=== PATIENT | female | born 1955 | race Caucasian/White ===

== ENCOUNTER 2017-05-05 15:51 | Inpatient (IN) ==
[2017-05-05] MEDS ORDERED: CLINDAMYCIN INJ 600 MG in PREMIX 1 EACH IV STA (17:28)
[2017-05-05] MEDS ORDERED: methylPREDNISolone SOD SUC 125 MG/2 ML VIAL IV STA (17:28)
[2017-05-05] MEDS ORDERED: FUROSEMIDE 100 MG/10 ML VIAL IV STA (17:28)
[2017-05-05] MEDS ORDERED: ONDANSETRON 4 MG/2 ML VIAL IV STA (17:28)
[2017-05-05] MEDS ORDERED: ALBUTEROL NEB SOLN 5 MG/ML 20 ML/BOTTLE RESP TX SCH (17:30)
[2017-05-05] MEDS ORDERED: CLINDAMYCIN INJ 50 ML IV ONE (17:54)
[2017-05-05] MEDS ORDERED: ONDANSETRON 4 MG/2 ML VIAL ONE (17:54)
[2017-05-05] MEDS ORDERED: methylPREDNISolone SOD SUC 125 MG/2 ML VIAL ONE (17:55)
[2017-05-05] MEDS ORDERED: FUROSEMIDE 100 MG/10 ML VIAL ONE (17:55)
[2017-05-05 18:27] LABS: Basophils # 0.1 10*3/uL (0.0-0.2); Basophils % 0.7 % (0.0-0.8); Eosinophils # 0.2 10*3/uL (0.0-0.87); Eosinophils % 2.1 % (0.00-10.9); Hemoglobin 8.7 GM/DL (12.0-16.0); Immature Granulocytes % 1.1 %; Immature Granulocytes Absolute 0.12 #; Lymphocytes # 2.2 10*3/uL (1.4-4.0); Lymphocytes % 20.4 % (21.3-54.2); Mean Corpuscular HGB Conc 28.5 GM/DL (32-36); Mean Corpuscular Hemoglobin 26 PG (27-34); Mean Corpuscular Volume 90.8 FL (87-102); Mean Platelet Volume 11.2 FL (9.6-12.0); Monocytes # 0.7 10*3/uL (0.11-0.8); Monocytes % 6.1 % (1.7-12.7); Neutrophils # 7.5 10*3/uL (1.4-7.4); Neutrophils % 69.6 % (38.7-73.9); Platelet Count 99 T/CUMM (130-400); Red Blood Count 3.36 MC/CUMM (3.8-5.5); White Blood Count 10.8 T/CUMM (4-12)
[2017-05-05 18:38] LABS: Ammonia 24 UMOL/L (11-32)
[2017-05-05 18:41] LABS: Lactic Acid 0.9 MMOL/L (0.4-2.0)
[2017-05-05 18:43] LABS: Apearance,Urine CLEAR (Clear); Bilirubin,Urine Negative (Negative); Blood, Urine Negative (Negative); Glucose,Urine (UA) Negative (Negative); Ketones,Urine Negative (Negative); Mucus,Urine Occasional /LPF (Occasional); Nitrite,Urine Negative (Negative); Protein,Urine 30 MG/DL; RBC,Urine 1 /HPF (0-4); Urine Color Yellow (Yellow); Urine Specific Gravity 1.009 (1.001-1.035); Urine Urobilinogen < 2.0 EU/DL (0.2-1.0); WBC,Urine 2 /HPF (0-6)
[2017-05-05 18:43] LABS: Alanine Aminotransferase 26 U/L (13-56); Albumin 2.9 G/DL (3.4-5.0); Alkaline Phosphatase 175 U/L (45-117); Aspartate Amino Transferase 35 U/L (0-37); Blood Urea Nitrogen 14 MG/DL (7-18); Calcium 8.4 MG/DL (8.5-10.1); Glucose 147 MG/DL (74-106); Magnesium 2.2 MG/DL (1.8-2.4); Potassium 5.6 MMOL/L (3.5-5.1); Sodium 136 MMOL/L (136-145); Total Protein 7.1 G/DL (6.4-8.3); Troponin I Only < 0.015 NG/ML (0.00-0.045)
[2017-05-05 18:46] LABS: Hematocrit 30.5 VOL% (35.7-47.0)
[2017-05-05] MEDS ORDERED: ONDANSETRON 4 MG/2 ML VIAL IV PRN (19:39)
[2017-05-05] MEDS ORDERED: DEXTROSE 50% 25 GM/50 ML VIAL IV PRN (19:39)
[2017-05-05] MEDS ORDERED: SODIUM POLYSTYRENE SULFATE 15 GM/60 ML BOTTLE PO ONE (19:39)
[2017-05-05] MEDS ORDERED: GLUCAGON 1 MG VIAL IM PRN (19:39)
[2017-05-05] MEDS ORDERED: rOPINIRole 1 MG TABLET PO PRN (19:46)
[2017-05-05] MEDS ORDERED: LACTULOSE 160 GM/240 ML BOTTLE PO PRN (21:04)
[2017-05-05] MEDS: RIFAXIMIN 550 MG TABLET PO SCH (22:00)
[2017-05-05] MEDS: PREGABALIN 100 MG CAPSULE PO SCH (22:00)
[2017-05-05] MEDS: LEVOFLOXACIN INJ 750 MG in PREMIX 1 EACH IV SCH (22:01)
[2017-05-05] MEDS: PROPRANOLOL 10 MG TABLET PO SCH (22:01)
[2017-05-05] MEDS: INSULIN REGULAR 100 UNIT/ML SUBCUT SCH (22:23)
[2017-05-05] MEDS: traZODone 50 MG TABLET PO SCH (23:07)
[2017-05-05] MEDS: ALBUTEROL/IPRATROPIUM 3 ML NEB RESP TX SCH (23:48)
[2017-05-06] MEDS: LEVOTHYROXINE 75 MCG TABLET PO SCH (06:11)
[2017-05-06 06:33] LABS: Basophils % 0.2 % (0.0-0.8); Hematocrit 29.7 VOL% (35.7-47.0); Hemoglobin 8.6 GM/DL (12.0-16.0); Immature Granulocytes % 1.7 %; Immature Granulocytes Absolute 0.09 #; Lymphocytes # 0.7 10*3/uL (1.4-4.0); Lymphocytes % 13.4 % (21.3-54.2); Mean Corpuscular Hemoglobin 26 PG (27-34); Mean Corpuscular Volume 90.3 FL (87-102); Mean Platelet Volume 11.3 FL (9.6-12.0); Monocytes # 0.1 10*3/uL (0.11-0.8); Monocytes % 0.9 % (1.7-12.7); Neutrophils # 4.6 10*3/uL (1.4-7.4); Neutrophils % 83.8 % (38.7-73.9); Red Blood Count 3.29 MC/CUMM (3.8-5.5); Red Cell Distribution Width 17.8 % (9.3-17.3); White Blood Count 5.4 T/CUMM (4-12)
[2017-05-06 06:40] LABS: Platelet Count 86 T/CUMM (130-400)
[2017-05-06 06:55] LABS: Giant Platelets Few; Hypochromasia 1+; Platelet Estimate Decreased
[2017-05-06 06:56] LABS: Ovalocytes Slight
[2017-05-06] MEDS ORDERED: LACTULOSE 20 GM/30 ML UDCUP PO PRN (07:00)
[2017-05-06 07:05] LABS: Albumin 2.7 G/DL (3.4-5.0); Bilirubin,Total 0.8 MG/DL (0.2-1.0); Calcium 8.4 MG/DL (8.5-10.1); Osmolality,Calculated 288.3 MOS/KG (273-304); Potassium 5.1 MMOL/L (3.5-5.1); Total Protein 6.7 G/DL (6.4-8.3)
[2017-05-06] MEDS: ALBUTEROL/IPRATROPIUM 3 ML NEB RESP TX SCH ×2 (07:32→19:04)
[2017-05-06] MEDS: ASPIRIN EC 81 MG TABLET PO SCH (09:24)
[2017-05-06] MEDS: PREGABALIN 100 MG CAPSULE PO SCH ×2 (09:24→20:47)
[2017-05-06] MEDS: SPIRONOLACTONE 50 MG TABLET PO SCH (09:24)
[2017-05-06] MEDS: PANTOPRAZOLE 40 MG TABLET PO SCH (09:24)
[2017-05-06] MEDS: CHOLECALCIFEROL 1,000 UNIT TABLET PO SCH (09:24)
[2017-05-06] MEDS: EZETIMIBE 10 MG TABLET PO SCH (09:24)
[2017-05-06] MEDS: PROPRANOLOL 10 MG TABLET PO SCH ×3 (09:24→20:46)
[2017-05-06] MEDS: RIFAXIMIN 550 MG TABLET PO SCH ×2 (09:24→20:47)
[2017-05-06] MEDS: CYCLOBENZAPRINE 10 MG TABLET PO SCH (09:24)
[2017-05-06] MEDS: INSULIN REGULAR 100 UNIT/ML SUBCUT SCH ×3 (09:25→16:29)
[2017-05-06] MEDS: SERTRALINE 50 MG TABLET PO SCH (09:25)
[2017-05-06] MEDS: INSULIN GLARGINE 100 UNIT/ML SUBCUT SCH (09:30)
[2017-05-06] MEDS: ACETAMINOPHEN 325 MG TABLET PO PRN ×2 (16:00→20:49)
[2017-05-06] MEDS: FUROSEMIDE 40 MG/4 ML VIAL IV SCH (17:21)
[2017-05-06] MEDS: traZODone 50 MG TABLET PO SCH (20:48)
[2017-05-06] MEDS: LEVOFLOXACIN INJ 750 MG in PREMIX 1 EACH IV SCH (20:53)
[2017-05-07] MEDS: INSULIN REGULAR 100 UNIT/ML SUBCUT SCH ×5 (00:07→21:48)
[2017-05-07] MEDS: ALBUTEROL/IPRATROPIUM 3 ML NEB RESP TX SCH ×5 (00:44→20:08)
[2017-05-07] MEDS: LEVOTHYROXINE 75 MCG TABLET PO SCH (05:22)
[2017-05-07 05:48] LABS: Basophils # 0.1 10*3/uL (0.0-0.2); Basophils % 0.6 % (0.0-0.8); Eosinophils # 0.2 10*3/uL (0.0-0.87); Eosinophils % 2.1 % (0.00-10.9); Hematocrit 29.1 VOL% (35.7-47.0); Hemoglobin 8.4 GM/DL (12.0-16.0); Immature Granulocytes % 0.7 %; Immature Granulocytes Absolute 0.07 #; Lymphocytes # 3.3 10*3/uL (1.4-4.0); Lymphocytes % 30.8 % (21.3-54.2); Mean Corpuscular HGB Conc 28.9 GM/DL (32-36); Mean Corpuscular Hemoglobin 26 PG (27-34); Mean Platelet Volume 11.3 FL (9.6-12.0); Monocytes # 0.9 10*3/uL (0.11-0.8); Neutrophils # 6.2 10*3/uL (1.4-7.4); Neutrophils % 57.8 % (38.7-73.9); Platelet Count 102 T/CUMM (130-400); Red Blood Count 3.27 MC/CUMM (3.8-5.5); Red Cell Distribution Width 17.7 % (9.3-17.3); White Blood Count 10.7 T/CUMM (4-12)
[2017-05-07 06:08] LABS: Hypochromasia 1+; Microcytosis 1+; Platelet Estimate Adequate
[2017-05-07 06:21] LABS: Calcium 8.2 MG/DL (8.5-10.1); Osmolality,Calculated 284.3 MOS/KG (273-304); Potassium 4.4 MMOL/L (3.5-5.1)
[2017-05-07] MEDS: INSULIN GLARGINE 100 UNIT/ML SUBCUT SCH (09:56)
[2017-05-07] MEDS: FUROSEMIDE 40 MG/4 ML VIAL IV SCH ×2 (09:57→15:14)
[2017-05-07] MEDS: SERTRALINE 50 MG TABLET PO SCH (09:58)
[2017-05-07] MEDS: CYCLOBENZAPRINE 10 MG TABLET PO SCH (09:58)
[2017-05-07] MEDS: RIFAXIMIN 550 MG TABLET PO SCH ×2 (09:58→21:46)
[2017-05-07] MEDS: PREGABALIN 100 MG CAPSULE PO SCH ×2 (09:58→21:45)
[2017-05-07] MEDS: PROPRANOLOL 10 MG TABLET PO SCH ×3 (09:58→21:45)
[2017-05-07] MEDS: ASPIRIN EC 81 MG TABLET PO SCH (09:58)
[2017-05-07] MEDS: SPIRONOLACTONE 50 MG TABLET PO SCH (09:58)
[2017-05-07] MEDS: PANTOPRAZOLE 40 MG TABLET PO SCH (09:58)
[2017-05-07] MEDS: CHOLECALCIFEROL 1,000 UNIT TABLET PO SCH (09:58)
[2017-05-07] MEDS: EZETIMIBE 10 MG TABLET PO SCH (09:58)
[2017-05-07] MEDS: ACETAMINOPHEN 325 MG TABLET PO PRN (12:18)
[2017-05-07] MEDS: traZODone 50 MG TABLET PO SCH (21:46)
[2017-05-07] MEDS: LEVOFLOXACIN INJ 750 MG in PREMIX 1 EACH IV SCH (21:52)
[2017-05-08] MEDS: ALBUTEROL/IPRATROPIUM 3 ML NEB RESP TX SCH ×4 (00:09→20:10)
[2017-05-08 05:24] LABS: Basophils # 0.1 10*3/uL (0.0-0.2); Basophils % 0.7 % (0.0-0.8); Eosinophils # 0.3 10*3/uL (0.0-0.87); Eosinophils % 3.6 % (0.00-10.9); Hematocrit 28.9 VOL% (35.7-47.0); Hemoglobin 8.5 GM/DL (12.0-16.0); Immature Granulocytes % 0.6 %; Immature Granulocytes Absolute 0.05 #; Lymphocytes # 2.4 10*3/uL (1.4-4.0); Mean Corpuscular HGB Conc 29.4 GM/DL (32-36); Mean Corpuscular Hemoglobin 26 PG (27-34); Mean Corpuscular Volume 87.6 FL (87-102); Mean Platelet Volume 11.5 FL (9.6-12.0); Monocytes # 0.7 10*3/uL (0.11-0.8); Monocytes % 8.8 % (1.7-12.7); Neutrophils # 4.8 10*3/uL (1.4-7.4); Neutrophils % 57.3 % (38.7-73.9); Platelet Count 103 T/CUMM (130-400); Red Cell Distribution Width 17.7 % (9.3-17.3); White Blood Count 8.3 T/CUMM (4-12)
[2017-05-08] MEDS: LEVOTHYROXINE 75 MCG TABLET PO SCH (05:50)
[2017-05-08 05:58] LABS: Calcium 8.1 MG/DL (8.5-10.1); Osmolality,Calculated 284.3 MOS/KG (273-304); Potassium 4.2 MMOL/L (3.5-5.1)
[2017-05-08 06:17] LABS: Giant Platelets Few; Hypochromasia 1+; Microcytosis Slight; Ovalocytes Slight; Platelet Estimate Decreased
[2017-05-08] MEDS: INSULIN REGULAR 100 UNIT/ML SUBCUT SCH ×4 (09:07→21:32)
[2017-05-08] MEDS: INSULIN GLARGINE 100 UNIT/ML SUBCUT SCH (09:33)
[2017-05-08] MEDS: SERTRALINE 50 MG TABLET PO SCH (09:34)
[2017-05-08] MEDS: PREGABALIN 100 MG CAPSULE PO SCH ×2 (09:34→21:29)
[2017-05-08] MEDS: CHOLECALCIFEROL 1,000 UNIT TABLET PO SCH (09:34)
[2017-05-08] MEDS: EZETIMIBE 10 MG TABLET PO SCH (09:34)
[2017-05-08] MEDS: ASPIRIN EC 81 MG TABLET PO SCH (09:34)
[2017-05-08] MEDS: RIFAXIMIN 550 MG TABLET PO SCH ×2 (09:34→21:28)
[2017-05-08] MEDS: PROPRANOLOL 10 MG TABLET PO SCH ×3 (09:34→21:28)
[2017-05-08] MEDS: FUROSEMIDE 40 MG/4 ML VIAL IV SCH (09:35)
[2017-05-08] MEDS: SPIRONOLACTONE 50 MG TABLET PO SCH (09:35)
[2017-05-08] MEDS: CYCLOBENZAPRINE 10 MG TABLET PO SCH (09:35)
[2017-05-08] MEDS: PANTOPRAZOLE 40 MG TABLET PO SCH (09:35)
[2017-05-08] MEDS ORDERED: traZODone 50 MG TABLET PO PRN (11:37)
[2017-05-08] MEDS ORDERED: KETOROLAC 30 MG/1 ML VIAL IM ONE (13:15)
[2017-05-08] MEDS: NYSTATIN 500,000 UNIT/5 ML UDCUP SWISH/SWAL SCH ×3 (14:24→21:30)
[2017-05-08] MEDS: FUROSEMIDE 40 MG TABLET PO SCH (17:12)
[2017-05-08] MEDS ORDERED: ZALEPLON 5 MG CAPSULE PO PRN (19:00)
[2017-05-08] MEDS: ACETAMINOPHEN 325 MG TABLET PO PRN (21:27)
[2017-05-08] MEDS: NYSTATIN CREAM 15 GM TUBE TOP SCH (21:31)
[2017-05-08] MEDS: LEVOFLOXACIN INJ 750 MG in PREMIX 1 EACH IV SCH (21:33)
[2017-05-09] MEDS: ALBUTEROL/IPRATROPIUM 3 ML NEB RESP TX SCH ×3 (00:27→13:00)
[2017-05-09] MEDS ORDERED: KETOROLAC 15 MG/1 ML VIAL IV ONE (01:00)
[2017-05-09] MEDS: LEVOTHYROXINE 75 MCG TABLET PO SCH (06:01)
[2017-05-09 06:06] LABS: Basophils # 0.1 10*3/uL (0.0-0.2); Basophils % 0.7 % (0.0-0.8); Eosinophils # 0.4 10*3/uL (0.0-0.87); Eosinophils % 4.8 % (0.00-10.9); Hematocrit 28.4 VOL% (35.7-47.0); Hemoglobin 8.8 GM/DL (12.0-16.0); Immature Granulocytes % 0.4 %; Immature Granulocytes Absolute 0.03 #; Lymphocytes # 2.6 10*3/uL (1.4-4.0); Lymphocytes % 34.1 % (21.3-54.2); Mean Corpuscular Hemoglobin 26 PG (27-34); Mean Platelet Volume 11.5 FL (9.6-12.0); Monocytes # 0.6 10*3/uL (0.11-0.8); Monocytes % 8.4 % (1.7-12.7); Neutrophils # 3.9 10*3/uL (1.4-7.4); Neutrophils % 51.6 % (38.7-73.9); Platelet Count 90 T/CUMM (130-400); Red Blood Count 3.38 MC/CUMM (3.8-5.5); Red Cell Distribution Width 17.5 % (9.3-17.3); White Blood Count 7.5 T/CUMM (4-12)
[2017-05-09 06:34] LABS: Hypochromasia 2+; Macrocytosis 1+; Platelet Estimate Decreased
[2017-05-09 06:37] LABS: Calcium 8.5 MG/DL (8.5-10.1); Osmolality,Calculated 276.8 MOS/KG (273-304); Potassium 3.6 MMOL/L (3.5-5.1)
[2017-05-09] MEDS: INSULIN REGULAR 100 UNIT/ML SUBCUT SCH ×3 (07:23→17:16)
[2017-05-09] MEDS: INSULIN GLARGINE 100 UNIT/ML SUBCUT SCH (10:10)
[2017-05-09] MEDS: SPIRONOLACTONE 50 MG TABLET PO SCH (10:11)
[2017-05-09] MEDS: CHOLECALCIFEROL 1,000 UNIT TABLET PO SCH (10:11)
[2017-05-09] MEDS: SERTRALINE 50 MG TABLET PO SCH (10:11)
[2017-05-09] MEDS: EZETIMIBE 10 MG TABLET PO SCH (10:12)
[2017-05-09] MEDS: RIFAXIMIN 550 MG TABLET PO SCH (10:12)
[2017-05-09] MEDS: ASPIRIN EC 81 MG TABLET PO SCH (10:12)
[2017-05-09] MEDS: PANTOPRAZOLE 40 MG TABLET PO SCH (10:12)
[2017-05-09] MEDS: NYSTATIN CREAM 15 GM TUBE TOP SCH (10:12)
[2017-05-09] MEDS: PREGABALIN 100 MG CAPSULE PO SCH (10:12)
[2017-05-09] MEDS: FUROSEMIDE 40 MG TABLET PO SCH (10:12)
[2017-05-09] MEDS: CYCLOBENZAPRINE 10 MG TABLET PO SCH (10:12)
[2017-05-09] MEDS: PROPRANOLOL 10 MG TABLET PO SCH ×2 (10:12→14:23)
[2017-05-09] MEDS: NYSTATIN 500,000 UNIT/5 ML UDCUP SWISH/SWAL SCH ×3 (10:13→17:18)
[2017-05-09] MEDS ORDERED: POTASSIUM CHLORIDE 20 MEQ TABLET PO SCH (13:00)
[2017-05-09 16:32] VITALS: BP 112/57
[2017-05-09] MEDS ORDERED: ASCORBIC ACID 500 MG TABLET PO SCH (21:00)
[2017-05-10] MEDS ORDERED: FUROSEMIDE 40 MG TABLET PO SCH (09:00)
== END 2017-05-09 18:05 | disposition home or self-care (01) | DRG 193 ==
LOC: EDBD → EDUNIT# → N.ED 15:51 → SUATTDRO 18:10 → N.EDINP 18:10 → N.2E 20:53
PROVIDERS: ATTEND Internal Medicine Nephrology

== ENCOUNTER 2019-09-10 12:47 | Inpatient (IN) ==
[2019-09-10] MEDS ORDERED: PANTOPRAZOLE 40 MG VIAL IV STA (13:21)
[2019-09-10] MEDS ORDERED: SODIUM CHLORIDE 0.9% 500 ML IV STA (13:21)
[2019-09-10] MEDS ORDERED: SODIUM CHLORIDE 0.9% 1,000 ML IV STA (13:21)
[2019-09-10 14:19] LABS: Basophils % 0.6 % (0.0-0.8); Eosinophils # 0.1 10*3/uL (0.0-0.87); Eosinophils % 1.9 % (0.00-10.9); Hematocrit 29.8 VOL% (35.7-47.0); Immature Granulocytes % 0.4 %; Immature Granulocytes Absolute 0.02 #; Lymphocytes # 1.1 10*3/uL (1.4-4.0); Lymphocytes % 20.8 % (21.3-54.2); Mean Corpuscular HGB Conc 30.2 GM/DL (32-36); Mean Platelet Volume 11.1 FL (9.6-12.0); Monocytes % 7.8 % (1.7-12.7); Neutrophils % 68.5 % (38.7-73.9); Platelet Count 87 T/CUMM (130-400); Red Blood Count 3.92 MC/CUMM (3.8-5.5); Red Cell Distribution Width 18.7 % (9.3-17.3); White Blood Count 5.4 T/CUMM (4-12)
[2019-09-10 14:41] LABS: Albumin 2.7 G/DL (3.4-5.0); Bilirubin,Total 2.9 MG/DL (0.2-1.0); Calcium 8.9 MG/DL (8.5-10.1); Osmolality,Calculated 290.3 MOS/KG (273-304); Total Protein 6.1 G/DL (6.4-8.3)
[2019-09-10 14:48] LABS: Apearance,Urine CLEAR (Clear); Bilirubin,Urine Negative (Negative); Blood, Urine Negative (Negative); Glucose,Urine (UA) 150 mg/dL (Negative); Ketones,Urine Negative (Negative); Mucus,Urine Occasional /LPF (Occasional); Nitrite,Urine Negative (Negative); Protein,Urine Negative; RBC,Urine <1 /HPF (0-4); Squamous Epithelial Cell,Urine Occasional /HPF (0-10); Urine Color Yellow (Yellow); Urine Specific Gravity 1.019 (1.001-1.035); Urine Urobilinogen < 2.0 EU/DL (0.2-1.0)
[2019-09-10 14:57] LABS: Anisocytosis Slight; Hypochromasia Slight; Microcytosis 1+
[2019-09-10 15:52] LABS: INR 1.2; PT Patient Result 12.3 SECS (9.8-11.9); Partial Thromboplastin Time 27.1 SECS (23.9-33.8)
[2019-09-10] MEDS ORDERED: FUROSEMIDE 40 MG/4 ML VIAL ONE (15:52)
[2019-09-10] MEDS ORDERED: MORPHINE 4 MG/1 ML VIAL IV STA (15:52)
[2019-09-10] MEDS ORDERED: FUROSEMIDE 40 MG/4 ML VIAL IV STA (15:52)
[2019-09-10] MEDS ORDERED: GLUCAGON 1 MG VIAL IM PRN (16:20)
[2019-09-10] MEDS ORDERED: DEXTROSE 10% 250 ML BAG IV PRN (16:20)
[2019-09-10] MEDS ORDERED: guaiFENesin/DM ER 600-30 MG TABLET PO PRN (16:20)
[2019-09-10] MEDS ORDERED: ALBUTEROL/IPRATROPIUM 3 ML NEB RESP TX PRN (16:20)
[2019-09-10] MEDS ORDERED: DEXTROSE 50% 25 GM/50 ML VIAL IV PRN (16:26)
[2019-09-10 19:57] LABS: Hemoglobin 9.2 GM/DL (12.0-16.0)
[2019-09-10] MEDS ORDERED: HALOPERIDOL 5 MG/ML AMP IM ONE (20:19)
[2019-09-10] MEDS: LACTULOSE 20 GM/30 ML UDCUP PO SCH ×2 (20:34→20:36)
[2019-09-10] MEDS: SODIUM CHLORIDE 0.9% 1,000 ML IV SCH (20:42)
[2019-09-11] MEDS: LACTULOSE 20 GM/30 ML UDCUP PO SCH ×6 (01:02→20:11)
[2019-09-11 01:38] LABS: Hematocrit 30.3 VOL% (35.7-47.0); Hemoglobin 8.9 GM/DL (12.0-16.0)
[2019-09-11] MEDS: SODIUM CHLORIDE 0.9% 1,000 ML IV SCH ×3 (04:43→20:24)
[2019-09-11 06:08] LABS: Basophils # 0.1 10*3/uL (0.0-0.2); Eosinophils # 0.1 10*3/uL (0.0-0.87); Eosinophils % 2.5 % (0.00-10.9); Hematocrit 30.1 VOL% (35.7-47.0); Hemoglobin 8.9 GM/DL (12.0-16.0); Immature Granulocytes % 0.6 %; Immature Granulocytes Absolute 0.03 #; Lymphocytes # 1.1 10*3/uL (1.4-4.0); Lymphocytes % 23.7 % (21.3-54.2); Mean Corpuscular HGB Conc 29.6 GM/DL (32-36); Mean Corpuscular Volume 76.8 FL (87-102); Mean Platelet Volume 10.1 FL (9.6-12.0); Monocytes % 8.1 % (1.7-12.7); Neutrophils % 64.1 % (38.7-73.9); Platelet Count 80 T/CUMM (130-400); Red Blood Count 3.92 MC/CUMM (3.8-5.5); Red Cell Distribution Width 18.7 % (9.3-17.3); White Blood Count 4.8 T/CUMM (4-12)
[2019-09-11 06:26] LABS: INR 1.2; PT Patient Result 12.3 SECS (9.8-11.9)
[2019-09-11 06:42] LABS: Albumin 2.5 G/DL (3.4-5.0); Bilirubin,Total 3.4 MG/DL (0.2-1.0); Calcium 8.4 MG/DL (8.5-10.1); Osmolality,Calculated 285.4 MOS/KG (273-304); Thyroid Stimulating Hormone 2.46 uIU/ml (0.358-3.74); Total Protein 6.1 G/DL (6.4-8.3)
[2019-09-11 08:37] LABS: Hematocrit 28.3 VOL% (35.7-47.0); Hemoglobin 8.3 GM/DL (12.0-16.0)
[2019-09-11] MEDS: metOLazone 5 MG TABLET PO SCH (10:27)
[2019-09-11] MEDS: INSULIN GLARGINE 100 UNIT/ML SUBCUT SCH (10:27)
[2019-09-11] MEDS: LEVOTHYROXINE 75 MCG TABLET PO SCH (10:27)
[2019-09-11] MEDS: GABAPENTIN 600 MG TABLET PO SCH ×2 (10:27→20:13)
[2019-09-11] MEDS: FUROSEMIDE 40 MG TABLET PO SCH ×2 (10:27→20:12)
[2019-09-11] MEDS: PANTOPRAZOLE 40 MG TABLET PO SCH (10:27)
[2019-09-11] MEDS: busPIRone 10 MG TABLET PO SCH ×3 (10:27→20:13)
[2019-09-11] MEDS: RIFAXIMIN 550 MG TABLET PO SCH ×2 (10:36→20:12)
[2019-09-11 12:02] LABS: Lymphocytes 23 % (20-55); Metamyelocytes 1 %; Platelet Estimate Decreased; Polychromasia Slight; Segmented Neutrophils 73 % (50-85); Total Cells Counted 100
[2019-09-11] MEDS: SERTRALINE 50 MG TABLET PO SCH (20:12)
[2019-09-11] MEDS: ACETAMINOPHEN 325 MG TABLET PO PRN (20:13)
[2019-09-11] MEDS: rOPINIRole 1 MG TABLET PO PRN (20:13)
[2019-09-12] MEDS: LACTULOSE 20 GM/30 ML UDCUP PO SCH ×6 (00:44→21:34)
[2019-09-12] MEDS: ACETAMINOPHEN 325 MG TABLET PO PRN ×3 (04:28→19:17)
[2019-09-12] MEDS: SODIUM CHLORIDE 0.9% 1,000 ML IV SCH ×4 (04:32→23:00)
[2019-09-12] MEDS ORDERED: LIDOCAINE 5% PATCH TRANSDERM PRN (04:37)
[2019-09-12 06:12] LABS: Basophils # 0.1 10*3/uL (0.0-0.2); Basophils % 1.2 % (0.0-0.8); Eosinophils # 0.2 10*3/uL (0.0-0.87); Eosinophils % 3.1 % (0.00-10.9); Hematocrit 30.5 VOL% (35.7-47.0); Hemoglobin 9.2 GM/DL (12.0-16.0); Immature Granulocytes % 0.4 %; Immature Granulocytes Absolute 0.02 #; Lymphocytes # 1.2 10*3/uL (1.4-4.0); Lymphocytes % 24.1 % (21.3-54.2); Mean Corpuscular HGB Conc 30.2 GM/DL (32-36); Mean Corpuscular Volume 76.8 FL (87-102); Mean Platelet Volume 10.8 FL (9.6-12.0); Monocytes % 10.9 % (1.7-12.7); Neutrophils % 60.3 % (38.7-73.9); Platelet Count 81 T/CUMM (130-400); Red Blood Count 3.97 MC/CUMM (3.8-5.5); Red Cell Distribution Width 18.8 % (9.3-17.3); White Blood Count 4.9 T/CUMM (4-12)
[2019-09-12 06:17] LABS: INR 1.1; PT Patient Result 12.2 SECS (9.8-11.9)
[2019-09-12 06:30] LABS: Albumin 2.5 G/DL (3.4-5.0); Bilirubin,Total 2.1 MG/DL (0.2-1.0); Total Protein 6.3 G/DL (6.4-8.3)
[2019-09-12 06:36] LABS: Hypochromasia 1+; Microcytosis Slight; Platelet Estimate Decreased
[2019-09-12] MEDS: FUROSEMIDE 40 MG TABLET PO SCH ×2 (08:49→21:39)
[2019-09-12] MEDS: RIFAXIMIN 550 MG TABLET PO SCH ×2 (08:49→21:36)
[2019-09-12] MEDS: GABAPENTIN 600 MG TABLET PO SCH ×2 (08:49→21:39)
[2019-09-12] MEDS: PANTOPRAZOLE 40 MG TABLET PO SCH (08:49)
[2019-09-12] MEDS: busPIRone 10 MG TABLET PO SCH ×3 (08:49→21:38)
[2019-09-12] MEDS: metOLazone 5 MG TABLET PO SCH (08:49)
[2019-09-12] MEDS: LEVOTHYROXINE 75 MCG TABLET PO SCH (08:50)
[2019-09-12] MEDS: INSULIN GLARGINE 100 UNIT/ML SUBCUT SCH (08:50)
[2019-09-12] MEDS ORDERED: MAGNESIUM SULF RIDER 4 GM in PREMIX 1 EACH IV PRN (11:17)
[2019-09-12] MEDS ORDERED: POTASSIUM CHLORIDE 20 MEQ TABLET PO PRN (11:21)
[2019-09-12] MEDS ORDERED: GLUCAGON 1 MG VIAL IM PRN (11:25)
[2019-09-12] MEDS ORDERED: DEXTROSE 50% 25 GM/50 ML VIAL IV PRN (11:25)
[2019-09-12] MEDS: INSULIN LISPRO 100 UNIT/ML SUBCUT SCH ×3 (12:17→21:44)
[2019-09-12] MEDS: MAGNESIUM SULF RIDER 2 GM in PREMIX 1 EACH IV PRN (14:20)
[2019-09-12] MEDS: POTASSIUM CHLORIDE 20 MEQ TABLET PO PRN ×4 (14:21→22:58)
[2019-09-12] MEDS: SERTRALINE 50 MG TABLET PO SCH (21:39)
[2019-09-12] MEDS: rOPINIRole 1 MG TABLET PO PRN (23:58)
[2019-09-13] MEDS ORDERED: diphenhydrAMINE 50 MG/1 ML VIAL IV ONE (01:11)
[2019-09-13] MEDS: LACTULOSE 20 GM/30 ML UDCUP PO SCH ×6 (02:10→23:26)
[2019-09-13 05:07] LABS: Basophils % 0.8 % (0.0-0.8); Eosinophils # 0.1 10*3/uL (0.0-0.87); Eosinophils % 2.7 % (0.00-10.9); Hematocrit 30.8 VOL% (35.7-47.0); Hemoglobin 9.2 GM/DL (12.0-16.0); Immature Granulocytes % 0.6 %; Immature Granulocytes Absolute 0.03 #; Lymphocytes # 1.3 10*3/uL (1.4-4.0); Lymphocytes % 25.4 % (21.3-54.2); Mean Corpuscular HGB Conc 29.9 GM/DL (32-36); Mean Corpuscular Volume 76.8 FL (87-102); Monocytes % 10.2 % (1.7-12.7); Neutrophils % 60.3 % (38.7-73.9); Platelet Count 78 T/CUMM (130-400); Red Blood Count 4.01 MC/CUMM (3.8-5.5); Red Cell Distribution Width 18.9 % (9.3-17.3); White Blood Count 5.2 T/CUMM (4-12)
[2019-09-13 05:19] LABS: INR 1.1; PT Patient Result 11.9 SECS (9.8-11.9)
[2019-09-13 05:28] LABS: Albumin 2.5 G/DL (3.4-5.0); Bilirubin,Total 1.6 MG/DL (0.2-1.0); Osmolality,Calculated 276.1 MOS/KG (273-304); Total Protein 6.3 G/DL (6.4-8.3)
[2019-09-13 05:55] LABS: Atypical Lymphocytes Few; Eosinophils 6 % (0-10); Lymphocytes 22 % (20-55); Segmented Neutrophils 68 % (50-85); Total Cells Counted 100
[2019-09-13 05:56] LABS: Hypochromasia 2+; Microcytosis 1+; Polychromasia Slight
[2019-09-13 05:57] LABS: Platelet Estimate Decreased
[2019-09-13] MEDS: SODIUM CHLORIDE 0.9% 1,000 ML IV SCH ×2 (06:44→15:57)
[2019-09-13] MEDS: LEVOTHYROXINE 75 MCG TABLET PO SCH (06:44)
[2019-09-13] MEDS: INSULIN LISPRO 100 UNIT/ML SUBCUT SCH ×4 (09:24→23:28)
[2019-09-13] MEDS: LACTATED RINGERS 1,000 ML IV SCH (09:24)
[2019-09-13] MEDS: POTASSIUM CHLORIDE 20 MEQ TABLET PO PRN ×2 (10:09→15:42)
[2019-09-13] MEDS: ACETAMINOPHEN 325 MG TABLET PO PRN (10:09)
[2019-09-13] MEDS: RIFAXIMIN 550 MG TABLET PO SCH ×2 (10:10→23:25)
[2019-09-13] MEDS: PANTOPRAZOLE 40 MG TABLET PO SCH (10:11)
[2019-09-13] MEDS: FUROSEMIDE 40 MG TABLET PO SCH ×2 (10:11→23:26)
[2019-09-13] MEDS: GABAPENTIN 600 MG TABLET PO SCH ×2 (10:11→23:28)
[2019-09-13] MEDS: metOLazone 5 MG TABLET PO SCH (10:11)
[2019-09-13] MEDS: busPIRone 10 MG TABLET PO SCH ×3 (10:12→23:26)
[2019-09-13] MEDS: INSULIN GLARGINE 100 UNIT/ML SUBCUT SCH ×3 (10:12→18:16)
[2019-09-13] MEDS: MAGNESIUM SULF RIDER 2 GM in PREMIX 1 EACH IV PRN (10:14)
[2019-09-13] MEDS ORDERED: diphenhydrAMINE CAP 25 MG CAPSULE PO PRN (14:55)
[2019-09-13] MEDS: NYSTATIN 500,000 UNIT/5 ML UDCUP SWISH/SWAL SCH ×2 (18:15→23:27)
[2019-09-13] MEDS: rOPINIRole 1 MG TABLET PO PRN (23:26)
[2019-09-13] MEDS: SERTRALINE 50 MG TABLET PO SCH (23:27)
[2019-09-13] MEDS: DESITIN 4OZ/NYSTATIN 15 GRAM MIXTURE PASTE TOP SCH (23:28)
[2019-09-14] MEDS: SODIUM CHLORIDE 0.9% 1,000 ML IV SCH ×2 (01:27→06:47)
[2019-09-14] MEDS: LACTULOSE 20 GM/30 ML UDCUP PO SCH ×4 (01:28→12:00)
[2019-09-14] MEDS: LEVOTHYROXINE 75 MCG TABLET PO SCH (06:36)
[2019-09-14 07:19] LABS: Calcium 8.2 MG/DL (8.5-10.1); Osmolality,Calculated 269.5 MOS/KG (273-304)
[2019-09-14] MEDS ORDERED: propofoL 200 MG/20 ML VIAL IV ONE (09:00)
[2019-09-14] MEDS ORDERED: LIDOCAINE 2% 5 ML VIAL ONE (09:00)
[2019-09-14] MEDS: INSULIN LISPRO 100 UNIT/ML SUBCUT SCH ×2 (11:20→11:39)
[2019-09-14] MEDS: NYSTATIN 500,000 UNIT/5 ML UDCUP SWISH/SWAL SCH ×2 (11:21→12:00)
[2019-09-14] MEDS: GABAPENTIN 600 MG TABLET PO SCH (11:21)
[2019-09-14] MEDS: PANTOPRAZOLE 40 MG TABLET PO SCH (11:21)
[2019-09-14] MEDS: busPIRone 10 MG TABLET PO SCH (11:21)
[2019-09-14] MEDS: metOLazone 5 MG TABLET PO SCH (11:22)
[2019-09-14] MEDS: FUROSEMIDE 40 MG TABLET PO SCH (11:22)
[2019-09-14] MEDS: DESITIN 4OZ/NYSTATIN 15 GRAM MIXTURE PASTE TOP SCH (11:22)
[2019-09-14] MEDS: INSULIN GLARGINE 100 UNIT/ML SUBCUT SCH (11:26)
[2019-09-14] MEDS: LACTATED RINGERS 1,000 ML IV SCH (11:26)
[2019-09-14] MEDS: RIFAXIMIN 550 MG TABLET PO SCH (11:26)
[2019-09-14] MEDS ORDERED: FLUCONAZOLE 200 MG TABLET PO ONE (14:00)
[2019-09-14 14:51] VITALS: BP 124/49
== END 2019-09-14 14:55 | disposition home or self-care (01) | DRG 442 ==
LOC: N.ED 12:47 → N.EDINP 16:20 → SUATTDRO 16:20 → N.EDINP 18:33 → N.3E 19:04
PROVIDERS: ADMIT Internal Medicine; ATTEND Internal Medicine Geriatric Medicine

== ENCOUNTER 2019-10-06 16:16 | Inpatient (IN) ==
[2019-10-06] MEDS ORDERED: FUROSEMIDE 100 MG/10 ML VIAL IV STA (16:50)
[2019-10-06] MEDS ORDERED: ALBUTEROL/IPRATROPIUM 3 ML NEB RESP TX STA (16:50)
[2019-10-06 17:07] LABS: Basophils # 0.1 10*3/uL (0.0-0.2); Eosinophils # 0.2 10*3/uL (0.0-0.87); Eosinophils % 3.3 % (0.00-10.9); Hematocrit 29.2 VOL% (35.7-47.0); Hemoglobin 8.7 GM/DL (12.0-16.0); Immature Granulocytes % 0.6 %; Immature Granulocytes Absolute 0.03 #; Lymphocytes # 1.1 10*3/uL (1.4-4.0); Lymphocytes % 23.1 % (21.3-54.2); Mean Corpuscular HGB Conc 29.8 GM/DL (32-36); Mean Corpuscular Volume 80.2 FL (87-102); Mean Platelet Volume 10.1 FL (9.6-12.0); Platelet Count 89 T/CUMM (130-400); Red Blood Count 3.64 MC/CUMM (3.8-5.5); Red Cell Distribution Width 24.4 % (9.3-17.3); White Blood Count 4.9 T/CUMM (4-12)
[2019-10-06 17:20] LABS: Albumin 2.4 G/DL (3.4-5.0); Bilirubin,Total 0.9 MG/DL (0.2-1.0); Osmolality,Calculated 284.5 MOS/KG (273-304); Total Protein 6.2 G/DL (6.4-8.3)
[2019-10-06 17:35] LABS: Anisocytosis 1+
[2019-10-06 17:36] LABS: Hypochromasia 2+; Microcytosis 1+; Platelet Estimate Decreased; Polychromasia Slight
[2019-10-06] MEDS ORDERED: LEVOFLOXACIN INJ 500 MG in PREMIX 1 EACH IV STA (17:45)
[2019-10-06] MEDS ORDERED: MAGNESIUM SULF RIDER 4 GM in PREMIX 1 EACH IV PRN (17:55)
[2019-10-06] MEDS ORDERED: DEXTROSE 50% 25 GM/50 ML VIAL IV PRN ×2 (17:55)
[2019-10-06] MEDS ORDERED: ZALEPLON 5 MG CAPSULE PO PRN (17:55)
[2019-10-06] MEDS ORDERED: GLUCAGON 1 MG VIAL IM PRN (17:55)
[2019-10-06] MEDS ORDERED: MAGNESIUM SULF RIDER 2 GM in PREMIX 1 EACH IV PRN (17:55)
[2019-10-06 18:45] LABS: Ferritin 18.4 ng/ml (8-252)
[2019-10-06] MEDS ORDERED: dimenhyDRINATE 50 MG TABLET PO PRN (18:46)
[2019-10-06] MEDS: INSULIN REGULAR 100 UNIT/ML SUBCUT SCH (21:03)
[2019-10-06] MEDS: traZODone 50 MG TABLET PO SCH (21:03)
[2019-10-06] MEDS: RIFAXIMIN 550 MG TABLET PO SCH (21:03)
[2019-10-06] MEDS: GABAPENTIN 600 MG TABLET PO SCH (21:03)
[2019-10-06] MEDS: LACTULOSE 20 GM/30 ML UDCUP PO SCH (21:03)
[2019-10-06] MEDS: busPIRone 10 MG TABLET PO SCH (21:03)
[2019-10-06] MEDS: rOPINIRole 1 MG TABLET PO SCH (21:03)
[2019-10-06] MEDS: rOPINIRole 4 MG TABLET PO SCH (21:03)
[2019-10-06] MEDS: SERTRALINE 100 MG TABLET PO SCH (21:04)
[2019-10-06] MEDS: DICLOFENAC SODIUM 75 MG TABLET PO SCH (21:04)
[2019-10-07] MEDS: ALBUTEROL INHALER 18 GM INH SCH ×4 (01:09→20:59)
[2019-10-07] MEDS: ACETAMINOPHEN 325 MG TABLET PO PRN ×2 (03:39→11:43)
[2019-10-07] MEDS: ONDANSETRON 4 MG/2 ML VIAL IV PRN (03:39)
[2019-10-07] MEDS: ALUMINUM/MAGNES/SIMETH MAX STR 30 ML UDCUP PO PRN (04:48)
[2019-10-07 06:51] LABS: Basophils % 0.7 % (0.0-0.8); Eosinophils # 0.2 10*3/uL (0.0-0.87); Eosinophils % 3.7 % (0.00-10.9); Hematocrit 28.8 VOL% (35.7-47.0); Hemoglobin 8.4 GM/DL (12.0-16.0); Immature Granulocytes % 0.6 %; Immature Granulocytes Absolute 0.03 #; Lymphocytes # 1.5 10*3/uL (1.4-4.0); Lymphocytes % 28.2 % (21.3-54.2); Mean Corpuscular HGB Conc 29.2 GM/DL (32-36); Mean Corpuscular Volume 81.4 FL (87-102); Mean Platelet Volume 10.5 FL (9.6-12.0); Monocytes % 7.6 % (1.7-12.7); Neutrophils % 59.2 % (38.7-73.9); Platelet Count 100 T/CUMM (130-400); Red Blood Count 3.54 MC/CUMM (3.8-5.5); Red Cell Distribution Width 24.6 % (9.3-17.3); White Blood Count 5.4 T/CUMM (4-12)
[2019-10-07 07:07] LABS: Hypochromasia 1+; Microcytosis 1+; Platelet Estimate Decreased
[2019-10-07 07:15] LABS: Albumin 2.2 G/DL (3.4-5.0); Bilirubin,Total 0.8 MG/DL (0.2-1.0); Ferritin 17.6 ng/ml (8-252); Total Protein 6.5 G/DL (6.4-8.3)
[2019-10-07 07:25] LABS: Osmolality,Calculated 283.5 MOS/KG (273-304)
[2019-10-07] MEDS: LEVOTHYROXINE 75 MCG TABLET PO SCH (08:59)
[2019-10-07] MEDS: CHOLECALCIFEROL 5,000 UNIT TABLET PO SCH (08:59)
[2019-10-07] MEDS: EZETIMIBE 10 MG TABLET PO SCH (08:59)
[2019-10-07] MEDS: metOLazone 5 MG TABLET PO SCH (08:59)
[2019-10-07] MEDS ORDERED: NON-FORMULARY MEDICATION (Biotin 5 MG) PO SCH (09:00)
[2019-10-07] MEDS: GABAPENTIN 600 MG TABLET PO SCH ×2 (09:00→20:58)
[2019-10-07] MEDS: ONDANSETRON 4 MG TABLET PO PRN (09:00)
[2019-10-07] MEDS ORDERED: PANTOPRAZOLE 40 MG TABLET PO SCH (09:00)
[2019-10-07] MEDS: LACTULOSE 20 GM/30 ML UDCUP PO SCH ×2 (09:00→21:00)
[2019-10-07] MEDS ORDERED: NABUMETONE PO SCH (09:00)
[2019-10-07] MEDS: RIFAXIMIN 550 MG TABLET PO SCH ×2 (09:00→20:58)
[2019-10-07] MEDS: ASPIRIN 325 MG TABLET PO SCH (09:00)
[2019-10-07] MEDS: CETIRIZINE 10 MG TABLET PO SCH (09:00)
[2019-10-07] MEDS: busPIRone 10 MG TABLET PO SCH ×3 (09:00→20:59)
[2019-10-07] MEDS: FUROSEMIDE 40 MG/4 ML VIAL IV SCH ×2 (09:01→16:21)
[2019-10-07] MEDS: INSULIN REGULAR 100 UNIT/ML SUBCUT SCH ×4 (09:01→20:56)
[2019-10-07] MEDS: POTASSIUM GLUCONATE 500 MG TABLET PO SCH (09:04)
[2019-10-07] MEDS: DICLOFENAC SODIUM 75 MG TABLET PO SCH ×2 (09:05→22:10)
[2019-10-07] MEDS: BUTALBITAL/ACETAMIN/CAFFEINE 50-325-40 MG TABLET PO PRN (16:20)
[2019-10-07] MEDS: methylPREDNISolone SOD SUC 40 MG/1 ML VIAL IV SCH ×2 (16:21→22:34)
[2019-10-07] MEDS: COLESTIPOL 1 GM TABLET PO SCH (20:58)
[2019-10-07] MEDS: traZODone 50 MG TABLET PO SCH (20:58)
[2019-10-07] MEDS: rOPINIRole 4 MG TABLET PO SCH (20:59)
[2019-10-07] MEDS: rOPINIRole 1 MG TABLET PO SCH (20:59)
[2019-10-07] MEDS: SERTRALINE 100 MG TABLET PO SCH (20:59)
[2019-10-07] MEDS ORDERED: INSULIN GLARGINE 100 UNIT/ML SUBCUT SCH (21:00)
[2019-10-07] MEDS: LEVOFLOXACIN INJ 750 MG in PREMIX 1 EACH IV SCH (21:00)
[2019-10-08] MEDS: ALBUTEROL INHALER 18 GM INH SCH ×4 (01:09→18:26)
[2019-10-08] MEDS: ONDANSETRON 4 MG/2 ML VIAL IV PRN (02:28)
[2019-10-08 06:17] LABS: Basophils % 0.3 % (0.0-0.8); Hematocrit 27.6 VOL% (35.7-47.0); Hemoglobin 8.1 GM/DL (12.0-16.0); Immature Granulocytes % 0.6 %; Immature Granulocytes Absolute 0.02 #; Lymphocytes # 0.6 10*3/uL (1.4-4.0); Lymphocytes % 16.9 % (21.3-54.2); Mean Corpuscular HGB Conc 29.3 GM/DL (32-36); Mean Corpuscular Volume 80.2 FL (87-102); Mean Platelet Volume 9.9 FL (9.6-12.0); Monocytes % 0.8 % (1.7-12.7); Neutrophils % 81.4 % (38.7-73.9); Platelet Count 88 T/CUMM (130-400); Red Blood Count 3.44 MC/CUMM (3.8-5.5); White Blood Count 3.6 T/CUMM (4-12)
[2019-10-08 06:41] LABS: Calcium 8.3 MG/DL (8.5-10.1); Osmolality,Calculated 284.1 MOS/KG (273-304)
[2019-10-08] MEDS: EZETIMIBE 10 MG TABLET PO SCH (08:20)
[2019-10-08] MEDS: LACTULOSE 20 GM/30 ML UDCUP PO SCH ×2 (08:20→21:42)
[2019-10-08] MEDS: INSULIN REGULAR 100 UNIT/ML SUBCUT SCH ×4 (08:20→21:46)
[2019-10-08] MEDS: POTASSIUM GLUCONATE 500 MG TABLET PO SCH (08:20)
[2019-10-08] MEDS: RIFAXIMIN 550 MG TABLET PO SCH ×2 (08:20→21:43)
[2019-10-08] MEDS: DICLOFENAC SODIUM 75 MG TABLET PO SCH ×2 (08:20→21:43)
[2019-10-08] MEDS: COLESTIPOL 1 GM TABLET PO SCH ×2 (08:20→21:44)
[2019-10-08] MEDS: ASPIRIN 325 MG TABLET PO SCH (08:20)
[2019-10-08] MEDS: CETIRIZINE 10 MG TABLET PO SCH (08:20)
[2019-10-08] MEDS: CHOLECALCIFEROL 5,000 UNIT TABLET PO SCH (08:20)
[2019-10-08] MEDS: GABAPENTIN 600 MG TABLET PO SCH ×2 (08:20→21:43)
[2019-10-08] MEDS: metOLazone 5 MG TABLET PO SCH (08:20)
[2019-10-08] MEDS: busPIRone 10 MG TABLET PO SCH ×3 (08:20→21:43)
[2019-10-08] MEDS: methylPREDNISolone SOD SUC 40 MG/1 ML VIAL IV SCH ×3 (08:20→23:17)
[2019-10-08] MEDS: LEVOTHYROXINE 75 MCG TABLET PO SCH (08:20)
[2019-10-08] MEDS: BUTALBITAL/ACETAMIN/CAFFEINE 50-325-40 MG TABLET PO PRN (08:20)
[2019-10-08] MEDS: PANTOPRAZOLE 40 MG TABLET PO SCH (08:20)
[2019-10-08] MEDS: FUROSEMIDE 40 MG/4 ML VIAL IV SCH ×2 (08:22→16:34)
[2019-10-08 11:26] LABS: Atypical Lymphocytes Few; Hypochromasia 4+; Lymphocytes 10 % (20-55); Schistocytes Few; Segmented Neutrophils 90 % (50-85); Stomatocytes Slight; Total Cells Counted 100
[2019-10-08 11:27] LABS: Platelet Estimate Decreased; Spherocytes Slight
[2019-10-08] MEDS: hydrOXYzine HCL 25 MG TABLET PO PRN (11:40)
[2019-10-08] MEDS: INSULIN LISPRO 100 UNIT/ML SUBCUT SCH ×2 (11:40→16:34)
[2019-10-08] MEDS: HYOSCYAMINE 0.125 MG TABLET PO PRN (16:34)
[2019-10-08] MEDS ORDERED: INSULIN GLARGINE 100 UNIT/ML SUBCUT SCH (21:00)
[2019-10-08] MEDS: traZODone 50 MG TABLET PO SCH (21:43)
[2019-10-08] MEDS: rOPINIRole 1 MG TABLET PO SCH (21:43)
[2019-10-08] MEDS: LEVOFLOXACIN INJ 750 MG in PREMIX 1 EACH IV SCH (21:44)
[2019-10-08] MEDS: SERTRALINE 100 MG TABLET PO SCH (21:44)
[2019-10-08] MEDS: rOPINIRole 4 MG TABLET PO SCH (21:44)
[2019-10-09] MEDS: ALBUTEROL INHALER 18 GM INH SCH ×4 (00:37→18:49)
[2019-10-09 04:14] LABS: Basophils % 0.1 % (0.0-0.8); Hematocrit 26.6 VOL% (35.7-47.0); Hemoglobin 8.1 GM/DL (12.0-16.0); Immature Granulocytes % 0.5 %; Immature Granulocytes Absolute 0.04 #; Lymphocytes # 0.6 10*3/uL (1.4-4.0); Lymphocytes % 8.5 % (21.3-54.2); Mean Corpuscular HGB Conc 30.5 GM/DL (32-36); Mean Corpuscular Volume 77.8 FL (87-102); Mean Platelet Volume 10.1 FL (9.6-12.0); Monocytes % 1.8 % (1.7-12.7); Neutrophils % 89.1 % (38.7-73.9); Platelet Count 85 T/CUMM (130-400); Red Blood Count 3.42 MC/CUMM (3.8-5.5); Red Cell Distribution Width 23.6 % (9.3-17.3); White Blood Count 7.3 T/CUMM (4-12)
[2019-10-09 04:29] LABS: Calcium 8.2 MG/DL (8.5-10.1); Osmolality,Calculated 281.4 MOS/KG (273-304)
[2019-10-09] MEDS: hydrOXYzine HCL 25 MG TABLET PO PRN ×2 (06:54→21:33)
[2019-10-09] MEDS: INSULIN REGULAR 100 UNIT/ML SUBCUT SCH ×4 (10:04→21:25)
[2019-10-09] MEDS: methylPREDNISolone SOD SUC 40 MG/1 ML VIAL IV SCH ×2 (10:07→21:28)
[2019-10-09] MEDS: INSULIN LISPRO 100 UNIT/ML SUBCUT SCH ×3 (10:07→17:02)
[2019-10-09] MEDS: FUROSEMIDE 40 MG/4 ML VIAL IV SCH ×2 (10:08→16:50)
[2019-10-09] MEDS: LACTULOSE 20 GM/30 ML UDCUP PO SCH ×2 (10:09→21:32)
[2019-10-09] MEDS: PANTOPRAZOLE 40 MG TABLET PO SCH (10:09)
[2019-10-09] MEDS: COLESTIPOL 1 GM TABLET PO SCH ×2 (10:09→21:32)
[2019-10-09] MEDS: ASPIRIN 325 MG TABLET PO SCH (10:09)
[2019-10-09] MEDS: busPIRone 10 MG TABLET PO SCH ×3 (10:09→21:35)
[2019-10-09] MEDS: POTASSIUM GLUCONATE 500 MG TABLET PO SCH (10:09)
[2019-10-09] MEDS: LEVOTHYROXINE 75 MCG TABLET PO SCH (10:09)
[2019-10-09] MEDS: GABAPENTIN 600 MG TABLET PO SCH ×2 (10:09→21:35)
[2019-10-09] MEDS: CETIRIZINE 10 MG TABLET PO SCH (10:10)
[2019-10-09] MEDS: EZETIMIBE 10 MG TABLET PO SCH (10:10)
[2019-10-09] MEDS: metOLazone 5 MG TABLET PO SCH (10:10)
[2019-10-09] MEDS: RIFAXIMIN 550 MG TABLET PO SCH ×2 (10:10→21:36)
[2019-10-09] MEDS: CHOLECALCIFEROL 5,000 UNIT TABLET PO SCH (10:10)
[2019-10-09] MEDS: HYOSCYAMINE 0.125 MG TABLET PO PRN (10:11)
[2019-10-09] MEDS: ONDANSETRON 4 MG/2 ML VIAL IV PRN (10:11)
[2019-10-09] MEDS: DICLOFENAC SODIUM 75 MG TABLET PO SCH ×2 (10:13→21:35)
[2019-10-09] MEDS: NYSTATIN 500,000 UNIT/5 ML UDCUP SWISH/SWAL SCH ×2 (17:02→21:32)
[2019-10-09] MEDS ORDERED: INSULIN REGULAR 100 UNIT/ML IV ONE (18:28)
[2019-10-09] MEDS: LEVOFLOXACIN INJ 750 MG in PREMIX 1 EACH IV SCH (21:20)
[2019-10-09] MEDS: INSULIN GLARGINE 100 UNIT/ML SUBCUT SCH (21:27)
[2019-10-09] MEDS: SERTRALINE 100 MG TABLET PO SCH (21:33)
[2019-10-09] MEDS: traZODone 50 MG TABLET PO SCH (21:34)
[2019-10-09] MEDS: rOPINIRole 1 MG TABLET PO SCH (21:35)
[2019-10-09] MEDS: MELATONIN 3 MG TABLET PO SCH (21:35)
[2019-10-09] MEDS: rOPINIRole 4 MG TABLET PO SCH (21:35)
[2019-10-10] MEDS: ALBUTEROL INHALER 18 GM INH SCH ×4 (01:18→22:59)
[2019-10-10 05:51] LABS: Eosinophils % 0.1 % (0.00-10.9); Hematocrit 27.9 VOL% (35.7-47.0); Hemoglobin 8.4 GM/DL (12.0-16.0); Immature Granulocytes % 0.4 %; Immature Granulocytes Absolute 0.03 #; Lymphocytes # 0.9 10*3/uL (1.4-4.0); Lymphocytes % 11.8 % (21.3-54.2); Mean Corpuscular HGB Conc 30.1 GM/DL (32-36); Mean Corpuscular Volume 77.9 FL (87-102); Mean Platelet Volume 10.5 FL (9.6-12.0); Monocytes % 2.5 % (1.7-12.7); Neutrophils % 85.2 % (38.7-73.9); Platelet Count 83 T/CUMM (130-400); Red Blood Count 3.58 MC/CUMM (3.8-5.5); Red Cell Distribution Width 23.7 % (9.3-17.3); White Blood Count 7.2 T/CUMM (4-12)
[2019-10-10 06:09] LABS: % Iron Saturation 3.2 % (18-50); Calcium 8.2 MG/DL (8.5-10.1); Osmolality,Calculated 278.4 MOS/KG (273-304)
[2019-10-10 06:25] LABS: Band Neutrophils 1 % (0-10); Lymphocytes 4 % (20-55); Segmented Neutrophils 93 % (50-85); Total Cells Counted 100
[2019-10-10 06:26] LABS: Anisocytosis 1+; Hypochromasia 2+; Microcytosis 1+; Platelet Estimate Decreased
[2019-10-10 06:38] LABS: Folate 10.3 NG/ML (5.4-24.0); Vitamin B12 1112 PG/ML (211-911)
[2019-10-10] MEDS: ACETAMINOPHEN 325 MG TABLET PO PRN (06:56)
[2019-10-10] MEDS: ALBUTEROL/IPRATROPIUM 3 ML NEB RESP TX SCH ×2 (07:01→07:24)
[2019-10-10 07:46] LABS: Sedimentation Rate-Westergren 38 MM/HR (0-30)
[2019-10-10] MEDS: NYSTATIN 500,000 UNIT/5 ML UDCUP SWISH/SWAL SCH ×4 (08:13→22:58)
[2019-10-10] MEDS: POTASSIUM GLUCONATE 500 MG TABLET PO SCH (08:13)
[2019-10-10] MEDS: ASPIRIN 325 MG TABLET PO SCH (08:13)
[2019-10-10] MEDS: GABAPENTIN 600 MG TABLET PO SCH ×2 (08:13→22:57)
[2019-10-10] MEDS: metOLazone 5 MG TABLET PO SCH (08:13)
[2019-10-10] MEDS: COLESTIPOL 1 GM TABLET PO SCH ×2 (08:13→22:57)
[2019-10-10] MEDS: RIFAXIMIN 550 MG TABLET PO SCH ×2 (08:13→22:56)
[2019-10-10] MEDS: DICLOFENAC SODIUM 75 MG TABLET PO SCH ×2 (08:13→22:56)
[2019-10-10] MEDS: busPIRone 10 MG TABLET PO SCH ×3 (08:14→22:56)
[2019-10-10] MEDS: LEVOTHYROXINE 75 MCG TABLET PO SCH (08:14)
[2019-10-10] MEDS: CETIRIZINE 10 MG TABLET PO SCH (08:14)
[2019-10-10] MEDS: PANTOPRAZOLE 40 MG TABLET PO SCH (08:14)
[2019-10-10] MEDS: EZETIMIBE 10 MG TABLET PO SCH (08:14)
[2019-10-10] MEDS: CHOLECALCIFEROL 5,000 UNIT TABLET PO SCH (08:14)
[2019-10-10] MEDS: LACTULOSE 20 GM/30 ML UDCUP PO SCH ×2 (08:15→22:55)
[2019-10-10] MEDS: methylPREDNISolone SOD SUC 40 MG/1 ML VIAL IV SCH ×2 (08:16→22:57)
[2019-10-10] MEDS: FUROSEMIDE 40 MG/4 ML VIAL IV SCH (08:16)
[2019-10-10] MEDS: INSULIN REGULAR 100 UNIT/ML SUBCUT SCH ×4 (08:17→22:59)
[2019-10-10] MEDS: INSULIN LISPRO 100 UNIT/ML SUBCUT SCH ×3 (08:17→15:59)
[2019-10-10 10:15] LABS: Hemoglobin A1 (Alkaline) 97.8 % (96.5-98.5); Hemoglobin A2 (Alkaline) 2.2 % (1.5-3.5)
[2019-10-10] MEDS: ONDANSETRON 4 MG TABLET PO PRN (10:59)
[2019-10-10] MEDS ORDERED: IRON SUCROSE 300 MG in SODIUM CHLORIDE 0.9% 100 ML IV ONE (12:00)
[2019-10-10] MEDS: BENZONATATE 100 MG CAPSULE PO SCH ×2 (15:24→22:57)
[2019-10-10] MEDS: FUROSEMIDE 40 MG TABLET PO SCH (15:24)
[2019-10-10] MEDS: traZODone 50 MG TABLET PO SCH (22:55)
[2019-10-10] MEDS: hydrOXYzine HCL 25 MG TABLET PO PRN (22:56)
[2019-10-10] MEDS: rOPINIRole 4 MG TABLET PO SCH (22:56)
[2019-10-10] MEDS: SERTRALINE 100 MG TABLET PO SCH (22:56)
[2019-10-10] MEDS: MELATONIN 3 MG TABLET PO SCH (22:57)
[2019-10-10] MEDS: rOPINIRole 1 MG TABLET PO SCH (22:57)
[2019-10-10] MEDS: LEVOFLOXACIN INJ 750 MG in PREMIX 1 EACH IV SCH (22:58)
[2019-10-10] MEDS: INSULIN GLARGINE 100 UNIT/ML SUBCUT SCH (22:58)
[2019-10-11] MEDS: ALBUTEROL INHALER 18 GM INH SCH ×4 (02:10→19:48)
[2019-10-11 04:06] LABS: ABG Base Excess 18.9 MMOL/L (-2.5-2.5); ABG HCO3 46.4 MMOL/L (20-26); ABG Oxygen Saturation 92.2 % (95-100); ABG PH 7.434 (7.35-7.45); ABG PO2 68.9 MM HG (80-95); ABG TCO2 48.6 MMOL/L (23-27); Allen Test Positive; Pt O2 Delivery Device Venturi Mask
[2019-10-11 04:08] LABS: ABG PCO2 70.9 MM HG (35-48)
[2019-10-11 06:03] LABS: Eosinophils % 0.2 % (0.00-10.9); Hematocrit 28.1 VOL% (35.7-47.0); Hemoglobin 8.5 GM/DL (12.0-16.0); Immature Granulocytes % 1.2 %; Immature Granulocytes Absolute 0.07 #; Lymphocytes # 0.8 10*3/uL (1.4-4.0); Mean Corpuscular HGB Conc 30.2 GM/DL (32-36); Mean Corpuscular Volume 78.9 FL (87-102); Mean Platelet Volume 9.6 FL (9.6-12.0); Monocytes % 3.5 % (1.7-12.7); Neutrophils % 81.1 % (38.7-73.9); Platelet Count 83 T/CUMM (130-400); Red Blood Count 3.56 MC/CUMM (3.8-5.5); Red Cell Distribution Width 23.1 % (9.3-17.3); White Blood Count 5.9 T/CUMM (4-12)
[2019-10-11 06:32] LABS: Hypochromasia 1+; Microcytosis Slight; Platelet Estimate Decreased
[2019-10-11 06:41] LABS: Calcium 7.9 MG/DL (8.5-10.1); Osmolality,Calculated 277.5 MOS/KG (273-304)
[2019-10-11] MEDS: INSULIN REGULAR 100 UNIT/ML SUBCUT SCH ×4 (08:58→22:31)
[2019-10-11] MEDS: EZETIMIBE 10 MG TABLET PO SCH (08:59)
[2019-10-11] MEDS: INSULIN LISPRO 100 UNIT/ML SUBCUT SCH ×3 (08:59→16:23)
[2019-10-11] MEDS: POTASSIUM GLUCONATE 500 MG TABLET PO SCH (09:00)
[2019-10-11] MEDS: COLESTIPOL 1 GM TABLET PO SCH ×2 (09:00→22:28)
[2019-10-11] MEDS: BENZONATATE 100 MG CAPSULE PO SCH ×3 (09:00→22:30)
[2019-10-11] MEDS: RIFAXIMIN 550 MG TABLET PO SCH ×2 (09:00→22:29)
[2019-10-11] MEDS: ASPIRIN 325 MG TABLET PO SCH (09:00)
[2019-10-11] MEDS: LACTULOSE 20 GM/30 ML UDCUP PO SCH ×2 (09:02→22:27)
[2019-10-11] MEDS: FUROSEMIDE 40 MG TABLET PO SCH ×2 (09:03→16:23)
[2019-10-11] MEDS: NYSTATIN 500,000 UNIT/5 ML UDCUP SWISH/SWAL SCH ×4 (09:03→22:26)
[2019-10-11] MEDS: busPIRone 10 MG TABLET PO SCH ×3 (09:03→22:27)
[2019-10-11] MEDS: CETIRIZINE 10 MG TABLET PO SCH (09:04)
[2019-10-11] MEDS: metOLazone 5 MG TABLET PO SCH (09:04)
[2019-10-11] MEDS: PANTOPRAZOLE 40 MG TABLET PO SCH (09:04)
[2019-10-11] MEDS: LEVOTHYROXINE 75 MCG TABLET PO SCH (09:04)
[2019-10-11] MEDS: CHOLECALCIFEROL 5,000 UNIT TABLET PO SCH (09:05)
[2019-10-11] MEDS: DICLOFENAC SODIUM 75 MG TABLET PO SCH ×2 (09:05→22:30)
[2019-10-11] MEDS: GABAPENTIN 600 MG TABLET PO SCH ×2 (09:05→22:30)
[2019-10-11] MEDS ORDERED: AZTREONAM 500 MG in SODIUM CHLORIDE 0.9% 100 ML IV SCH (12:30)
[2019-10-11] MEDS: INSULIN GLARGINE 100 UNIT/ML SUBCUT SCH ×2 (12:37→16:24)
[2019-10-11 13:46] LABS: INR 1.3; PT Patient Result 13.3 SECS (9.8-11.9)
[2019-10-11 13:50] LABS: ABG HCO3 43.2 MMOL/L (20-26); ABG Oxygen Saturation 95.5 % (95-100); ABG PH 7.459 (7.35-7.45); ABG PO2 73.6 MM HG (80-95); ABG TCO2 42.5 MMOL/L (23-27)
[2019-10-11] MEDS: AZTREONAM 1,000 MG in SYRINGE 1 EACH IV SCH (14:23)
[2019-10-11] MEDS: FERROUS SULFATE 325 MG TABLET PO SCH (16:23)
[2019-10-11] MEDS: ALUMINUM/MAGNES/SIMETH MAX STR 30 ML UDCUP PO PRN (19:30)
[2019-10-11] MEDS: LEVOFLOXACIN INJ 750 MG in PREMIX 1 EACH IV SCH (22:18)
[2019-10-11] MEDS: hydrOXYzine HCL 25 MG TABLET PO PRN (22:27)
[2019-10-11] MEDS: MELATONIN 3 MG TABLET PO SCH (22:27)
[2019-10-11] MEDS: rOPINIRole 4 MG TABLET PO SCH (22:28)
[2019-10-11] MEDS: rOPINIRole 1 MG TABLET PO SCH (22:29)
[2019-10-11] MEDS: traZODone 50 MG TABLET PO SCH (22:29)
[2019-10-11] MEDS: SERTRALINE 100 MG TABLET PO SCH (22:30)
[2019-10-11] MEDS: methylPREDNISolone SOD SUC 40 MG/1 ML VIAL IV SCH (23:04)
[2019-10-12] MEDS: AZTREONAM 1,000 MG in SYRINGE 1 EACH IV SCH ×3 (00:43→16:15)
[2019-10-12] MEDS: ALBUTEROL INHALER 18 GM INH SCH ×3 (02:32→16:18)
[2019-10-12] MEDS: ONDANSETRON 4 MG/2 ML VIAL IV PRN ×3 (02:37→20:14)
[2019-10-12 04:54] LABS: ABG Base Excess 21.4 MMOL/L (-2.5-2.5); ABG HCO3 45.8 MMOL/L (20-26); ABG Oxygen Saturation 89.9 % (95-100); ABG PO2 60.2 MM HG (80-95); ABG TCO2 45.3 MMOL/L (23-27)
[2019-10-12 04:55] LABS: ABG PCO2 71.1 MM HG (35-48)
[2019-10-12 06:15] LABS: Basophils % 0.2 % (0.0-0.8); Eosinophils % 0.5 % (0.00-10.9); Hematocrit 30.1 VOL% (35.7-47.0); Hemoglobin 9.1 GM/DL (12.0-16.0); Immature Granulocytes % 1.4 %; Immature Granulocytes Absolute 0.09 #; Lymphocytes # 0.9 10*3/uL (1.4-4.0); Lymphocytes % 13.8 % (21.3-54.2); Mean Corpuscular HGB Conc 30.2 GM/DL (32-36); Mean Corpuscular Volume 77.6 FL (87-102); Mean Platelet Volume 10.7 FL (9.6-12.0); Monocytes % 3.5 % (1.7-12.7); Neutrophils % 80.6 % (38.7-73.9); Platelet Count 87 T/CUMM (130-400); Red Blood Count 3.88 MC/CUMM (3.8-5.5); Red Cell Distribution Width 23.5 % (9.3-17.3); White Blood Count 6.3 T/CUMM (4-12)
[2019-10-12 07:18] LABS: Albumin 2.1 G/DL (3.4-5.0); Bilirubin,Total 0.7 MG/DL (0.2-1.0); Calcium 8.5 MG/DL (8.5-10.1); Osmolality,Calculated 274.5 MOS/KG (273-304); Total Protein 6.1 G/DL (6.4-8.3)
[2019-10-12 07:31] LABS: Risk Ratio 2.4; VLDL CHOLESTEROL 18.2 MG/DL
[2019-10-12 07:33] LABS: Eosinophils 1 % (0-10); Hypochromasia 2+; Lymphocytes 7 % (20-55); Microcytosis 1+; Nucleated Red Blood Cells 1 (0-5); Ovalocytes Few; Segmented Neutrophils 89 % (50-85); Total Cells Counted 100
[2019-10-12 07:34] LABS: Platelet Estimate Decreased
[2019-10-12 09:26] LABS: Eosinophils,Pleural Fluid 3 %; Lymphocytes,Pleural Fluid 74 %; Monocytes,Pleural Fluid 7 %; Neutrophils,Pleural Fluid 16 %
[2019-10-12 09:34] LABS: RBC,Pleural Fluid 18 T/CUMM
[2019-10-12 09:52] LABS: Glucose,Pleural Fluid 221 MG/DL
[2019-10-12 10:04] LABS: LDH,Pleural Fluid 90 U/L
[2019-10-12] MEDS ORDERED: TUBERCULIN SKIN TEST 0.1 ML SYRINGE INTRADERM ONE (10:08)
[2019-10-12] MEDS: LACTULOSE 20 GM/30 ML UDCUP PO SCH ×2 (11:48→20:59)
[2019-10-12] MEDS: NYSTATIN 500,000 UNIT/5 ML UDCUP SWISH/SWAL SCH ×4 (11:49→20:59)
[2019-10-12] MEDS: GABAPENTIN 600 MG TABLET PO SCH ×2 (11:49→21:01)
[2019-10-12] MEDS: COLESTIPOL 1 GM TABLET PO SCH ×2 (11:49→20:58)
[2019-10-12] MEDS: BENZONATATE 100 MG CAPSULE PO SCH ×3 (11:50→21:01)
[2019-10-12] MEDS: metOLazone 5 MG TABLET PO SCH (11:50)
[2019-10-12] MEDS: RIFAXIMIN 550 MG TABLET PO SCH ×2 (11:50→20:59)
[2019-10-12] MEDS: ASPIRIN 325 MG TABLET PO SCH (11:50)
[2019-10-12] MEDS: busPIRone 10 MG TABLET PO SCH ×2 (11:50→16:16)
[2019-10-12] MEDS: PANTOPRAZOLE 40 MG TABLET PO SCH (11:51)
[2019-10-12] MEDS: FERROUS SULFATE 325 MG TABLET PO SCH ×2 (11:51→16:16)
[2019-10-12] MEDS: LEVOTHYROXINE 75 MCG TABLET PO SCH (11:51)
[2019-10-12] MEDS: CHOLECALCIFEROL 5,000 UNIT TABLET PO SCH (11:51)
[2019-10-12] MEDS: CETIRIZINE 10 MG TABLET PO SCH (11:51)
[2019-10-12] MEDS: FUROSEMIDE 40 MG TABLET PO SCH ×2 (11:51→16:17)
[2019-10-12] MEDS: POTASSIUM GLUCONATE 500 MG TABLET PO SCH (11:51)
[2019-10-12] MEDS: INSULIN REGULAR 100 UNIT/ML SUBCUT SCH ×4 (11:52→21:02)
[2019-10-12] MEDS: INSULIN GLARGINE 100 UNIT/ML SUBCUT SCH ×2 (11:53→16:17)
[2019-10-12] MEDS: INSULIN LISPRO 100 UNIT/ML SUBCUT SCH ×4 (11:53→16:17)
[2019-10-12] MEDS: methylPREDNISolone SOD SUC 40 MG/1 ML VIAL IV SCH ×2 (11:55→21:02)
[2019-10-12] MEDS: EZETIMIBE 10 MG TABLET PO SCH (12:04)
[2019-10-12] MEDS: DICLOFENAC SODIUM 75 MG TABLET PO SCH ×2 (12:05→20:58)
[2019-10-12] MEDS: DORNASE ALFA 2.5 MG/2.5 ML VIAL RESP TX SCH (19:09)
[2019-10-12] MEDS: ALBUTEROL/IPRATROPIUM 3 ML NEB RESP TX SCH ×2 (19:09→23:55)
[2019-10-12] MEDS: BUDESONIDE 0.5 MG/2 ML NEB RESP TX SCH (19:09)
[2019-10-12] MEDS: busPIRone 15 MG TABLET PO SCH (20:58)
[2019-10-12] MEDS: rOPINIRole 4 MG TABLET PO SCH (20:59)
[2019-10-12] MEDS: MELATONIN 3 MG TABLET PO SCH (20:59)
[2019-10-12] MEDS: SERTRALINE 100 MG TABLET PO SCH (21:00)
[2019-10-12] MEDS: traZODone 50 MG TABLET PO SCH (21:00)
[2019-10-12] MEDS: rOPINIRole 1 MG TABLET PO SCH (21:00)
[2019-10-12] MEDS: LEVOFLOXACIN INJ 750 MG in PREMIX 1 EACH IV SCH (21:03)
[2019-10-12] MEDS: hydrOXYzine HCL 25 MG TABLET PO PRN (23:43)
[2019-10-12] MEDS: HYOSCYAMINE 0.125 MG TABLET PO PRN (23:44)
[2019-10-13] MEDS: AZTREONAM 1,000 MG in SYRINGE 1 EACH IV SCH ×3 (01:02→17:33)
[2019-10-13] MEDS: ALBUTEROL/IPRATROPIUM 3 ML NEB RESP TX SCH ×5 (03:12→19:26)
[2019-10-13 04:54] LABS: ABG Oxygen Saturation 87.8 % (95-100); ABG PH 7.429 (7.35-7.45); ABG PO2 57.5 MM HG (80-95); ABG TCO2 43.2 MMOL/L (23-27); Allen Test Positive
[2019-10-13 05:01] LABS: Basophils % 0.1 % (0.0-0.8); Hematocrit 29.3 VOL% (35.7-47.0); Hemoglobin 8.9 GM/DL (12.0-16.0); Immature Granulocytes % 1.5 %; Immature Granulocytes Absolute 0.11 #; Lymphocytes # 0.9 10*3/uL (1.4-4.0); Lymphocytes % 12.4 % (21.3-54.2); Mean Corpuscular HGB Conc 30.4 GM/DL (32-36); Mean Corpuscular Volume 78.6 FL (87-102); Mean Platelet Volume 10.4 FL (9.6-12.0); Monocytes % 4.5 % (1.7-12.7); Neutrophils % 81.5 % (38.7-73.9); Red Blood Count 3.73 MC/CUMM (3.8-5.5); Red Cell Distribution Width 23.4 % (9.3-17.3); White Blood Count 7.2 T/CUMM (4-12)
[2019-10-13 05:03] LABS: Platelet Count 83 T/CUMM (130-400)
[2019-10-13 05:06] LABS: ABG PCO2 70.8 MM HG (35-48)
[2019-10-13 05:15] LABS: Osmolality,Calculated 275.8 MOS/KG (273-304)
[2019-10-13 05:38] LABS: Hypochromasia 2+; Microcytosis 1+; Ovalocytes Slight; Platelet Estimate Decreased
[2019-10-13] MEDS: BUDESONIDE 0.5 MG/2 ML NEB RESP TX SCH ×2 (07:09→19:26)
[2019-10-13] MEDS: DORNASE ALFA 2.5 MG/2.5 ML VIAL RESP TX SCH ×2 (07:19→19:38)
[2019-10-13] MEDS: LACTULOSE 20 GM/30 ML UDCUP PO SCH ×2 (10:33→22:28)
[2019-10-13] MEDS: RIFAXIMIN 550 MG TABLET PO SCH ×2 (10:34→22:24)
[2019-10-13] MEDS: CHOLECALCIFEROL 5,000 UNIT TABLET PO SCH (10:34)
[2019-10-13] MEDS: POTASSIUM GLUCONATE 500 MG TABLET PO SCH (10:34)
[2019-10-13] MEDS: EZETIMIBE 10 MG TABLET PO SCH (10:35)
[2019-10-13] MEDS: COLESTIPOL 1 GM TABLET PO SCH ×2 (10:35→22:22)
[2019-10-13] MEDS: busPIRone 15 MG TABLET PO SCH ×3 (10:36→22:23)
[2019-10-13] MEDS: FERROUS SULFATE 325 MG TABLET PO SCH ×2 (10:36→17:23)
[2019-10-13] MEDS: metOLazone 5 MG TABLET PO SCH (10:36)
[2019-10-13] MEDS: LEVOTHYROXINE 75 MCG TABLET PO SCH (10:37)
[2019-10-13] MEDS: DICLOFENAC SODIUM 75 MG TABLET PO SCH ×2 (10:37→22:24)
[2019-10-13] MEDS: NYSTATIN 500,000 UNIT/5 ML UDCUP SWISH/SWAL SCH ×4 (10:38→22:25)
[2019-10-13] MEDS: PANTOPRAZOLE 40 MG TABLET PO SCH (10:38)
[2019-10-13] MEDS: GABAPENTIN 600 MG TABLET PO SCH ×2 (10:38→22:25)
[2019-10-13] MEDS: BENZONATATE 100 MG CAPSULE PO SCH ×3 (10:38→22:24)
[2019-10-13] MEDS: methylPREDNISolone SOD SUC 40 MG/1 ML VIAL IV SCH ×2 (10:39→22:27)
[2019-10-13] MEDS: ASPIRIN 325 MG TABLET PO SCH (10:41)
[2019-10-13] MEDS: ONDANSETRON 4 MG/2 ML VIAL IV PRN ×2 (10:41→23:14)
[2019-10-13] MEDS: INSULIN LISPRO 100 UNIT/ML SUBCUT SCH ×3 (10:42→17:24)
[2019-10-13] MEDS: INSULIN REGULAR 100 UNIT/ML SUBCUT SCH ×4 (10:44→22:26)
[2019-10-13] MEDS: INSULIN GLARGINE 100 UNIT/ML SUBCUT SCH ×2 (10:45→17:24)
[2019-10-13] MEDS: CETIRIZINE 10 MG TABLET PO SCH (10:46)
[2019-10-13] MEDS: FUROSEMIDE 40 MG TABLET PO SCH ×2 (10:46→17:23)
[2019-10-13] MEDS ORDERED: IRON SUCROSE 300 MG in SODIUM CHLORIDE 0.9% 100 ML IV ONE (13:00)
[2019-10-13] MEDS: metroNIDAZOLE INJ 500 MG in PREMIX 1 EACH IV SCH (17:24)
[2019-10-13] MEDS: rOPINIRole 4 MG TABLET PO SCH (22:23)
[2019-10-13] MEDS: rOPINIRole 1 MG TABLET PO SCH (22:23)
[2019-10-13] MEDS: traZODone 50 MG TABLET PO SCH (22:23)
[2019-10-13] MEDS: MELATONIN 3 MG TABLET PO SCH (22:24)
[2019-10-13] MEDS: RIVAROXABAN 10 MG TABLET PO SCH (22:24)
[2019-10-13] MEDS: SERTRALINE 100 MG TABLET PO SCH (22:25)
[2019-10-13] MEDS: LEVOFLOXACIN INJ 750 MG in PREMIX 1 EACH IV SCH (22:26)
[2019-10-14] MEDS: ALBUTEROL/IPRATROPIUM 3 ML NEB RESP TX SCH ×6 (00:05→19:35)
[2019-10-14] MEDS: metroNIDAZOLE INJ 500 MG in PREMIX 1 EACH IV SCH ×4 (00:37→18:01)
[2019-10-14] MEDS: AZTREONAM 2,000 MG in SYRINGE 1 EACH IV SCH ×3 (03:35→17:58)
[2019-10-14 05:15] LABS: ABG Base Excess 18.8 MMOL/L (-2.5-2.5); ABG HCO3 42.9 MMOL/L (20-26); ABG PH 7.425 (7.35-7.45); ABG PO2 62.5 MM HG (80-95); ABG TCO2 43.1 MMOL/L (23-27); Allen Test Positive
[2019-10-14 05:18] LABS: ABG PCO2 70.9 MM HG (35-48)
[2019-10-14] MEDS: ONDANSETRON 4 MG/2 ML VIAL IV PRN ×3 (06:41→22:28)
[2019-10-14] MEDS: BUDESONIDE 0.5 MG/2 ML NEB RESP TX SCH ×2 (07:55→19:35)
[2019-10-14] MEDS: DORNASE ALFA 2.5 MG/2.5 ML VIAL RESP TX SCH ×2 (08:05→19:47)
[2019-10-14] MEDS: INSULIN REGULAR 100 UNIT/ML SUBCUT SCH ×4 (08:20→22:30)
[2019-10-14] MEDS: INSULIN LISPRO 100 UNIT/ML SUBCUT SCH ×3 (09:20→17:57)
[2019-10-14] MEDS: COLESTIPOL 1 GM TABLET PO SCH ×2 (10:05→22:21)
[2019-10-14] MEDS: POTASSIUM GLUCONATE 500 MG TABLET PO SCH (10:06)
[2019-10-14] MEDS: ACETAMINOPHEN 325 MG TABLET PO PRN ×2 (10:06→17:56)
[2019-10-14] MEDS: metOLazone 5 MG TABLET PO SCH (10:06)
[2019-10-14] MEDS: GABAPENTIN 600 MG TABLET PO SCH ×2 (10:06→22:24)
[2019-10-14] MEDS: BENZONATATE 100 MG CAPSULE PO SCH ×3 (10:06→22:25)
[2019-10-14] MEDS: RIFAXIMIN 550 MG TABLET PO SCH ×2 (10:06→22:21)
[2019-10-14] MEDS: LEVOTHYROXINE 75 MCG TABLET PO SCH (10:06)
[2019-10-14] MEDS: CHOLECALCIFEROL 5,000 UNIT TABLET PO SCH (10:07)
[2019-10-14] MEDS: CETIRIZINE 10 MG TABLET PO SCH (10:07)
[2019-10-14] MEDS: DICLOFENAC SODIUM 75 MG TABLET PO SCH ×2 (10:07→22:26)
[2019-10-14] MEDS: EZETIMIBE 10 MG TABLET PO SCH (10:07)
[2019-10-14] MEDS: LACTULOSE 20 GM/30 ML UDCUP PO SCH ×2 (10:07→22:28)
[2019-10-14] MEDS: ASPIRIN 325 MG TABLET PO SCH (10:07)
[2019-10-14] MEDS: PANTOPRAZOLE 40 MG TABLET PO SCH (10:07)
[2019-10-14] MEDS: busPIRone 15 MG TABLET PO SCH ×3 (10:07→22:24)
[2019-10-14] MEDS: FUROSEMIDE 40 MG TABLET PO SCH ×2 (10:07→15:47)
[2019-10-14] MEDS: FERROUS SULFATE 325 MG TABLET PO SCH ×2 (10:07→17:57)
[2019-10-14] MEDS: INSULIN GLARGINE 100 UNIT/ML SUBCUT SCH ×2 (10:08→17:57)
[2019-10-14] MEDS: NYSTATIN 500,000 UNIT/5 ML UDCUP SWISH/SWAL SCH ×4 (10:12→22:20)
[2019-10-14] MEDS: methylPREDNISolone SOD SUC 40 MG/1 ML VIAL IV SCH ×2 (10:13→22:29)
[2019-10-14] MEDS: LEVOFLOXACIN INJ 750 MG in PREMIX 1 EACH IV SCH (22:18)
[2019-10-14] MEDS: rOPINIRole 1 MG TABLET PO SCH (22:21)
[2019-10-14] MEDS: traZODone 50 MG TABLET PO SCH (22:22)
[2019-10-14] MEDS: MELATONIN 3 MG TABLET PO SCH (22:23)
[2019-10-14] MEDS: hydrOXYzine HCL 25 MG TABLET PO PRN (22:23)
[2019-10-14] MEDS: SERTRALINE 100 MG TABLET PO SCH (22:24)
[2019-10-14] MEDS: rOPINIRole 4 MG TABLET PO SCH (22:24)
[2019-10-14] MEDS: RIVAROXABAN 10 MG TABLET PO SCH (22:25)
[2019-10-15] MEDS: metroNIDAZOLE INJ 500 MG in PREMIX 1 EACH IV SCH ×4 (00:59→18:39)
[2019-10-15] MEDS: ALBUTEROL/IPRATROPIUM 3 ML NEB RESP TX SCH ×7 (02:50→23:18)
[2019-10-15] MEDS: AZTREONAM 2,000 MG in SYRINGE 1 EACH IV SCH ×3 (02:59→17:27)
[2019-10-15 06:08] LABS: Basophils % 0.1 % (0.0-0.8); Eosinophils % 0.4 % (0.00-10.9); Hematocrit 29.3 VOL% (35.7-47.0); Hemoglobin 8.8 GM/DL (12.0-16.0); Immature Granulocytes % 2.7 %; Immature Granulocytes Absolute 0.28 #; Lymphocytes # 1.1 10*3/uL (1.4-4.0); Lymphocytes % 10.9 % (21.3-54.2); Mean Corpuscular Volume 79.8 FL (87-102); Mean Platelet Volume 10.4 FL (9.6-12.0); Monocytes % 3.8 % (1.7-12.7); Neutrophils % 82.1 % (38.7-73.9); Platelet Count 92 T/CUMM (130-400); Red Blood Count 3.67 MC/CUMM (3.8-5.5); Red Cell Distribution Width 24.9 % (9.3-17.3); White Blood Count 10.2 T/CUMM (4-12)
[2019-10-15 06:34] LABS: Calcium 7.8 MG/DL (8.5-10.1); Osmolality,Calculated 272.7 MOS/KG (273-304)
[2019-10-15] MEDS: BUDESONIDE 0.5 MG/2 ML NEB RESP TX SCH ×2 (07:06→19:45)
[2019-10-15] MEDS: DORNASE ALFA 2.5 MG/2.5 ML VIAL RESP TX SCH ×2 (07:18→19:55)
[2019-10-15 07:58] LABS: Anisocytosis 2+; Hypochromasia 1+; Macrocytosis 2+; Platelet Estimate Decreased
[2019-10-15] MEDS: INSULIN LISPRO 100 UNIT/ML SUBCUT SCH ×3 (09:59→17:26)
[2019-10-15] MEDS: INSULIN REGULAR 100 UNIT/ML SUBCUT SCH ×4 (09:59→21:34)
[2019-10-15] MEDS: INSULIN GLARGINE 100 UNIT/ML SUBCUT SCH ×2 (09:59→17:27)
[2019-10-15] MEDS: EZETIMIBE 10 MG TABLET PO SCH (10:00)
[2019-10-15] MEDS: FUROSEMIDE 40 MG TABLET PO SCH ×2 (10:00→15:17)
[2019-10-15] MEDS: PANTOPRAZOLE 40 MG TABLET PO SCH (10:00)
[2019-10-15] MEDS: POTASSIUM GLUCONATE 500 MG TABLET PO SCH (10:00)
[2019-10-15] MEDS: RIFAXIMIN 550 MG TABLET PO SCH ×2 (10:00→21:36)
[2019-10-15] MEDS: CHOLECALCIFEROL 5,000 UNIT TABLET PO SCH (10:00)
[2019-10-15] MEDS: metOLazone 5 MG TABLET PO SCH (10:00)
[2019-10-15] MEDS: COLESTIPOL 1 GM TABLET PO SCH ×2 (10:00→21:35)
[2019-10-15] MEDS: ASPIRIN 325 MG TABLET PO SCH (10:00)
[2019-10-15] MEDS: busPIRone 15 MG TABLET PO SCH ×3 (10:00→21:35)
[2019-10-15] MEDS: DICLOFENAC SODIUM 75 MG TABLET PO SCH ×2 (10:01→21:37)
[2019-10-15] MEDS: methylPREDNISolone SOD SUC 40 MG/1 ML VIAL IV SCH ×2 (10:01→21:33)
[2019-10-15] MEDS: LEVOTHYROXINE 75 MCG TABLET PO SCH (10:01)
[2019-10-15] MEDS: CETIRIZINE 10 MG TABLET PO SCH (10:01)
[2019-10-15] MEDS: FERROUS SULFATE 325 MG TABLET PO SCH ×2 (10:01→17:26)
[2019-10-15] MEDS: GABAPENTIN 600 MG TABLET PO SCH ×2 (10:01→21:37)
[2019-10-15] MEDS: BENZONATATE 100 MG CAPSULE PO SCH ×3 (10:01→21:36)
[2019-10-15] MEDS: NYSTATIN 500,000 UNIT/5 ML UDCUP SWISH/SWAL SCH ×4 (10:04→21:34)
[2019-10-15] MEDS: LACTULOSE 20 GM/30 ML UDCUP PO SCH ×2 (10:04→21:34)
[2019-10-15] MEDS: ONDANSETRON 4 MG TABLET PO PRN ×2 (10:21→18:38)
[2019-10-15 12:26] LABS: M. Tuberculosis PCR Result Negative (Negative); M. Tuberculosis PCR Source PLERUAL FLUID
[2019-10-15] MEDS: LEVOFLOXACIN INJ 750 MG in PREMIX 1 EACH IV SCH (21:34)
[2019-10-15] MEDS: rOPINIRole 1 MG TABLET PO SCH (21:35)
[2019-10-15] MEDS: MELATONIN 3 MG TABLET PO SCH (21:35)
[2019-10-15] MEDS: SERTRALINE 100 MG TABLET PO SCH (21:35)
[2019-10-15] MEDS: rOPINIRole 4 MG TABLET PO SCH (21:36)
[2019-10-15] MEDS: ACETAMINOPHEN 325 MG TABLET PO PRN (21:36)
[2019-10-15] MEDS: SPIRONOLACTONE 25 MG TABLET PO SCH (21:37)
[2019-10-15] MEDS: traZODone 50 MG TABLET PO SCH (21:37)
[2019-10-15] MEDS: RIVAROXABAN 10 MG TABLET PO SCH (21:37)
[2019-10-15] MEDS: ONDANSETRON 4 MG/2 ML VIAL IV PRN (22:02)
[2019-10-16] MEDS: metroNIDAZOLE INJ 500 MG in PREMIX 1 EACH IV SCH ×4 (00:51→18:20)
[2019-10-16] MEDS: ALBUTEROL/IPRATROPIUM 3 ML NEB RESP TX SCH ×6 (02:29→23:12)
[2019-10-16] MEDS: AZTREONAM 2,000 MG in SYRINGE 1 EACH IV SCH ×3 (02:34→17:34)
[2019-10-16 06:03] LABS: Basophils % 0.1 % (0.0-0.8); Eosinophils % 0.2 % (0.00-10.9); Hematocrit 28.2 VOL% (35.7-47.0); Hemoglobin 8.9 GM/DL (12.0-16.0); Immature Granulocytes % 3.1 %; Lymphocytes % 10.2 % (21.3-54.2); Mean Corpuscular HGB Conc 31.6 GM/DL (32-36); Mean Corpuscular Volume 77.5 FL (87-102); Mean Platelet Volume 9.6 FL (9.6-12.0); Monocytes % 4.5 % (1.7-12.7); Neutrophils % 81.9 % (38.7-73.9); Red Blood Count 3.64 MC/CUMM (3.8-5.5); Red Cell Distribution Width 25.4 % (9.3-17.3); White Blood Count 9.8 T/CUMM (4-12)
[2019-10-16 06:09] LABS: Platelet Count 87 T/CUMM (130-400)
[2019-10-16 06:30] LABS: Hypochromasia 1+; Lymphocytes 8 % (20-55); Platelet Estimate Decreased; Segmented Neutrophils 88 % (50-85); Total Cells Counted 100
[2019-10-16 06:31] LABS: Microcytosis Slight
[2019-10-16 07:16] LABS: Calcium 7.4 MG/DL (8.5-10.1); Osmolality,Calculated 270.8 MOS/KG (273-304)
[2019-10-16] MEDS: BUDESONIDE 0.5 MG/2 ML NEB RESP TX SCH ×2 (07:46→19:35)
[2019-10-16] MEDS: DORNASE ALFA 2.5 MG/2.5 ML VIAL RESP TX SCH ×2 (07:53→19:48)
[2019-10-16] MEDS: GABAPENTIN 600 MG TABLET PO SCH ×2 (09:56→21:58)
[2019-10-16] MEDS: CETIRIZINE 10 MG TABLET PO SCH (09:56)
[2019-10-16] MEDS: LEVOTHYROXINE 75 MCG TABLET PO SCH (09:57)
[2019-10-16] MEDS: EZETIMIBE 10 MG TABLET PO SCH (09:57)
[2019-10-16] MEDS: metOLazone 5 MG TABLET PO SCH (09:57)
[2019-10-16] MEDS: ASPIRIN 325 MG TABLET PO SCH (09:57)
[2019-10-16] MEDS: COLESTIPOL 1 GM TABLET PO SCH ×2 (09:57→21:55)
[2019-10-16] MEDS: FERROUS SULFATE 325 MG TABLET PO SCH ×2 (09:57→17:34)
[2019-10-16] MEDS: busPIRone 15 MG TABLET PO SCH ×3 (09:57→21:58)
[2019-10-16] MEDS: SPIRONOLACTONE 25 MG TABLET PO SCH ×2 (09:57→21:58)
[2019-10-16] MEDS: POTASSIUM GLUCONATE 500 MG TABLET PO SCH (09:57)
[2019-10-16] MEDS: RIFAXIMIN 550 MG TABLET PO SCH ×2 (10:01→21:55)
[2019-10-16] MEDS: CHOLECALCIFEROL 5,000 UNIT TABLET PO SCH (10:01)
[2019-10-16] MEDS: BENZONATATE 100 MG CAPSULE PO SCH ×3 (10:02→21:58)
[2019-10-16] MEDS: FUROSEMIDE 40 MG TABLET PO SCH ×2 (10:02→15:42)
[2019-10-16] MEDS: NYSTATIN 500,000 UNIT/5 ML UDCUP SWISH/SWAL SCH ×4 (10:02→21:54)
[2019-10-16] MEDS: PANTOPRAZOLE 40 MG TABLET PO SCH (10:02)
[2019-10-16] MEDS: LACTULOSE 20 GM/30 ML UDCUP PO SCH ×2 (10:02→21:54)
[2019-10-16] MEDS: DICLOFENAC SODIUM 75 MG TABLET PO SCH ×2 (10:03→21:58)
[2019-10-16] MEDS: INSULIN LISPRO 100 UNIT/ML SUBCUT SCH ×3 (10:03→17:35)
[2019-10-16] MEDS: INSULIN GLARGINE 100 UNIT/ML SUBCUT SCH ×2 (10:04→17:35)
[2019-10-16] MEDS: INSULIN REGULAR 100 UNIT/ML SUBCUT SCH ×4 (10:04→21:52)
[2019-10-16] MEDS: methylPREDNISolone SOD SUC 40 MG/1 ML VIAL IV SCH ×2 (10:07→21:53)
[2019-10-16] MEDS ORDERED: POTASSIUM CHLORIDE 20 MEQ TABLET PO ONE (10:16)
[2019-10-16] MEDS: ONDANSETRON 4 MG TABLET PO PRN (17:34)
[2019-10-16] MEDS: LEVOFLOXACIN INJ 750 MG in PREMIX 1 EACH IV SCH (21:52)
[2019-10-16] MEDS: traZODone 50 MG TABLET PO SCH (21:56)
[2019-10-16] MEDS: rOPINIRole 4 MG TABLET PO SCH (21:56)
[2019-10-16] MEDS: SERTRALINE 100 MG TABLET PO SCH (21:57)
[2019-10-16] MEDS: RIVAROXABAN 10 MG TABLET PO SCH (21:58)
[2019-10-16] MEDS: MELATONIN 3 MG TABLET PO SCH (21:58)
[2019-10-16] MEDS: rOPINIRole 1 MG TABLET PO SCH (21:58)
[2019-10-16] MEDS: hydrOXYzine HCL 25 MG TABLET PO PRN (21:58)
[2019-10-17] MEDS: ONDANSETRON 4 MG/2 ML VIAL IV PRN ×2 (01:27→09:44)
[2019-10-17] MEDS: metroNIDAZOLE INJ 500 MG in PREMIX 1 EACH IV SCH ×4 (02:03→19:24)
[2019-10-17] MEDS: ALBUTEROL/IPRATROPIUM 3 ML NEB RESP TX SCH ×5 (02:46→19:42)
[2019-10-17] MEDS: AZTREONAM 2,000 MG in SYRINGE 1 EACH IV SCH ×3 (04:04→19:24)
[2019-10-17 05:05] LABS: Basophils % 0.2 % (0.0-0.8); Eosinophils % 0.3 % (0.00-10.9); Hemoglobin 8.6 GM/DL (12.0-16.0); Immature Granulocytes % 3.1 %; Immature Granulocytes Absolute 0.29 #; Lymphocytes % 10.5 % (21.3-54.2); Mean Corpuscular HGB Conc 30.7 GM/DL (32-36); Mean Corpuscular Volume 79.5 FL (87-102); Mean Platelet Volume 10.3 FL (9.6-12.0); Monocytes % 4.5 % (1.7-12.7); Neutrophils % 81.4 % (38.7-73.9); Red Blood Count 3.52 MC/CUMM (3.8-5.5); White Blood Count 9.3 T/CUMM (4-12)
[2019-10-17 05:09] LABS: Platelet Count 83 T/CUMM (130-400)
[2019-10-17 05:20] LABS: Calcium 7.8 MG/DL (8.5-10.1); Osmolality,Calculated 271.9 MOS/KG (273-304)
[2019-10-17 05:23] LABS: Anisocytosis Slight; Hypochromasia 1+
[2019-10-17 05:24] LABS: Microcytosis Slight; Platelet Estimate Decreased
[2019-10-17] MEDS: BUDESONIDE 0.5 MG/2 ML NEB RESP TX SCH ×2 (08:15→19:42)
[2019-10-17] MEDS: DORNASE ALFA 2.5 MG/2.5 ML VIAL RESP TX SCH ×2 (08:25→19:42)
[2019-10-17 09:00] LABS: Adenosine Deaminase Pleural Fl < 1.6 U/L (0.0 - 9.4); Source PLEURAL FLUID
[2019-10-17] MEDS: INSULIN GLARGINE 100 UNIT/ML SUBCUT SCH ×3 (09:38→16:21)
[2019-10-17] MEDS: INSULIN LISPRO 100 UNIT/ML SUBCUT SCH ×3 (09:39→16:09)
[2019-10-17] MEDS: INSULIN REGULAR 100 UNIT/ML SUBCUT SCH ×5 (09:40→20:39)
[2019-10-17] MEDS: FUROSEMIDE 40 MG TABLET PO SCH ×2 (09:41→16:07)
[2019-10-17] MEDS: FERROUS SULFATE 325 MG TABLET PO SCH ×2 (09:41→16:07)
[2019-10-17] MEDS: LACTULOSE 20 GM/30 ML UDCUP PO SCH ×2 (09:41→20:38)
[2019-10-17] MEDS: ASPIRIN 325 MG TABLET PO SCH (09:41)
[2019-10-17] MEDS: ACETAMINOPHEN 325 MG TABLET PO PRN (09:42)
[2019-10-17] MEDS: busPIRone 15 MG TABLET PO SCH ×3 (09:43→20:42)
[2019-10-17] MEDS: LEVOTHYROXINE 75 MCG TABLET PO SCH (09:43)
[2019-10-17] MEDS: COLESTIPOL 1 GM TABLET PO SCH ×2 (09:43→20:41)
[2019-10-17] MEDS: BENZONATATE 100 MG CAPSULE PO SCH ×3 (09:43→20:42)
[2019-10-17] MEDS: RIFAXIMIN 550 MG TABLET PO SCH ×2 (09:43→20:41)
[2019-10-17] MEDS: POTASSIUM GLUCONATE 500 MG TABLET PO SCH (09:43)
[2019-10-17] MEDS: SPIRONOLACTONE 25 MG TABLET PO SCH (09:43)
[2019-10-17] MEDS: NYSTATIN 500,000 UNIT/5 ML UDCUP SWISH/SWAL SCH ×4 (09:44→20:38)
[2019-10-17] MEDS: methylPREDNISolone SOD SUC 40 MG/1 ML VIAL IV SCH ×2 (09:44→20:38)
[2019-10-17] MEDS: EZETIMIBE 10 MG TABLET PO SCH (09:44)
[2019-10-17] MEDS: DICLOFENAC SODIUM 75 MG TABLET PO SCH ×2 (09:44→20:43)
[2019-10-17] MEDS: CETIRIZINE 10 MG TABLET PO SCH (09:44)
[2019-10-17] MEDS: PANTOPRAZOLE 40 MG TABLET PO SCH (09:44)
[2019-10-17] MEDS: metOLazone 5 MG TABLET PO SCH (09:45)
[2019-10-17] MEDS: GABAPENTIN 600 MG TABLET PO SCH ×2 (09:45→20:43)
[2019-10-17] MEDS: CHOLECALCIFEROL 5,000 UNIT TABLET PO SCH (09:45)
[2019-10-17] MEDS: ONDANSETRON 4 MG TABLET PO PRN (18:59)
[2019-10-17] MEDS: LEVOFLOXACIN INJ 750 MG in PREMIX 1 EACH IV SCH (20:40)
[2019-10-17] MEDS: rOPINIRole 4 MG TABLET PO SCH (20:41)
[2019-10-17] MEDS: rOPINIRole 1 MG TABLET PO SCH (20:41)
[2019-10-17] MEDS: SPIRONOLACTONE 50 MG TABLET PO SCH (20:42)
[2019-10-17] MEDS: traZODone 50 MG TABLET PO SCH (20:42)
[2019-10-17] MEDS: SERTRALINE 100 MG TABLET PO SCH (20:42)
[2019-10-17] MEDS: MELATONIN 3 MG TABLET PO SCH (20:42)
[2019-10-17] MEDS: RIVAROXABAN 10 MG TABLET PO SCH (20:43)
[2019-10-18] MEDS: ONDANSETRON 4 MG/2 ML VIAL IV PRN ×2 (00:07→09:20)
[2019-10-18] MEDS: ALBUTEROL/IPRATROPIUM 3 ML NEB RESP TX SCH ×7 (00:28→23:57)
[2019-10-18] MEDS: AZTREONAM 2,000 MG in SYRINGE 1 EACH IV SCH (03:04)
[2019-10-18] MEDS: metroNIDAZOLE INJ 500 MG in PREMIX 1 EACH IV SCH ×4 (03:05→22:59)
[2019-10-18 05:33] LABS: Basophils % 0.2 % (0.0-0.8); Eosinophils % 0.2 % (0.00-10.9); Hematocrit 29.3 VOL% (35.7-47.0); Immature Granulocytes Absolute 0.18 #; Lymphocytes # 0.9 10*3/uL (1.4-4.0); Lymphocytes % 9.4 % (21.3-54.2); Mean Corpuscular HGB Conc 30.7 GM/DL (32-36); Mean Platelet Volume 9.2 FL (9.6-12.0); Monocytes % 4.6 % (1.7-12.7); Neutrophils % 83.6 % (38.7-73.9); Red Blood Count 3.71 MC/CUMM (3.8-5.5); Red Cell Distribution Width 26.7 % (9.3-17.3); White Blood Count 9.1 T/CUMM (4-12)
[2019-10-18 05:34] LABS: Platelet Count 71 T/CUMM (130-400)
[2019-10-18 05:59] LABS: Hypochromasia 1+; Microcytosis Slight; Platelet Estimate Decreased
[2019-10-18 06:01] LABS: Osmolality,Calculated 271.1 MOS/KG (273-304)
[2019-10-18 06:03] LABS: Calcium 8.1 MG/DL (8.5-10.1); Osmolality,Calculated 266.4 MOS/KG (273-304)
[2019-10-18] MEDS: DORNASE ALFA 2.5 MG/2.5 ML VIAL RESP TX SCH ×2 (07:42→19:49)
[2019-10-18] MEDS: BUDESONIDE 0.5 MG/2 ML NEB RESP TX SCH ×2 (07:52→19:39)
[2019-10-18] MEDS: INSULIN REGULAR 100 UNIT/ML SUBCUT SCH ×4 (09:03→20:49)
[2019-10-18] MEDS ORDERED: SODIUM CHLORIDE 0.65% NASAL SPRAY 45 ML BOTTLE BOTH NARES PRN (09:54)
[2019-10-18] MEDS: CHOLECALCIFEROL 5,000 UNIT TABLET PO SCH (10:15)
[2019-10-18] MEDS: PANTOPRAZOLE 40 MG TABLET PO SCH (10:15)
[2019-10-18] MEDS: COLESTIPOL 1 GM TABLET PO SCH ×2 (10:15→20:52)
[2019-10-18] MEDS: EZETIMIBE 10 MG TABLET PO SCH (10:15)
[2019-10-18] MEDS: LACTULOSE 20 GM/30 ML UDCUP PO SCH ×2 (10:15→20:54)
[2019-10-18] MEDS: FUROSEMIDE 40 MG TABLET PO SCH ×2 (10:15→16:35)
[2019-10-18] MEDS: FERROUS SULFATE 325 MG TABLET PO SCH ×2 (10:15→16:35)
[2019-10-18] MEDS: RIFAXIMIN 550 MG TABLET PO SCH ×2 (10:15→20:53)
[2019-10-18] MEDS: methylPREDNISolone SOD SUC 40 MG/1 ML VIAL IV SCH ×2 (10:15→20:56)
[2019-10-18] MEDS: GABAPENTIN 600 MG TABLET PO SCH ×2 (10:15→20:53)
[2019-10-18] MEDS: metOLazone 5 MG TABLET PO SCH (10:15)
[2019-10-18] MEDS: DICLOFENAC SODIUM 75 MG TABLET PO SCH ×2 (10:15→20:51)
[2019-10-18] MEDS: CETIRIZINE 10 MG TABLET PO SCH (10:15)
[2019-10-18] MEDS: busPIRone 15 MG TABLET PO SCH ×3 (10:15→20:53)
[2019-10-18] MEDS: POTASSIUM GLUCONATE 500 MG TABLET PO SCH (10:15)
[2019-10-18] MEDS: BENZONATATE 100 MG CAPSULE PO SCH ×3 (10:15→20:54)
[2019-10-18] MEDS: SPIRONOLACTONE 50 MG TABLET PO SCH ×2 (10:15→20:53)
[2019-10-18] MEDS: LEVOTHYROXINE 75 MCG TABLET PO SCH (10:15)
[2019-10-18] MEDS: ASPIRIN 325 MG TABLET PO SCH (10:15)
[2019-10-18] MEDS: NYSTATIN 500,000 UNIT/5 ML UDCUP SWISH/SWAL SCH ×4 (10:15→20:54)
[2019-10-18] MEDS: INSULIN LISPRO 100 UNIT/ML SUBCUT SCH ×3 (10:19→16:30)
[2019-10-18] MEDS: INSULIN GLARGINE 100 UNIT/ML SUBCUT SCH ×2 (10:20→16:30)
[2019-10-18] MEDS: ONDANSETRON 4 MG TABLET PO PRN (11:42)
[2019-10-18] MEDS: ACETAMINOPHEN 325 MG TABLET PO PRN (14:50)
[2019-10-18] MEDS: SERTRALINE 100 MG TABLET PO SCH (20:52)
[2019-10-18] MEDS: traZODone 50 MG TABLET PO SCH (20:52)
[2019-10-18] MEDS: CYCLOBENZAPRINE 10 MG TABLET PO PRN (20:52)
[2019-10-18] MEDS: RIVAROXABAN 10 MG TABLET PO SCH (20:52)
[2019-10-18] MEDS: rOPINIRole 1 MG TABLET PO SCH (20:53)
[2019-10-18] MEDS: rOPINIRole 4 MG TABLET PO SCH (20:53)
[2019-10-18] MEDS: MELATONIN 3 MG TABLET PO SCH (20:53)
[2019-10-18] MEDS: NYSTATIN POWDER 15 GM BOTTLE TOP SCH (22:50)
[2019-10-19] MEDS: LEVOFLOXACIN INJ 750 MG in PREMIX 1 EACH IV SCH ×2 (00:02→21:13)
[2019-10-19] MEDS: metroNIDAZOLE INJ 500 MG in PREMIX 1 EACH IV SCH ×2 (01:54→09:23)
[2019-10-19] MEDS: ALBUTEROL/IPRATROPIUM 3 ML NEB RESP TX SCH ×6 (03:50→23:34)
[2019-10-19 05:40] LABS: Basophils % 0.1 % (0.0-0.8); Eosinophils % 0.3 % (0.00-10.9); Hematocrit 29.7 VOL% (35.7-47.0); Hemoglobin 9.1 GM/DL (12.0-16.0); Immature Granulocytes % 2.1 %; Immature Granulocytes Absolute 0.17 #; Lymphocytes # 0.8 10*3/uL (1.4-4.0); Lymphocytes % 10.1 % (21.3-54.2); Mean Corpuscular HGB Conc 30.6 GM/DL (32-36); Mean Corpuscular Volume 81.6 FL (87-102); Monocytes % 5.8 % (1.7-12.7); Neutrophils % 81.6 % (38.7-73.9); Red Blood Count 3.64 MC/CUMM (3.8-5.5); Red Cell Distribution Width 27.9 % (9.3-17.3); White Blood Count 7.9 T/CUMM (4-12)
[2019-10-19 05:45] LABS: Platelet Count 67 T/CUMM (130-400)
[2019-10-19 05:59] LABS: Calcium 8.4 MG/DL (8.5-10.1); Osmolality,Calculated 275.8 MOS/KG (273-304)
[2019-10-19 06:05] LABS: Hypochromasia 1+; Microcytosis Slight; Platelet Estimate Decreased
[2019-10-19] MEDS: BUDESONIDE 0.5 MG/2 ML NEB RESP TX SCH ×2 (07:20→20:06)
[2019-10-19] MEDS: DORNASE ALFA 2.5 MG/2.5 ML VIAL RESP TX SCH ×2 (07:31→20:13)
[2019-10-19] MEDS: INSULIN REGULAR 100 UNIT/ML SUBCUT SCH ×4 (09:20→22:10)
[2019-10-19] MEDS: FERROUS SULFATE 325 MG TABLET PO SCH ×2 (09:22→17:46)
[2019-10-19] MEDS: INSULIN LISPRO 100 UNIT/ML SUBCUT SCH ×3 (09:24→17:38)
[2019-10-19] MEDS: INSULIN GLARGINE 100 UNIT/ML SUBCUT SCH ×2 (09:24→17:38)
[2019-10-19] MEDS: SPIRONOLACTONE 50 MG TABLET PO SCH ×2 (09:25→21:03)
[2019-10-19] MEDS: FUROSEMIDE 40 MG TABLET PO SCH ×2 (09:25→15:00)
[2019-10-19] MEDS: LACTULOSE 20 GM/30 ML UDCUP PO SCH ×2 (09:26→21:03)
[2019-10-19] MEDS: busPIRone 15 MG TABLET PO SCH ×3 (09:26→21:02)
[2019-10-19] MEDS: ASPIRIN 325 MG TABLET PO SCH (09:26)
[2019-10-19] MEDS: NYSTATIN POWDER 15 GM BOTTLE TOP SCH ×3 (09:27→21:04)
[2019-10-19] MEDS: COLESTIPOL 1 GM TABLET PO SCH ×2 (09:27→20:59)
[2019-10-19] MEDS: NYSTATIN 500,000 UNIT/5 ML UDCUP SWISH/SWAL SCH ×4 (09:27→21:02)
[2019-10-19] MEDS: POTASSIUM GLUCONATE 500 MG TABLET PO SCH (09:28)
[2019-10-19] MEDS: PANTOPRAZOLE 40 MG TABLET PO SCH (09:28)
[2019-10-19] MEDS: GABAPENTIN 600 MG TABLET PO SCH ×2 (09:28→20:59)
[2019-10-19] MEDS: methylPREDNISolone SOD SUC 40 MG/1 ML VIAL IV SCH ×2 (09:28→21:05)
[2019-10-19] MEDS: BENZONATATE 100 MG CAPSULE PO SCH ×3 (09:29→20:58)
[2019-10-19] MEDS: LEVOTHYROXINE 75 MCG TABLET PO SCH (09:29)
[2019-10-19] MEDS: DICLOFENAC SODIUM 75 MG TABLET PO SCH ×2 (09:29→21:04)
[2019-10-19] MEDS: CHOLECALCIFEROL 5,000 UNIT TABLET PO SCH (09:29)
[2019-10-19] MEDS: ONDANSETRON 4 MG/2 ML VIAL IV PRN ×2 (09:30→14:53)
[2019-10-19] MEDS: metOLazone 5 MG TABLET PO SCH (09:30)
[2019-10-19] MEDS: EZETIMIBE 10 MG TABLET PO SCH (09:30)
[2019-10-19] MEDS: RIFAXIMIN 550 MG TABLET PO SCH ×2 (09:30→20:59)
[2019-10-19] MEDS: CETIRIZINE 10 MG TABLET PO SCH (09:30)
[2019-10-19] MEDS: traZODone 50 MG TABLET PO SCH (20:58)
[2019-10-19] MEDS: CYCLOBENZAPRINE 10 MG TABLET PO PRN (20:59)
[2019-10-19] MEDS: MELATONIN 3 MG TABLET PO SCH (20:59)
[2019-10-19] MEDS: HYOSCYAMINE 0.125 MG TABLET PO PRN (21:00)
[2019-10-19] MEDS: rOPINIRole 4 MG TABLET PO SCH (21:02)
[2019-10-19] MEDS: RIVAROXABAN 10 MG TABLET PO SCH (21:04)
[2019-10-19] MEDS: rOPINIRole 1 MG TABLET PO SCH (21:04)
[2019-10-19] MEDS: SERTRALINE 100 MG TABLET PO SCH (21:14)
[2019-10-19] MEDS: hydrOXYzine HCL 25 MG TABLET PO PRN (23:05)
[2019-10-20] MEDS: ONDANSETRON 4 MG/2 ML VIAL IV PRN ×5 (00:10→23:25)
[2019-10-20] MEDS: ALBUTEROL/IPRATROPIUM 3 ML NEB RESP TX SCH ×5 (03:47→20:05)
[2019-10-20 05:58] LABS: Basophils % 0.1 % (0.0-0.8); Eosinophils % 0.1 % (0.00-10.9); Hematocrit 33.3 VOL% (35.7-47.0); Hemoglobin 10.3 GM/DL (12.0-16.0); Immature Granulocytes % 2.3 %; Immature Granulocytes Absolute 0.33 #; Lymphocytes # 0.9 10*3/uL (1.4-4.0); Lymphocytes % 6.2 % (21.3-54.2); Mean Corpuscular HGB Conc 30.9 GM/DL (32-36); Mean Corpuscular Volume 82.2 FL (87-102); Mean Platelet Volume 9.6 FL (9.6-12.0); Monocytes % 5.2 % (1.7-12.7); Neutrophils % 86.1 % (38.7-73.9); Red Blood Count 4.05 MC/CUMM (3.8-5.5); Red Cell Distribution Width 28.9 % (9.3-17.3); White Blood Count 14.3 T/CUMM (4-12)
[2019-10-20 06:02] LABS: Platelet Count 72 T/CUMM (130-400)
[2019-10-20 06:38] LABS: Osmolality,Calculated 282.5 MOS/KG (273-304)
[2019-10-20] MEDS: BUDESONIDE 0.5 MG/2 ML NEB RESP TX SCH ×2 (07:04→20:05)
[2019-10-20] MEDS: DORNASE ALFA 2.5 MG/2.5 ML VIAL RESP TX SCH (07:04)
[2019-10-20 07:10] LABS: Anisocytosis 1+; Hypochromasia 1+; Microcytosis 1+; Ovalocytes Slight; Platelet Estimate Decreased; Target Cells Slight
[2019-10-20] MEDS: methylPREDNISolone SOD SUC 40 MG/1 ML VIAL IV SCH (09:22)
[2019-10-20] MEDS: INSULIN GLARGINE 100 UNIT/ML SUBCUT SCH ×2 (09:23→16:03)
[2019-10-20] MEDS: INSULIN LISPRO 100 UNIT/ML SUBCUT SCH ×3 (09:23→18:20)
[2019-10-20] MEDS ORDERED: ALPRAZolam 0.25 MG TABLET PO ONE (09:55)
[2019-10-20] MEDS: COLESTIPOL 1 GM TABLET PO SCH ×2 (10:26→20:18)
[2019-10-20] MEDS: CETIRIZINE 10 MG TABLET PO SCH (10:27)
[2019-10-20] MEDS: CHOLECALCIFEROL 5,000 UNIT TABLET PO SCH (10:27)
[2019-10-20] MEDS: EZETIMIBE 10 MG TABLET PO SCH (10:27)
[2019-10-20] MEDS: busPIRone 15 MG TABLET PO SCH ×3 (10:27→20:19)
[2019-10-20] MEDS: GABAPENTIN 600 MG TABLET PO SCH ×2 (10:27→20:18)
[2019-10-20] MEDS: ASPIRIN 325 MG TABLET PO SCH (10:27)
[2019-10-20] MEDS: FERROUS SULFATE 325 MG TABLET PO SCH ×2 (10:27→16:03)
[2019-10-20] MEDS: RIFAXIMIN 550 MG TABLET PO SCH ×2 (10:27→20:20)
[2019-10-20] MEDS: PANTOPRAZOLE 40 MG TABLET PO SCH (10:28)
[2019-10-20] MEDS: metOLazone 5 MG TABLET PO SCH (10:28)
[2019-10-20] MEDS: POTASSIUM GLUCONATE 500 MG TABLET PO SCH (10:28)
[2019-10-20] MEDS: SPIRONOLACTONE 50 MG TABLET PO SCH ×2 (10:29→20:18)
[2019-10-20] MEDS: BENZONATATE 100 MG CAPSULE PO SCH ×3 (10:29→20:28)
[2019-10-20] MEDS: NYSTATIN 500,000 UNIT/5 ML UDCUP SWISH/SWAL SCH ×4 (10:29→20:16)
[2019-10-20] MEDS: DICLOFENAC SODIUM 75 MG TABLET PO SCH ×2 (10:29→20:18)
[2019-10-20] MEDS: FUROSEMIDE 40 MG TABLET PO SCH ×2 (10:29→16:03)
[2019-10-20] MEDS: LACTULOSE 20 GM/30 ML UDCUP PO SCH ×2 (10:30→20:16)
[2019-10-20] MEDS: POLYETHYLENE GLYCOL POWDER 17 GM PACK PO SCH (10:30)
[2019-10-20] MEDS: NYSTATIN POWDER 15 GM BOTTLE TOP SCH ×3 (10:31→20:27)
[2019-10-20] MEDS: INSULIN REGULAR 100 UNIT/ML SUBCUT SCH ×4 (11:53→20:28)
[2019-10-20] MEDS: ONDANSETRON 4 MG TABLET PO PRN (12:29)
[2019-10-20] MEDS: rOPINIRole 4 MG TABLET PO SCH (20:17)
[2019-10-20] MEDS: SERTRALINE 100 MG TABLET PO SCH (20:19)
[2019-10-20] MEDS: traZODone 50 MG TABLET PO SCH (20:19)
[2019-10-20] MEDS: ALPRAZolam 0.25 MG TABLET PO SCH (20:19)
[2019-10-20] MEDS: RIVAROXABAN 10 MG TABLET PO SCH (20:19)
[2019-10-20] MEDS: MELATONIN 3 MG TABLET PO SCH (20:19)
[2019-10-20] MEDS: rOPINIRole 1 MG TABLET PO SCH (20:28)
[2019-10-21] MEDS: ALBUTEROL/IPRATROPIUM 3 ML NEB RESP TX SCH ×7 (01:05→19:49)
[2019-10-21] MEDS: ONDANSETRON 4 MG/2 ML VIAL IV PRN ×2 (04:23→19:34)
[2019-10-21 06:18] LABS: Red Blood Count 4.03 MC/CUMM (3.8-5.5); White Blood Count 20.3 T/CUMM (4-12)
[2019-10-21 06:19] LABS: Basophils % 0.2 % (0.0-0.8); Eosinophils # 0.2 10*3/uL (0.0-0.87); Eosinophils % 1.1 % (0.00-10.9); Hematocrit 33.5 VOL% (35.7-47.0); Hemoglobin 10.4 GM/DL (12.0-16.0); Immature Granulocytes % 2.3 %; Immature Granulocytes Absolute 0.46 #; Lymphocytes # 2.4 10*3/uL (1.4-4.0); Lymphocytes % 11.8 % (21.3-54.2); Mean Corpuscular Volume 83.1 FL (87-102); Neutrophils % 75.6 % (38.7-73.9); Platelet Count 71 T/CUMM (130-400); Red Cell Distribution Width 29.4 % (9.3-17.3)
[2019-10-21 06:39] LABS: Albumin 2.6 G/DL (3.4-5.0); Calcium 9.1 MG/DL (8.5-10.1); Osmolality,Calculated 275.7 MOS/KG (273-304); Total Protein 6.5 G/DL (6.4-8.3)
[2019-10-21 07:27] LABS: Lymphocytes 8 % (20-55); Segmented Neutrophils 87 % (50-85); Total Cells Counted 100
[2019-10-21 07:29] LABS: Ovalocytes Few; Polychromasia Slight; Target Cells Few
[2019-10-21 07:30] LABS: Hypochromasia 3+; Platelet Estimate Decreased
[2019-10-21] MEDS: INSULIN REGULAR 100 UNIT/ML SUBCUT SCH ×4 (07:30→20:59)
[2019-10-21] MEDS: INSULIN LISPRO 100 UNIT/ML SUBCUT SCH ×2 (08:00→11:46)
[2019-10-21] MEDS: INSULIN GLARGINE 100 UNIT/ML SUBCUT SCH ×2 (08:00→17:22)
[2019-10-21] MEDS: BUDESONIDE 0.5 MG/2 ML NEB RESP TX SCH ×2 (08:11→19:49)
[2019-10-21] MEDS ORDERED: DEXTROSE 50% 25 GM/50 ML VIAL IV ONE (08:18)
[2019-10-21] MEDS: FUROSEMIDE 40 MG TABLET PO SCH ×2 (09:12→15:50)
[2019-10-21] MEDS: metOLazone 5 MG TABLET PO SCH (09:13)
[2019-10-21] MEDS: predniSONE 20 MG TABLET PO SCH (10:02)
[2019-10-21] MEDS: POTASSIUM GLUCONATE 500 MG TABLET PO SCH (10:03)
[2019-10-21] MEDS: RIFAXIMIN 550 MG TABLET PO SCH ×2 (10:03→21:03)
[2019-10-21] MEDS: DICLOFENAC SODIUM 75 MG TABLET PO SCH ×2 (10:03→21:04)
[2019-10-21] MEDS: COLESTIPOL 1 GM TABLET PO SCH ×2 (10:03→21:02)
[2019-10-21] MEDS: ASPIRIN 325 MG TABLET PO SCH (10:03)
[2019-10-21] MEDS: CHOLECALCIFEROL 5,000 UNIT TABLET PO SCH (10:04)
[2019-10-21] MEDS: busPIRone 15 MG TABLET PO SCH ×3 (10:04→21:04)
[2019-10-21] MEDS: GABAPENTIN 600 MG TABLET PO SCH ×2 (10:04→21:03)
[2019-10-21] MEDS: FERROUS SULFATE 325 MG TABLET PO SCH ×2 (10:04→16:00)
[2019-10-21] MEDS: BENZONATATE 100 MG CAPSULE PO SCH ×3 (10:05→21:03)
[2019-10-21] MEDS: EZETIMIBE 10 MG TABLET PO SCH (10:06)
[2019-10-21] MEDS: NYSTATIN 500,000 UNIT/5 ML UDCUP SWISH/SWAL SCH ×4 (10:08→21:00)
[2019-10-21] MEDS: ONDANSETRON 4 MG TABLET PO PRN (10:08)
[2019-10-21] MEDS: SPIRONOLACTONE 50 MG TABLET PO SCH ×2 (10:08→21:04)
[2019-10-21] MEDS: PANTOPRAZOLE 40 MG TABLET PO SCH (10:08)
[2019-10-21] MEDS: LACTULOSE 20 GM/30 ML UDCUP PO SCH ×2 (10:09→20:59)
[2019-10-21] MEDS: NYSTATIN POWDER 15 GM BOTTLE TOP SCH ×3 (10:10→21:05)
[2019-10-21] MEDS: CETIRIZINE 10 MG TABLET PO SCH (10:10)
[2019-10-21] MEDS: POLYETHYLENE GLYCOL POWDER 17 GM PACK PO SCH (10:10)
[2019-10-21] MEDS ORDERED: POTASSIUM CHLORIDE 20 MEQ TABLET PO ONE (15:29)
[2019-10-21] MEDS: SERTRALINE 100 MG TABLET PO SCH (21:02)
[2019-10-21] MEDS: rOPINIRole 4 MG TABLET PO SCH (21:02)
[2019-10-21] MEDS: MELATONIN 3 MG TABLET PO SCH (21:02)
[2019-10-21] MEDS: rOPINIRole 1 MG TABLET PO SCH (21:02)
[2019-10-21] MEDS: ALPRAZolam 0.25 MG TABLET PO SCH (21:03)
[2019-10-21] MEDS: traZODone 50 MG TABLET PO SCH (21:04)
[2019-10-21] MEDS: RIVAROXABAN 10 MG TABLET PO SCH (21:05)
[2019-10-21] MEDS: hydrOXYzine HCL 25 MG TABLET PO PRN (22:59)
[2019-10-21] MEDS: CYCLOBENZAPRINE 10 MG TABLET PO PRN (22:59)
[2019-10-22] MEDS: ALBUTEROL/IPRATROPIUM 3 ML NEB RESP TX SCH ×7 (00:28→23:20)
[2019-10-22] MEDS: ONDANSETRON 4 MG/2 ML VIAL IV PRN ×3 (02:53→09:34)
[2019-10-22 05:19] LABS: Basophils % 0.2 % (0.0-0.8); Eosinophils # 0.2 10*3/uL (0.0-0.87); Eosinophils % 1.4 % (0.00-10.9); Hematocrit 31.3 VOL% (35.7-47.0); Hemoglobin 9.4 GM/DL (12.0-16.0); Immature Granulocytes % 1.5 %; Immature Granulocytes Absolute 0.26 #; Lymphocytes % 11.5 % (21.3-54.2); Mean Corpuscular Volume 84.1 FL (87-102); Monocytes % 9.2 % (1.7-12.7); Neutrophils % 76.2 % (38.7-73.9); Platelet Count 56 T/CUMM (130-400); Red Blood Count 3.72 MC/CUMM (3.8-5.5); Red Cell Distribution Width 29.9 % (9.3-17.3)
[2019-10-22 05:50] LABS: Albumin 2.3 G/DL (3.4-5.0); Bilirubin,Total 1.3 MG/DL (0.2-1.0); Calcium 9.1 MG/DL (8.5-10.1); Osmolality,Calculated 283.8 MOS/KG (273-304); Total Protein 5.7 G/DL (6.4-8.3)
[2019-10-22 06:17] LABS: Platelet Estimate Decreased
[2019-10-22 06:18] LABS: Anisocytosis 2+; Basophilic Stippling Slight; Polychromasia Slight; Target Cells Few
[2019-10-22 06:19] LABS: Macrocytosis 1+
[2019-10-22] MEDS: BUDESONIDE 0.5 MG/2 ML NEB RESP TX SCH ×2 (07:20→20:12)
[2019-10-22] MEDS: INSULIN REGULAR 100 UNIT/ML SUBCUT SCH ×4 (07:25→20:09)
[2019-10-22] MEDS: POLYETHYLENE GLYCOL POWDER 17 GM PACK PO SCH (09:28)
[2019-10-22] MEDS: COLESTIPOL 1 GM TABLET PO SCH ×2 (09:29→20:11)
[2019-10-22] MEDS: PANTOPRAZOLE 40 MG TABLET PO SCH (09:29)
[2019-10-22] MEDS: busPIRone 15 MG TABLET PO SCH ×3 (09:30→20:12)
[2019-10-22] MEDS: BENZONATATE 100 MG CAPSULE PO SCH ×3 (09:30→20:12)
[2019-10-22] MEDS: CHOLECALCIFEROL 5,000 UNIT TABLET PO SCH (09:30)
[2019-10-22] MEDS: SPIRONOLACTONE 50 MG TABLET PO SCH ×2 (09:30→20:11)
[2019-10-22] MEDS: ASPIRIN 325 MG TABLET PO SCH (09:30)
[2019-10-22] MEDS: POTASSIUM GLUCONATE 500 MG TABLET PO SCH (09:30)
[2019-10-22] MEDS: GABAPENTIN 600 MG TABLET PO SCH ×2 (09:30→20:11)
[2019-10-22] MEDS: metOLazone 5 MG TABLET PO SCH (09:31)
[2019-10-22] MEDS: FERROUS SULFATE 325 MG TABLET PO SCH ×2 (09:31→17:33)
[2019-10-22] MEDS: EZETIMIBE 10 MG TABLET PO SCH (09:32)
[2019-10-22] MEDS: FUROSEMIDE 40 MG TABLET PO SCH ×2 (09:32→17:33)
[2019-10-22] MEDS: predniSONE 20 MG TABLET PO SCH (09:32)
[2019-10-22] MEDS: CETIRIZINE 10 MG TABLET PO SCH (09:33)
[2019-10-22] MEDS: DICLOFENAC SODIUM 75 MG TABLET PO SCH ×2 (09:33→20:12)
[2019-10-22] MEDS: INSULIN GLARGINE 100 UNIT/ML SUBCUT SCH ×2 (09:33→17:31)
[2019-10-22] MEDS: RIFAXIMIN 550 MG TABLET PO SCH ×2 (09:33→20:11)
[2019-10-22] MEDS: LACTULOSE 20 GM/30 ML UDCUP PO SCH ×2 (09:37→20:12)
[2019-10-22] MEDS: NYSTATIN 500,000 UNIT/5 ML UDCUP SWISH/SWAL SCH ×2 (09:37→12:20)
[2019-10-22] MEDS: NYSTATIN POWDER 15 GM BOTTLE TOP SCH ×3 (09:38→20:13)
[2019-10-22] MEDS ORDERED: ALPRAZolam 0.25 MG TABLET PO PRN (09:42)
[2019-10-22] MEDS ORDERED: FUROSEMIDE 40 MG/4 ML VIAL IV ONE (09:42)
[2019-10-22] MEDS: ONDANSETRON 4 MG TABLET PO PRN ×2 (14:07→20:25)
[2019-10-22] MEDS: FLUCONAZOLE INJ 200 MG in PREMIX 1 EACH IV SCH (17:34)
[2019-10-22] MEDS: ALPRAZolam 0.5 MG TABLET PO SCH (20:09)
[2019-10-22] MEDS: rOPINIRole 4 MG TABLET PO SCH (20:11)
[2019-10-22] MEDS: SERTRALINE 100 MG TABLET PO SCH (20:11)
[2019-10-22] MEDS: RIVAROXABAN 10 MG TABLET PO SCH (20:12)
[2019-10-22] MEDS: MELATONIN 3 MG TABLET PO SCH (20:12)
[2019-10-22] MEDS: rOPINIRole 1 MG TABLET PO SCH (20:12)
[2019-10-23] MEDS: ONDANSETRON 4 MG/2 ML VIAL IV PRN ×2 (02:03→10:41)
[2019-10-23] MEDS: ALBUTEROL/IPRATROPIUM 3 ML NEB RESP TX SCH ×6 (03:25→22:48)
[2019-10-23 06:43] LABS: Basophils # 0.1 10*3/uL (0.0-0.2); Basophils % 0.3 % (0.0-0.8); Eosinophils # 0.3 10*3/uL (0.0-0.87); Eosinophils % 1.9 % (0.00-10.9); Hematocrit 30.4 VOL% (35.7-47.0); Hemoglobin 9.4 GM/DL (12.0-16.0); Immature Granulocytes % 2.2 %; Immature Granulocytes Absolute 0.39 #; Lymphocytes # 1.8 10*3/uL (1.4-4.0); Mean Corpuscular HGB Conc 30.9 GM/DL (32-36); Mean Corpuscular Volume 83.5 FL (87-102); Mean Platelet Volume 10.4 FL (9.6-12.0); Monocytes % 9.2 % (1.7-12.7); Neutrophils % 76.4 % (38.7-73.9); Platelet Count 57 T/CUMM (130-400); Red Blood Count 3.64 MC/CUMM (3.8-5.5); Red Cell Distribution Width 30.3 % (9.3-17.3); White Blood Count 17.6 T/CUMM (4-12)
[2019-10-23] MEDS: BUDESONIDE 0.5 MG/2 ML NEB RESP TX SCH ×2 (07:02→18:59)
[2019-10-23 07:22] LABS: Albumin 2.3 G/DL (3.4-5.0); Bilirubin,Total 2.6 MG/DL (0.2-1.0); Calcium 8.9 MG/DL (8.5-10.1); Osmolality,Calculated 278.1 MOS/KG (273-304); Total Protein 5.9 G/DL (6.4-8.3)
[2019-10-23] MEDS: INSULIN REGULAR 100 UNIT/ML SUBCUT SCH ×4 (07:23→22:53)
[2019-10-23 08:59] LABS: Anisocytosis 1+; Band Neutrophils 3 % (0-10); Eosinophils 2 % (0-10); Hypochromasia 1+; Lymphocytes 13 % (20-55); Platelet Estimate Decreased; Segmented Neutrophils 72 % (50-85); Smudge Cells Few; Target Cells Few; Total Cells Counted 100
[2019-10-23 09:49] LABS: Amorphous Crystals,Urine Few /HPF (Few); Apearance,Urine Slightly Hazy (Clear); Bacteria,Urine Few /HPF (Few); Bilirubin,Urine Negative (Negative); Blood, Urine Negative (Negative); Glucose,Urine (UA) Negative (Negative); Hyaline Casts,Urine 6 /LPF (0-3); Ketones,Urine Negative (Negative); Mucus,Urine Occasional /LPF (Occasional); Nitrite,Urine Negative (Negative); Protein,Urine Negative; RBC,Urine <1 /HPF (0-4); Urine Color Amber (Yellow); Urine Specific Gravity 1.015 (1.001-1.035); Urine Urobilinogen < 2.0 EU/DL (0.2-1.0)
[2019-10-23 10:18] LABS: ABG Base Excess 10.5 MMOL/L (-2.5-2.5); ABG HCO3 34.2 MMOL/L (20-26); ABG Oxygen Saturation 89.7 % (95-100); ABG PH 7.276 (7.35-7.45); ABG TCO2 37.7 MMOL/L (23-27)
[2019-10-23 10:22] LABS: ABG PCO2 86.6 MM HG (35-48)
[2019-10-23] MEDS: LACTULOSE 20 GM/30 ML UDCUP PO SCH ×2 (10:38→21:34)
[2019-10-23] MEDS: POLYETHYLENE GLYCOL POWDER 17 GM PACK PO SCH (10:38)
[2019-10-23] MEDS: INSULIN GLARGINE 100 UNIT/ML SUBCUT SCH ×2 (10:38→17:37)
[2019-10-23] MEDS: ASPIRIN 325 MG TABLET PO SCH (10:39)
[2019-10-23] MEDS: SPIRONOLACTONE 50 MG TABLET PO SCH (10:39)
[2019-10-23] MEDS: FUROSEMIDE 40 MG TABLET PO SCH ×2 (10:39→17:04)
[2019-10-23] MEDS: CETIRIZINE 10 MG TABLET PO SCH (10:39)
[2019-10-23] MEDS: EZETIMIBE 10 MG TABLET PO SCH (10:39)
[2019-10-23] MEDS: RIFAXIMIN 550 MG TABLET PO SCH ×2 (10:39→21:32)
[2019-10-23] MEDS: POTASSIUM GLUCONATE 500 MG TABLET PO SCH (10:39)
[2019-10-23] MEDS: CHOLECALCIFEROL 5,000 UNIT TABLET PO SCH (10:39)
[2019-10-23] MEDS: predniSONE 20 MG TABLET PO SCH (10:39)
[2019-10-23] MEDS: busPIRone 15 MG TABLET PO SCH ×3 (10:40→21:32)
[2019-10-23] MEDS: metOLazone 5 MG TABLET PO SCH (10:40)
[2019-10-23] MEDS: GABAPENTIN 600 MG TABLET PO SCH (10:40)
[2019-10-23] MEDS: DICLOFENAC SODIUM 75 MG TABLET PO SCH (10:40)
[2019-10-23] MEDS: PANTOPRAZOLE 40 MG TABLET PO SCH (10:40)
[2019-10-23] MEDS: FERROUS SULFATE 325 MG TABLET PO SCH ×2 (10:41→17:23)
[2019-10-23] MEDS: BENZONATATE 100 MG CAPSULE PO SCH ×3 (10:41→21:32)
[2019-10-23] MEDS: NYSTATIN POWDER 15 GM BOTTLE TOP SCH ×2 (10:42→14:26)
[2019-10-23] MEDS: COLESTIPOL 1 GM TABLET PO SCH ×2 (10:46→21:32)
[2019-10-23] MEDS: ALPRAZolam 0.5 MG TABLET PO SCH (10:46)
[2019-10-23 13:01] LABS: INR 1.8; PT Patient Result 18.8 SECS (9.8-11.9)
[2019-10-23 13:43] LABS: ABG Base Excess 11.7 MMOL/L (-2.5-2.5); ABG HCO3 35.3 MMOL/L (20-26); ABG Oxygen Saturation 85.2 % (95-100); ABG PO2 55.8 MM HG (80-95); ABG TCO2 37.9 MMOL/L (23-27); Allen Test Positive; Pt O2 Delivery Device BIPAP
[2019-10-23 13:45] LABS: ABG PCO2 78.3 MM HG (35-48)
[2019-10-23] MEDS ORDERED: SODIUM CHLORIDE 0.9% 1,000 ML IV PRN ×2 (13:50→13:51)
[2019-10-23] MEDS ORDERED: ALPRAZolam 0.5 MG TABLET PO SCH (16:56)
[2019-10-23 17:44] LABS: Lymphocytes,Pleural Fluid 67 %; Monocytes,Pleural Fluid 20 %; Neutrophils,Pleural Fluid 13 %; RBC,Pleural Fluid 71 T/CUMM
[2019-10-23 20:39] LABS: Allen Test Positive; Pt O2 Delivery Device BIPAP
[2019-10-23 20:40] LABS: ABG Base Excess 12.6 MMOL/L (-2.5-2.5); ABG HCO3 36.4 MMOL/L (20-26); ABG Oxygen Saturation 96.1 % (95-100); ABG PH 7.346 (7.35-7.45); ABG PO2 80.3 MM HG (80-95); ABG TCO2 38.3 MMOL/L (23-27)
[2019-10-23 20:43] LABS: ABG PCO2 74.2 MM HG (35-48)
[2019-10-23] MEDS: FLUCONAZOLE INJ 200 MG in PREMIX 1 EACH IV SCH (21:28)
[2019-10-23] MEDS: GABAPENTIN 300 MG CAPSULE PO SCH (21:32)
[2019-10-23] MEDS: rOPINIRole 1 MG TABLET PO SCH (21:34)
[2019-10-23] MEDS: rOPINIRole 4 MG TABLET PO SCH (21:34)
[2019-10-23] MEDS: MELATONIN 3 MG TABLET PO SCH (21:34)
[2019-10-23] MEDS: RIVAROXABAN 10 MG TABLET PO SCH (21:34)
[2019-10-23] MEDS: SERTRALINE 100 MG TABLET PO SCH (21:34)
[2019-10-24] MEDS: LACTULOSE 20 GM/30 ML UDCUP PO SCH ×3 (01:10→20:56)
[2019-10-24] MEDS: ALBUTEROL/IPRATROPIUM 3 ML NEB RESP TX SCH ×5 (02:51→19:27)
[2019-10-24 03:55] LABS: Basophils % 0.1 % (0.0-0.8); Eosinophils # 0.1 10*3/uL (0.0-0.87); Eosinophils % 0.9 % (0.00-10.9); Hematocrit 24.1 VOL% (35.7-47.0); Hemoglobin 7.5 GM/DL (12.0-16.0); Immature Granulocytes % 1.4 %; Immature Granulocytes Absolute 0.11 #; Lymphocytes # 0.8 10*3/uL (1.4-4.0); Lymphocytes % 9.6 % (21.3-54.2); Mean Corpuscular HGB Conc 31.1 GM/DL (32-36); Mean Corpuscular Volume 84.3 FL (87-102); Platelet Count 86 T/CUMM (130-400); Red Blood Count 2.86 MC/CUMM (3.8-5.5)
[2019-10-24 04:32] LABS: ABG Base Excess 13.7 MMOL/L (-2.5-2.5); ABG HCO3 40.4 MMOL/L (20-26); ABG Oxygen Saturation 92.6 % (95-100); ABG PCO2 67.3 MM HG (35-48); ABG PH 7.396 (7.35-7.45); ABG TCO2 42.4 MMOL/L (23-27); Allen Test Positive; Pt O2 Delivery Device BIPAP
[2019-10-24 04:58] LABS: Albumin 1.8 G/DL (3.4-5.0); Bilirubin,Direct 0.81 MG/DL (0.0-0.20); Bilirubin,Indirect 1.4 MG/DL (0.0-1.0); Bilirubin,Total 2.2 MG/DL (0.2-1.0)
[2019-10-24 05:22] LABS: Anisocytosis 1+; Hypochromasia 1+; Ovalocytes Few; Target Cells Slight
[2019-10-24 05:23] LABS: Platelet Estimate Decreased; Spherocytes Slight
[2019-10-24] MEDS: NYSTATIN POWDER 15 GM BOTTLE TOP SCH ×4 (05:43→20:58)
[2019-10-24] MEDS: BUDESONIDE 0.5 MG/2 ML NEB RESP TX SCH ×2 (06:53→19:27)
[2019-10-24 07:26] LABS: Calcium 8.9 MG/DL (8.5-10.1); Osmolality,Calculated 282.1 MOS/KG (273-304)
[2019-10-24] MEDS: INSULIN REGULAR 100 UNIT/ML SUBCUT SCH ×4 (08:22→20:58)
[2019-10-24] MEDS: FUROSEMIDE 40 MG TABLET PO SCH ×2 (09:23→15:45)
[2019-10-24] MEDS: POLYETHYLENE GLYCOL POWDER 17 GM PACK PO SCH (09:23)
[2019-10-24] MEDS: GABAPENTIN 300 MG CAPSULE PO SCH ×2 (09:23→20:58)
[2019-10-24] MEDS: PANTOPRAZOLE 40 MG TABLET PO SCH (09:23)
[2019-10-24] MEDS: EZETIMIBE 10 MG TABLET PO SCH (09:24)
[2019-10-24] MEDS: POTASSIUM GLUCONATE 500 MG TABLET PO SCH (09:24)
[2019-10-24] MEDS: CETIRIZINE 10 MG TABLET PO SCH (09:24)
[2019-10-24] MEDS: RIFAXIMIN 550 MG TABLET PO SCH ×2 (09:24→20:56)
[2019-10-24] MEDS: predniSONE 20 MG TABLET PO SCH (09:24)
[2019-10-24] MEDS: busPIRone 15 MG TABLET PO SCH ×3 (09:24→20:57)
[2019-10-24] MEDS: BENZONATATE 100 MG CAPSULE PO SCH ×3 (09:24→20:57)
[2019-10-24] MEDS: ASPIRIN 325 MG TABLET PO SCH (09:24)
[2019-10-24] MEDS: CHOLECALCIFEROL 5,000 UNIT TABLET PO SCH (09:24)
[2019-10-24] MEDS: COLESTIPOL 1 GM TABLET PO SCH ×2 (09:31→20:56)
[2019-10-24] MEDS: FERROUS SULFATE 325 MG TABLET PO SCH ×2 (09:49→17:19)
[2019-10-24] MEDS: INSULIN GLARGINE 100 UNIT/ML SUBCUT SCH ×2 (09:49→17:19)
[2019-10-24] MEDS ORDERED: DEXTROSE 50% 25 GM/50 ML VIAL IV PRN ×2 (10:11→13:28)
[2019-10-24] MEDS: FLUCONAZOLE INJ 200 MG in PREMIX 1 EACH IV SCH (17:19)
[2019-10-24] MEDS: ONDANSETRON 4 MG/2 ML VIAL IV PRN (18:24)
[2019-10-24] MEDS: rOPINIRole 1 MG TABLET PO SCH (20:57)
[2019-10-24] MEDS: RIVAROXABAN 10 MG TABLET PO SCH (20:57)
[2019-10-24] MEDS: MELATONIN 3 MG TABLET PO SCH (20:57)
[2019-10-24] MEDS: SERTRALINE 100 MG TABLET PO SCH (20:57)
[2019-10-24] MEDS: rOPINIRole 4 MG TABLET PO SCH (22:23)
[2019-10-25] MEDS: ALBUTEROL/IPRATROPIUM 3 ML NEB RESP TX SCH ×6 (00:20→19:50)
[2019-10-25] MEDS: ACETAMINOPHEN 325 MG TABLET PO PRN (03:55)
[2019-10-25 04:30] LABS: ABG Base Excess 12.8 MMOL/L (-2.5-2.5); ABG HCO3 36.6 MMOL/L (20-26); ABG Oxygen Saturation 94.5 % (95-100); ABG PH 7.343 (7.35-7.45); ABG PO2 74.6 MM HG (80-95); ABG TCO2 38.5 MMOL/L (23-27)
[2019-10-25 04:41] LABS: Eosinophils # 0.2 10*3/uL (0.0-0.87); Eosinophils % 1.7 % (0.00-10.9); Hematocrit 27.1 VOL% (35.7-47.0); Hemoglobin 8.5 GM/DL (12.0-16.0); Immature Granulocytes % 1.7 %; Immature Granulocytes Absolute 0.19 #; Lymphocytes # 1.2 10*3/uL (1.4-4.0); Lymphocytes % 11.1 % (21.3-54.2); Mean Corpuscular HGB Conc 31.4 GM/DL (32-36); Mean Corpuscular Volume 83.4 FL (87-102); Mean Platelet Volume 10.4 FL (9.6-12.0); Monocytes % 7.1 % (1.7-12.7); Neutrophils % 78.4 % (38.7-73.9); Platelet Count 67 T/CUMM (130-400); Red Blood Count 3.25 MC/CUMM (3.8-5.5); Red Cell Distribution Width 30.9 % (9.3-17.3)
[2019-10-25 05:00] LABS: ABG PCO2 75.8 MM HG (35-48)
[2019-10-25 05:09] LABS: Eosinophils 1 % (0-10); Hypochromasia 1+; Lymphocytes 9 % (20-55); Ovalocytes Slight; Platelet Estimate Decreased; Segmented Neutrophils 83 % (50-85); Total Cells Counted 100
[2019-10-25 05:35] LABS: Calcium 8.3 MG/DL (8.5-10.1); Osmolality,Calculated 273.6 MOS/KG (273-304)
[2019-10-25] MEDS: BUDESONIDE 0.5 MG/2 ML NEB RESP TX SCH ×2 (07:48→19:50)
[2019-10-25] MEDS: INSULIN REGULAR 100 UNIT/ML SUBCUT SCH ×4 (07:59→20:50)
[2019-10-25] MEDS: busPIRone 15 MG TABLET PO SCH ×3 (08:46→20:49)
[2019-10-25] MEDS: POLYETHYLENE GLYCOL POWDER 17 GM PACK PO SCH (08:46)
[2019-10-25] MEDS: predniSONE 20 MG TABLET PO SCH (08:46)
[2019-10-25] MEDS: FUROSEMIDE 40 MG TABLET PO SCH (08:46)
[2019-10-25] MEDS: FERROUS SULFATE 325 MG TABLET PO SCH ×2 (08:46→16:46)
[2019-10-25] MEDS: PANTOPRAZOLE 40 MG TABLET PO SCH (08:46)
[2019-10-25] MEDS: POTASSIUM GLUCONATE 500 MG TABLET PO SCH (08:46)
[2019-10-25] MEDS: RIFAXIMIN 550 MG TABLET PO SCH ×2 (08:46→20:48)
[2019-10-25] MEDS: GABAPENTIN 300 MG CAPSULE PO SCH ×2 (08:47→20:49)
[2019-10-25] MEDS: EZETIMIBE 10 MG TABLET PO SCH (08:47)
[2019-10-25] MEDS: CHOLECALCIFEROL 5,000 UNIT TABLET PO SCH (08:47)
[2019-10-25] MEDS: ASPIRIN 325 MG TABLET PO SCH (08:47)
[2019-10-25] MEDS: LACTULOSE 20 GM/30 ML UDCUP PO SCH ×2 (08:47→21:37)
[2019-10-25] MEDS: CETIRIZINE 10 MG TABLET PO SCH (08:47)
[2019-10-25] MEDS: INSULIN GLARGINE 100 UNIT/ML SUBCUT SCH ×2 (08:47→16:47)
[2019-10-25] MEDS: BENZONATATE 100 MG CAPSULE PO SCH ×3 (08:47→20:50)
[2019-10-25] MEDS: NYSTATIN POWDER 15 GM BOTTLE TOP SCH ×3 (08:48→20:50)
[2019-10-25] MEDS ORDERED: COLESTIPOL 1 GM TABLET PO ONE (09:30)
[2019-10-25] MEDS: COLESTIPOL 1 GM TABLET PO SCH ×2 (10:03→20:49)
[2019-10-25] MEDS ORDERED: FUROSEMIDE 40 MG TABLET PO ONE (10:30)
[2019-10-25] MEDS: ONDANSETRON 4 MG/2 ML VIAL IV PRN ×2 (11:01→17:42)
[2019-10-25] MEDS: FLUCONAZOLE INJ 200 MG in PREMIX 1 EACH IV SCH (16:46)
[2019-10-25] MEDS: rOPINIRole 4 MG TABLET PO SCH (20:48)
[2019-10-25] MEDS: MELATONIN 3 MG TABLET PO SCH (20:49)
[2019-10-25] MEDS: rOPINIRole 1 MG TABLET PO SCH (20:49)
[2019-10-25] MEDS: RIVAROXABAN 10 MG TABLET PO SCH (20:50)
[2019-10-25] MEDS: SERTRALINE 100 MG TABLET PO SCH (20:54)
[2019-10-26] MEDS: ALBUTEROL/IPRATROPIUM 3 ML NEB RESP TX SCH ×7 (00:22→23:10)
[2019-10-26] MEDS: ONDANSETRON 4 MG/2 ML VIAL IV PRN ×3 (04:13→18:06)
[2019-10-26 04:29] LABS: ABG Base Excess 13.8 MMOL/L (-2.5-2.5); ABG HCO3 37.5 MMOL/L (20-26); ABG PH 7.339 (7.35-7.45); ABG PO2 66.1 MM HG (80-95); ABG TCO2 39.7 MMOL/L (23-27); Allen Test Positive; Pt O2 Delivery Device BIPAP
[2019-10-26 04:32] LABS: ABG PCO2 79.1 MM HG (35-48)
[2019-10-26] MEDS: BUDESONIDE 0.5 MG/2 ML NEB RESP TX SCH ×2 (07:15→19:27)
[2019-10-26 07:36] LABS: Calcium 8.4 MG/DL (8.5-10.1); Osmolality,Calculated 285.9 MOS/KG (273-304)
[2019-10-26 07:38] LABS: Albumin 2.5 G/DL (3.4-5.0); Bilirubin,Direct 2.4 MG/DL (0.0-0.20); Bilirubin,Indirect 1.3 MG/DL (0.0-1.0); Bilirubin,Total 3.7 MG/DL (0.2-1.0); Total Protein 5.9 G/DL (6.4-8.3)
[2019-10-26] MEDS: INSULIN REGULAR 100 UNIT/ML SUBCUT SCH ×4 (08:30→20:01)
[2019-10-26] MEDS: COLESTIPOL 1 GM TABLET PO SCH ×3 (08:30→21:51)
[2019-10-26] MEDS: EZETIMIBE 10 MG TABLET PO SCH (08:30)
[2019-10-26] MEDS: CHOLECALCIFEROL 5,000 UNIT TABLET PO SCH (08:31)
[2019-10-26] MEDS: BENZONATATE 100 MG CAPSULE PO SCH ×4 (08:31→21:53)
[2019-10-26] MEDS: GABAPENTIN 300 MG CAPSULE PO SCH ×3 (08:31→21:53)
[2019-10-26] MEDS: FERROUS SULFATE 325 MG TABLET PO SCH ×2 (08:31→16:33)
[2019-10-26] MEDS: INSULIN GLARGINE 100 UNIT/ML SUBCUT SCH ×2 (08:31→16:38)
[2019-10-26] MEDS: LACTULOSE 20 GM/30 ML UDCUP PO SCH ×3 (08:31→21:53)
[2019-10-26] MEDS: ASPIRIN 325 MG TABLET PO SCH (08:31)
[2019-10-26] MEDS: RIFAXIMIN 550 MG TABLET PO SCH ×3 (08:31→21:53)
[2019-10-26] MEDS: busPIRone 15 MG TABLET PO SCH ×4 (08:31→21:53)
[2019-10-26] MEDS: POTASSIUM GLUCONATE 500 MG TABLET PO SCH (08:31)
[2019-10-26] MEDS: PANTOPRAZOLE 40 MG TABLET PO SCH (08:32)
[2019-10-26] MEDS: predniSONE 20 MG TABLET PO SCH (08:32)
[2019-10-26] MEDS: CETIRIZINE 10 MG TABLET PO SCH (08:32)
[2019-10-26] MEDS: FUROSEMIDE 80 MG TABLET PO SCH (08:32)
[2019-10-26] MEDS: POLYETHYLENE GLYCOL POWDER 17 GM PACK PO SCH (08:32)
[2019-10-26] MEDS: NYSTATIN POWDER 15 GM BOTTLE TOP SCH ×3 (08:48→20:58)
[2019-10-26] MEDS ORDERED: LIDOCAINE 1% 20 ML VIAL MISC INJ ONE (09:54)
[2019-10-26] MEDS ORDERED: SODIUM CHLORIDE 0.9% 1,000 ML IV ONE (10:33)
[2019-10-26] MEDS: SODIUM CHLORIDE 0.9% 1,000 ML IV SCH ×2 (10:35→14:49)
[2019-10-26] MEDS ORDERED: KETAMINE 500 MG/10 ML VIAL ONE (10:50)
[2019-10-26 11:14] LABS: INR 2.2; PT Patient Result 22.7 SECS (9.8-11.9)
[2019-10-26 14:26] LABS: Hepatitis B Core IgM Quant 0.12 Index; Hepatitis B Surface Ag Quant < 0.10 Index; Hepatitis B Surface Ag Result Negative (Negative); Hepatitis C Virus Ab Quant 0.04 Index; Hepatitis C Virus Ab Result Negative (Negative)
[2019-10-26] MEDS ORDERED: SODIUM CHLORIDE 0.9% 1,000 ML IV PRN (14:30)
[2019-10-26] MEDS: FLUCONAZOLE INJ 200 MG in PREMIX 1 EACH IV SCH (16:42)
[2019-10-26] MEDS ORDERED: SODIUM CHLORIDE 0.9% 500 ML IV ONE (18:59)
[2019-10-26] MEDS: SERTRALINE 100 MG TABLET PO SCH ×2 (20:56→21:53)
[2019-10-26] MEDS: RIVAROXABAN 10 MG TABLET PO SCH ×2 (20:57→21:05)
[2019-10-26] MEDS: MELATONIN 3 MG TABLET PO SCH (20:57)
[2019-10-26 21:34] LABS: Basophils % 0.1 % (0.0-0.8); Eosinophils % 0.1 % (0.00-10.9); Hematocrit 18.2 VOL% (35.7-47.0); Immature Granulocytes % 0.7 %; Immature Granulocytes Absolute 0.09 #; Lymphocytes # 0.7 10*3/uL (1.4-4.0); Lymphocytes % 5.2 % (21.3-54.2); Mean Corpuscular HGB Conc 30.8 GM/DL (32-36); Mean Corpuscular Volume 86.7 FL (87-102); Mean Platelet Volume 10.5 FL (9.6-12.0); Monocytes % 4.9 % (1.7-12.7); NRBC # 0.02 10*3/uL; Platelet Count 69 T/CUMM (130-400); Red Cell Distribution Width 31.1 % (9.3-17.3); White Blood Count 13.8 T/CUMM (4-12)
[2019-10-26 21:38] LABS: Hemoglobin 5.6 GM/DL (12.0-16.0)
[2019-10-26 21:38] LABS: ABG Base Excess 17.3 MMOL/L (-2.5-2.5); ABG HCO3 43.5 MMOL/L (20-26); ABG Oxygen Saturation 96.2 % (95-100); ABG PH 7.408 (7.35-7.45); ABG TCO2 45.7 MMOL/L (23-27); Allen Test Positive; Pt O2 Delivery Device BIPAP
[2019-10-26 21:42] LABS: ABG PCO2 70.6 MM HG (35-48)
[2019-10-26 21:45] LABS: INR 1.7; PT Patient Result 17.9 SECS (9.8-11.9)
[2019-10-26] MEDS ORDERED: ALBUMIN 5% 12.5 GM/250 ML VIAL IV ONE ×2 (21:47)
[2019-10-26] MEDS: rOPINIRole 4 MG TABLET PO SCH (21:51)
[2019-10-26] MEDS: rOPINIRole 1 MG TABLET PO SCH (21:51)
[2019-10-26 21:54] LABS: Eosinophils 1 % (0-10); Lymphocytes 2 % (20-55); Microcytosis Slight; Segmented Neutrophils 96 % (50-85); Total Cells Counted 100
[2019-10-26 21:55] LABS: Anisocytosis 2+; Hypochromasia 2+; Platelet Estimate Adequate; Polychromasia 2+; Toxic Granulation 1+
[2019-10-26 21:56] LABS: Stomatocytes 1+
[2019-10-26] MEDS ORDERED: ALBUMIN 5% 25 GM in PREMIX 1 EACH IV ONE (22:00)
[2019-10-27] MEDS: ALBUTEROL/IPRATROPIUM 3 ML NEB RESP TX SCH ×6 (03:09→23:29)
[2019-10-27] MEDS ORDERED: LIDOCAINE 1% 5 ML VIAL MISC INJ ONE (04:40)
[2019-10-27] MEDS: BUDESONIDE 0.5 MG/2 ML NEB RESP TX SCH ×2 (07:05→19:04)
[2019-10-27 07:21] LABS: Basophils % 0.1 % (0.0-0.8); Eosinophils % 0.3 % (0.00-10.9); Hematocrit 22.1 VOL% (35.7-47.0); Immature Granulocytes % 0.8 %; Immature Granulocytes Absolute 0.11 #; Lymphocytes # 1.3 10*3/uL (1.4-4.0); Lymphocytes % 8.9 % (21.3-54.2); Mean Corpuscular HGB Conc 32.1 GM/DL (32-36); Mean Platelet Volume 10.3 FL (9.6-12.0); Monocytes % 7.5 % (1.7-12.7); Neutrophils % 82.4 % (38.7-73.9); Red Cell Distribution Width 25.6 % (9.3-17.3); White Blood Count 14.1 T/CUMM (4-12)
[2019-10-27 07:24] LABS: Hemoglobin 7.1 GM/DL (12.0-16.0); Platelet Count 87 T/CUMM (130-400)
[2019-10-27 07:33] LABS: Calcium 7.9 MG/DL (8.5-10.1); Osmolality,Calculated 293.2 MOS/KG (273-304)
[2019-10-27 07:40] LABS: Anisocytosis 1+; Hypochromasia 2+; Microcytosis 1+; Polychromasia Slight; Target Cells Slight
[2019-10-27 07:41] LABS: Platelet Estimate Decreased
[2019-10-27] MEDS: BENZONATATE 100 MG CAPSULE PO SCH ×3 (08:10→21:03)
[2019-10-27] MEDS: CHOLECALCIFEROL 5,000 UNIT TABLET PO SCH (08:10)
[2019-10-27] MEDS: RIFAXIMIN 550 MG TABLET PO SCH ×2 (08:10→21:10)
[2019-10-27] MEDS: PANTOPRAZOLE 40 MG TABLET PO SCH (08:10)
[2019-10-27] MEDS: predniSONE 20 MG TABLET PO SCH (08:10)
[2019-10-27] MEDS: POTASSIUM GLUCONATE 500 MG TABLET PO SCH (08:10)
[2019-10-27] MEDS: EZETIMIBE 10 MG TABLET PO SCH (08:10)
[2019-10-27] MEDS: FERROUS SULFATE 325 MG TABLET PO SCH ×2 (08:10→18:31)
[2019-10-27] MEDS: ASPIRIN 325 MG TABLET PO SCH (08:10)
[2019-10-27] MEDS: GABAPENTIN 300 MG CAPSULE PO SCH ×2 (08:11→21:04)
[2019-10-27] MEDS: FUROSEMIDE 80 MG TABLET PO SCH (08:11)
[2019-10-27] MEDS: CETIRIZINE 10 MG TABLET PO SCH (08:11)
[2019-10-27] MEDS: LACTULOSE 20 GM/30 ML UDCUP PO SCH ×2 (08:35→21:35)
[2019-10-27] MEDS: busPIRone 15 MG TABLET PO SCH ×3 (08:35→21:04)
[2019-10-27] MEDS: INSULIN REGULAR 100 UNIT/ML SUBCUT SCH ×4 (08:53→22:12)
[2019-10-27] MEDS: NYSTATIN POWDER 15 GM BOTTLE TOP SCH ×3 (08:53→21:10)
[2019-10-27] MEDS: POLYETHYLENE GLYCOL POWDER 17 GM PACK PO SCH (08:53)
[2019-10-27] MEDS: COLESTIPOL 1 GM TABLET PO SCH ×2 (08:54→21:03)
[2019-10-27] MEDS: INSULIN GLARGINE 100 UNIT/ML SUBCUT SCH ×2 (09:25→18:31)
[2019-10-27] MEDS: SODIUM CHLORIDE 0.9% 1,000 ML IV SCH (09:26)
[2019-10-27 09:31] LABS: Albumin 2.4 G/DL (3.4-5.0); Bilirubin,Direct 3.46 MG/DL (0.0-0.20); Bilirubin,Indirect 2.1 MG/DL (0.0-1.0); Bilirubin,Total 5.6 MG/DL (0.2-1.0); Total Protein 4.9 G/DL (6.4-8.3)
[2019-10-27] MEDS: FLUCONAZOLE INJ 100 MG in PREMIX 1 EACH IV SCH (10:09)
[2019-10-27] MEDS: ONDANSETRON 4 MG/2 ML VIAL IV PRN ×2 (15:50→18:36)
[2019-10-27 16:38] LABS: Hematocrit 25.9 VOL% (35.7-47.0); Hemoglobin 8.1 GM/DL (12.0-16.0)
[2019-10-27] MEDS: MELATONIN 3 MG TABLET PO SCH (21:03)
[2019-10-27] MEDS: rOPINIRole 1 MG TABLET PO SCH (21:04)
[2019-10-27] MEDS: RIVAROXABAN 10 MG TABLET PO SCH (21:04)
[2019-10-27] MEDS: SERTRALINE 100 MG TABLET PO SCH (21:04)
[2019-10-27] MEDS: rOPINIRole 4 MG TABLET PO SCH (21:10)
[2019-10-28] MEDS: ACETAMINOPHEN 325 MG TABLET PO PRN (00:23)
[2019-10-28] MEDS: ALBUTEROL/IPRATROPIUM 3 ML NEB RESP TX SCH ×6 (03:27→23:40)
[2019-10-28 04:38] LABS: Allen Test Positive; Pt O2 Delivery Device BIPAP
[2019-10-28 04:38] LABS: Basophils % 0.1 % (0.0-0.8); Eosinophils # 0.1 10*3/uL (0.0-0.87); Eosinophils % 0.5 % (0.00-10.9); Hematocrit 24.9 VOL% (35.7-47.0); Hemoglobin 7.9 GM/DL (12.0-16.0); Immature Granulocytes Absolute 0.16 #; Lymphocytes # 1.1 10*3/uL (1.4-4.0); Lymphocytes % 7.1 % (21.3-54.2); Mean Corpuscular HGB Conc 31.7 GM/DL (32-36); Mean Corpuscular Volume 86.5 FL (87-102); Mean Platelet Volume 10.4 FL (9.6-12.0); Monocytes % 5.3 % (1.7-12.7); NRBC # 0.02 10*3/uL; Red Blood Count 2.88 MC/CUMM (3.8-5.5); Red Cell Distribution Width 24.7 % (9.3-17.3); White Blood Count 15.4 T/CUMM (4-12)
[2019-10-28 04:39] LABS: Platelet Count 74 T/CUMM (130-400)
[2019-10-28 04:46] LABS: ABG HCO3 39.7 MMOL/L (20-26); ABG Oxygen Saturation 97.3 % (95-100); ABG PCO2 58.9 MM HG (35-48); ABG PH 7.447 (7.35-7.45); ABG PO2 103.2 MM HG (80-95); ABG TCO2 41.6 MMOL/L (23-27)
[2019-10-28 05:04] LABS: Hypochromasia 1+; Microcytosis Slight; Platelet Estimate Decreased
[2019-10-28 05:25] LABS: Osmolality,Calculated 300.1 MOS/KG (273-304)
[2019-10-28] MEDS: BUDESONIDE 0.5 MG/2 ML NEB RESP TX SCH ×2 (06:54→19:58)
[2019-10-28] MEDS: INSULIN REGULAR 100 UNIT/ML SUBCUT SCH ×4 (08:17→20:28)
[2019-10-28] MEDS: INSULIN GLARGINE 100 UNIT/ML SUBCUT SCH ×2 (08:19→16:30)
[2019-10-28] MEDS: FERROUS SULFATE 325 MG TABLET PO SCH ×2 (08:21→16:29)
[2019-10-28] MEDS: ASPIRIN 325 MG TABLET PO SCH (08:21)
[2019-10-28] MEDS: COLESTIPOL 1 GM TABLET PO SCH ×2 (08:22→20:29)
[2019-10-28] MEDS: LACTULOSE 20 GM/30 ML UDCUP PO SCH ×2 (08:22→20:45)
[2019-10-28] MEDS: busPIRone 15 MG TABLET PO SCH ×3 (08:22→20:29)
[2019-10-28] MEDS: POLYETHYLENE GLYCOL POWDER 17 GM PACK PO SCH (08:23)
[2019-10-28] MEDS: FUROSEMIDE 80 MG TABLET PO SCH (08:23)
[2019-10-28] MEDS: GABAPENTIN 300 MG CAPSULE PO SCH ×2 (08:24→20:29)
[2019-10-28] MEDS: POTASSIUM GLUCONATE 500 MG TABLET PO SCH (08:24)
[2019-10-28] MEDS: NYSTATIN POWDER 15 GM BOTTLE TOP SCH ×3 (08:24→20:48)
[2019-10-28] MEDS: PANTOPRAZOLE 40 MG TABLET PO SCH (08:25)
[2019-10-28] MEDS: CHOLECALCIFEROL 5,000 UNIT TABLET PO SCH (08:25)
[2019-10-28] MEDS: predniSONE 20 MG TABLET PO SCH (08:25)
[2019-10-28] MEDS: BENZONATATE 100 MG CAPSULE PO SCH ×3 (08:25→20:29)
[2019-10-28] MEDS: EZETIMIBE 10 MG TABLET PO SCH (08:26)
[2019-10-28] MEDS: CETIRIZINE 10 MG TABLET PO SCH (08:26)
[2019-10-28] MEDS: RIFAXIMIN 550 MG TABLET PO SCH ×2 (08:26→20:29)
[2019-10-28 08:31] LABS: Albumin 2.3 G/DL (3.4-5.0); Bilirubin,Direct 5.61 MG/DL (0.0-0.20); Bilirubin,Indirect 1.7 MG/DL (0.0-1.0); Bilirubin,Total 7.3 MG/DL (0.2-1.0); Total Protein 4.8 G/DL (6.4-8.3)
[2019-10-28] MEDS: FLUCONAZOLE INJ 100 MG in PREMIX 1 EACH IV SCH (10:59)
[2019-10-28] MEDS: rOPINIRole 4 MG TABLET PO SCH (20:29)
[2019-10-28] MEDS: RIVAROXABAN 10 MG TABLET PO SCH (20:29)
[2019-10-28] MEDS: MELATONIN 3 MG TABLET PO SCH (20:29)
[2019-10-28] MEDS: SERTRALINE 100 MG TABLET PO SCH (20:29)
[2019-10-28] MEDS: rOPINIRole 1 MG TABLET PO SCH (20:30)
[2019-10-29] MEDS: ALBUTEROL/IPRATROPIUM 3 ML NEB RESP TX SCH ×6 (02:41→23:02)
[2019-10-29 05:31] LABS: Basophils % 0.2 % (0.0-0.8); Eosinophils # 0.1 10*3/uL (0.0-0.87); Eosinophils % 0.5 % (0.00-10.9); Hematocrit 27.7 VOL% (35.7-47.0); Hemoglobin 8.9 GM/DL (12.0-16.0); Immature Granulocytes % 1.2 %; Immature Granulocytes Absolute 0.23 #; Lymphocytes % 5.3 % (21.3-54.2); Mean Corpuscular HGB Conc 32.1 GM/DL (32-36); Mean Corpuscular Volume 86.3 FL (87-102); Monocytes % 3.4 % (1.7-12.7); NRBC # 0.02 10*3/uL; Neutrophils % 89.4 % (38.7-73.9); Red Blood Count 3.21 MC/CUMM (3.8-5.5); Red Cell Distribution Width 24.9 % (9.3-17.3); White Blood Count 18.9 T/CUMM (4-12)
[2019-10-29 05:53] LABS: Calcium 8.5 MG/DL (8.5-10.1)
[2019-10-29 06:02] LABS: Platelet Count 66 T/CUMM (130-400)
[2019-10-29 06:28] LABS: Anisocytosis 1+; Hypochromasia 1+; Microcytosis 1+; Polychromasia Slight; Stomatocytes Slight
[2019-10-29 06:29] LABS: Platelet Estimate Decreased
[2019-10-29] MEDS: BUDESONIDE 0.5 MG/2 ML NEB RESP TX SCH ×2 (07:50→20:01)
[2019-10-29] MEDS: FLUCONAZOLE INJ 100 MG in PREMIX 1 EACH IV SCH (10:28)
[2019-10-29] MEDS: busPIRone 15 MG TABLET PO SCH ×3 (10:30→20:55)
[2019-10-29] MEDS: predniSONE 20 MG TABLET PO SCH (10:30)
[2019-10-29] MEDS: LACTULOSE 20 GM/30 ML UDCUP PO SCH ×2 (10:30→20:55)
[2019-10-29] MEDS: PANTOPRAZOLE 40 MG TABLET PO SCH (10:30)
[2019-10-29] MEDS: POTASSIUM GLUCONATE 500 MG TABLET PO SCH (10:30)
[2019-10-29] MEDS: ASPIRIN 325 MG TABLET PO SCH (10:30)
[2019-10-29] MEDS: COLESTIPOL 1 GM TABLET PO SCH ×2 (10:30→20:56)
[2019-10-29] MEDS: EZETIMIBE 10 MG TABLET PO SCH (10:30)
[2019-10-29] MEDS: CHOLECALCIFEROL 5,000 UNIT TABLET PO SCH (10:31)
[2019-10-29] MEDS: GABAPENTIN 300 MG CAPSULE PO SCH ×2 (10:31→20:55)
[2019-10-29] MEDS: FERROUS SULFATE 325 MG TABLET PO SCH ×2 (10:31→17:23)
[2019-10-29] MEDS: FUROSEMIDE 80 MG TABLET PO SCH (10:31)
[2019-10-29] MEDS: CETIRIZINE 10 MG TABLET PO SCH (10:31)
[2019-10-29] MEDS: RIFAXIMIN 550 MG TABLET PO SCH ×2 (10:32→20:55)
[2019-10-29] MEDS: BENZONATATE 100 MG CAPSULE PO SCH ×3 (10:32→20:55)
[2019-10-29] MEDS: POLYETHYLENE GLYCOL POWDER 17 GM PACK PO SCH (10:35)
[2019-10-29] MEDS: INSULIN REGULAR 100 UNIT/ML SUBCUT SCH ×4 (10:35→21:12)
[2019-10-29] MEDS: INSULIN GLARGINE 100 UNIT/ML SUBCUT SCH ×2 (10:35→17:24)
[2019-10-29] MEDS: NYSTATIN POWDER 15 GM BOTTLE TOP SCH ×3 (10:35→20:56)
[2019-10-29] MEDS: ONDANSETRON 4 MG/2 ML VIAL IV PRN ×2 (14:30→22:51)
[2019-10-29] MEDS: rOPINIRole 1 MG TABLET PO SCH (20:55)
[2019-10-29] MEDS: rOPINIRole 4 MG TABLET PO SCH (20:55)
[2019-10-29] MEDS: SERTRALINE 100 MG TABLET PO SCH (20:55)
[2019-10-29] MEDS: MELATONIN 3 MG TABLET PO SCH (20:55)
[2019-10-29] MEDS: RIVAROXABAN 10 MG TABLET PO SCH (20:55)
[2019-10-30] MEDS: ALBUTEROL/IPRATROPIUM 3 ML NEB RESP TX SCH ×6 (04:07→23:35)
[2019-10-30] MEDS: BUDESONIDE 0.5 MG/2 ML NEB RESP TX SCH ×2 (07:11→20:07)
[2019-10-30 07:59] LABS: Basophils % 0.1 % (0.0-0.8); Eosinophils # 0.1 10*3/uL (0.0-0.87); Eosinophils % 0.6 % (0.00-10.9); Hematocrit 30.1 VOL% (35.7-47.0); Hemoglobin 9.1 GM/DL (12.0-16.0); Immature Granulocytes % 0.7 %; Immature Granulocytes Absolute 0.13 #; Lymphocytes # 0.8 10*3/uL (1.4-4.0); Lymphocytes % 4.3 % (21.3-54.2); Mean Corpuscular HGB Conc 30.2 GM/DL (32-36); Mean Corpuscular Volume 90.7 FL (87-102); Monocytes % 1.9 % (1.7-12.7); Neutrophils % 92.4 % (38.7-73.9); Red Blood Count 3.32 MC/CUMM (3.8-5.5); Red Cell Distribution Width 24.9 % (9.3-17.3); White Blood Count 18.1 T/CUMM (4-12)
[2019-10-30 08:02] LABS: Platelet Count 53 T/CUMM (130-400)
[2019-10-30 08:19] LABS: Albumin 2.3 G/DL (3.4-5.0); Bilirubin,Total 5.9 MG/DL (0.2-1.0); Calcium 8.7 MG/DL (8.5-10.1); Total Protein 5.4 G/DL (6.4-8.3)
[2019-10-30] MEDS: BENZONATATE 100 MG CAPSULE PO SCH ×3 (08:51→20:43)
[2019-10-30] MEDS: POLYETHYLENE GLYCOL POWDER 17 GM PACK PO SCH (08:51)
[2019-10-30] MEDS: busPIRone 15 MG TABLET PO SCH ×3 (08:52→20:42)
[2019-10-30] MEDS: COLESTIPOL 1 GM TABLET PO SCH ×2 (08:52→20:42)
[2019-10-30] MEDS: FUROSEMIDE 80 MG TABLET PO SCH (08:54)
[2019-10-30] MEDS: RIFAXIMIN 550 MG TABLET PO SCH ×2 (08:54→20:43)
[2019-10-30] MEDS: predniSONE 20 MG TABLET PO SCH (08:54)
[2019-10-30] MEDS: CETIRIZINE 10 MG TABLET PO SCH (08:54)
[2019-10-30] MEDS: FERROUS SULFATE 325 MG TABLET PO SCH ×2 (08:54→16:03)
[2019-10-30] MEDS: PANTOPRAZOLE 40 MG TABLET PO SCH (08:54)
[2019-10-30] MEDS: CHOLECALCIFEROL 5,000 UNIT TABLET PO SCH (08:54)
[2019-10-30] MEDS: GABAPENTIN 300 MG CAPSULE PO SCH ×2 (08:54→20:43)
[2019-10-30] MEDS: INSULIN GLARGINE 100 UNIT/ML SUBCUT SCH ×2 (08:55→16:03)
[2019-10-30] MEDS: INSULIN REGULAR 100 UNIT/ML SUBCUT SCH ×4 (08:56→21:22)
[2019-10-30 08:57] LABS: Hypochromasia 1+; Lymphocytes 6 % (20-55); Microcytosis 1+; Platelet Estimate Decreased; Segmented Neutrophils 93 % (50-85); Total Cells Counted 100
[2019-10-30] MEDS: POTASSIUM GLUCONATE 500 MG TABLET PO SCH (08:58)
[2019-10-30] MEDS: ASPIRIN 325 MG TABLET PO SCH (08:58)
[2019-10-30] MEDS: NYSTATIN POWDER 15 GM BOTTLE TOP SCH ×3 (09:04→20:51)
[2019-10-30] MEDS: EZETIMIBE 10 MG TABLET PO SCH (09:04)
[2019-10-30] MEDS: LACTULOSE 20 GM/30 ML UDCUP PO SCH ×2 (09:04→20:42)
[2019-10-30] MEDS: FLUCONAZOLE INJ 100 MG in PREMIX 1 EACH IV SCH (09:06)
[2019-10-30] MEDS: ONDANSETRON 4 MG/2 ML VIAL IV PRN (09:11)
[2019-10-30] MEDS: ALUMINUM/MAGNES/SIMETH MAX STR 30 ML UDCUP PO PRN (16:12)
[2019-10-30] MEDS: MELATONIN 3 MG TABLET PO SCH (20:42)
[2019-10-30] MEDS: rOPINIRole 1 MG TABLET PO SCH (20:43)
[2019-10-30] MEDS: rOPINIRole 4 MG TABLET PO SCH (20:43)
[2019-10-30] MEDS: RIVAROXABAN 10 MG TABLET PO SCH (20:43)
[2019-10-30] MEDS: SERTRALINE 100 MG TABLET PO SCH (20:43)
[2019-10-31] MEDS: ALBUTEROL/IPRATROPIUM 3 ML NEB RESP TX SCH ×5 (02:18→19:36)
[2019-10-31 06:33] LABS: Basophils % 0.1 % (0.0-0.8); Eosinophils # 0.2 10*3/uL (0.0-0.87); Eosinophils % 1.5 % (0.00-10.9); Hematocrit 30.3 VOL% (35.7-47.0); Hemoglobin 9.3 GM/DL (12.0-16.0); Immature Granulocytes % 0.8 %; Immature Granulocytes Absolute 0.12 #; Lymphocytes # 1.3 10*3/uL (1.4-4.0); Mean Corpuscular HGB Conc 30.7 GM/DL (32-36); Mean Corpuscular Volume 90.2 FL (87-102); Mean Platelet Volume 10.4 FL (9.6-12.0); Monocytes % 3.2 % (1.7-12.7); Neutrophils % 86.4 % (38.7-73.9); Red Blood Count 3.36 MC/CUMM (3.8-5.5); Red Cell Distribution Width 24.4 % (9.3-17.3); White Blood Count 15.8 T/CUMM (4-12)
[2019-10-31 06:42] LABS: Platelet Count 46 T/CUMM (130-400)
[2019-10-31 06:57] LABS: Anisocytosis 2+; Basophilic Stippling Slight; Platelet Estimate Decreased; Polychromasia Slight; Target Cells Few
[2019-10-31 06:58] LABS: Macrocytosis 1+
[2019-10-31 07:04] LABS: Albumin 1.7 G/DL (3.4-5.0); Bilirubin,Total 5.2 MG/DL (0.2-1.0); Calcium 8.5 MG/DL (8.5-10.1); Osmolality,Calculated 298.8 MOS/KG (273-304); Total Protein 5.4 G/DL (6.4-8.3)
[2019-10-31] MEDS: BUDESONIDE 0.5 MG/2 ML NEB RESP TX SCH ×2 (07:27→19:36)
[2019-10-31] MEDS ORDERED: predniSONE 20 MG TABLET PO SCH (09:00)
[2019-10-31] MEDS ORDERED: DOXYCYCLINE HYCLATE INJ 200 MG, LIDOCAINE 1% INJ 20 ML in STERILE WATER INJ 30 ML INTRAPLEUR ONE (09:00)
[2019-10-31] MEDS ORDERED: predniSONE 10 MG TABLET PO SCH (09:00)
[2019-10-31] MEDS: FERROUS SULFATE 325 MG TABLET PO SCH ×2 (09:23→17:01)
[2019-10-31] MEDS: COLESTIPOL 1 GM TABLET PO SCH ×2 (09:23→20:33)
[2019-10-31] MEDS: BENZONATATE 100 MG CAPSULE PO SCH ×3 (09:23→20:33)
[2019-10-31] MEDS: busPIRone 15 MG TABLET PO SCH ×3 (09:23→20:32)
[2019-10-31] MEDS: ASPIRIN 325 MG TABLET PO SCH (09:23)
[2019-10-31] MEDS: RIFAXIMIN 550 MG TABLET PO SCH ×2 (09:23→20:33)
[2019-10-31] MEDS: POTASSIUM GLUCONATE 500 MG TABLET PO SCH (09:24)
[2019-10-31] MEDS: EZETIMIBE 10 MG TABLET PO SCH (09:24)
[2019-10-31] MEDS: GABAPENTIN 300 MG CAPSULE PO SCH ×2 (09:24→20:33)
[2019-10-31] MEDS: CHOLECALCIFEROL 5,000 UNIT TABLET PO SCH (09:24)
[2019-10-31] MEDS: PANTOPRAZOLE 40 MG TABLET PO SCH (09:24)
[2019-10-31] MEDS: predniSONE 10 MG TABLET PO SCH (09:24)
[2019-10-31] MEDS: CETIRIZINE 10 MG TABLET PO SCH (09:24)
[2019-10-31] MEDS: POLYETHYLENE GLYCOL POWDER 17 GM PACK PO SCH (09:24)
[2019-10-31] MEDS: INSULIN GLARGINE 100 UNIT/ML SUBCUT SCH ×2 (09:24→17:01)
[2019-10-31] MEDS: LACTULOSE 20 GM/30 ML UDCUP PO SCH ×2 (09:24→21:40)
[2019-10-31] MEDS: INSULIN REGULAR 100 UNIT/ML SUBCUT SCH ×4 (09:25→20:33)
[2019-10-31] MEDS: NYSTATIN POWDER 15 GM BOTTLE TOP SCH ×3 (09:46→20:33)
[2019-10-31] MEDS: FLUCONAZOLE INJ 100 MG in PREMIX 1 EACH IV SCH (09:46)
[2019-10-31] MEDS ORDERED: MORPHINE 4 MG/1 ML VIAL IV ONE (10:19)
[2019-10-31] MEDS: rOPINIRole 4 MG TABLET PO SCH (20:32)
[2019-10-31] MEDS: SERTRALINE 100 MG TABLET PO SCH (20:32)
[2019-10-31] MEDS: MELATONIN 3 MG TABLET PO SCH (20:32)
[2019-10-31] MEDS: rOPINIRole 1 MG TABLET PO SCH (20:32)
[2019-10-31] MEDS: RIVAROXABAN 10 MG TABLET PO SCH (20:33)
[2019-11-01] MEDS: ALBUTEROL/IPRATROPIUM 3 ML NEB RESP TX SCH ×7 (00:15→23:00)
[2019-11-01 06:42] LABS: Basophils % 0.1 % (0.0-0.8); Eosinophils # 0.3 10*3/uL (0.0-0.87); Hematocrit 30.8 VOL% (35.7-47.0); Hemoglobin 9.3 GM/DL (12.0-16.0); Immature Granulocytes Absolute 0.14 #; Lymphocytes % 6.9 % (21.3-54.2); Mean Corpuscular HGB Conc 30.2 GM/DL (32-36); Mean Corpuscular Volume 90.1 FL (87-102); Mean Platelet Volume 10.8 FL (9.6-12.0); Monocytes % 4.6 % (1.7-12.7); Neutrophils % 85.4 % (38.7-73.9); Platelet Count 48 T/CUMM (130-400); Red Blood Count 3.42 MC/CUMM (3.8-5.5); Red Cell Distribution Width 24.1 % (9.3-17.3); White Blood Count 14.5 T/CUMM (4-12)
[2019-11-01 07:19] LABS: Bilirubin,Total 4.6 MG/DL (0.2-1.0); Calcium 8.8 MG/DL (8.5-10.1); Osmolality,Calculated 306.2 MOS/KG (273-304); Total Protein 5.4 G/DL (6.4-8.3)
[2019-11-01] MEDS ORDERED: DOXYCYCLINE HYCLATE INJ 200 MG, LIDOCAINE 1% INJ 20 ML in STERILE WATER INJ 30 ML INTRAPLEUR ONE (07:30)
[2019-11-01] MEDS: BUDESONIDE 0.5 MG/2 ML NEB RESP TX SCH ×2 (07:40→19:00)
[2019-11-01] MEDS: INSULIN REGULAR 100 UNIT/ML SUBCUT SCH ×4 (10:06→21:32)
[2019-11-01] MEDS: FLUCONAZOLE INJ 100 MG in PREMIX 1 EACH IV SCH (10:07)
[2019-11-01] MEDS: POLYETHYLENE GLYCOL POWDER 17 GM PACK PO SCH (10:07)
[2019-11-01] MEDS: LACTULOSE 20 GM/30 ML UDCUP PO SCH ×2 (10:07→21:01)
[2019-11-01] MEDS: INSULIN GLARGINE 100 UNIT/ML SUBCUT SCH ×2 (10:07→18:00)
[2019-11-01] MEDS: ASPIRIN 325 MG TABLET PO SCH (10:09)
[2019-11-01] MEDS: CHOLECALCIFEROL 5,000 UNIT TABLET PO SCH (10:09)
[2019-11-01] MEDS: COLESTIPOL 1 GM TABLET PO SCH ×2 (10:09→20:56)
[2019-11-01] MEDS: predniSONE 10 MG TABLET PO SCH (10:09)
[2019-11-01] MEDS: GABAPENTIN 300 MG CAPSULE PO SCH ×2 (10:09→20:56)
[2019-11-01] MEDS: busPIRone 15 MG TABLET PO SCH ×3 (10:09→21:03)
[2019-11-01] MEDS: RIFAXIMIN 550 MG TABLET PO SCH ×2 (10:09→20:45)
[2019-11-01] MEDS: POTASSIUM GLUCONATE 500 MG TABLET PO SCH (10:09)
[2019-11-01] MEDS: FERROUS SULFATE 325 MG TABLET PO SCH ×2 (10:09→16:25)
[2019-11-01] MEDS: NYSTATIN POWDER 15 GM BOTTLE TOP SCH ×3 (10:10→22:17)
[2019-11-01] MEDS: EZETIMIBE 10 MG TABLET PO SCH (10:10)
[2019-11-01] MEDS: CETIRIZINE 10 MG TABLET PO SCH (10:10)
[2019-11-01] MEDS: PANTOPRAZOLE 40 MG TABLET PO SCH (10:10)
[2019-11-01] MEDS: BENZONATATE 100 MG CAPSULE PO SCH ×3 (10:10→20:56)
[2019-11-01] MEDS: rOPINIRole 4 MG TABLET PO SCH (21:03)
[2019-11-01] MEDS: SERTRALINE 100 MG TABLET PO SCH (21:03)
[2019-11-01] MEDS: MELATONIN 3 MG TABLET PO SCH (21:03)
[2019-11-01] MEDS: rOPINIRole 1 MG TABLET PO SCH (21:03)
[2019-11-01] MEDS: RIVAROXABAN 10 MG TABLET PO SCH (21:03)
[2019-11-02] MEDS: ALBUTEROL/IPRATROPIUM 3 ML NEB RESP TX SCH ×5 (03:00→20:05)
[2019-11-02 06:03] LABS: Basophils % 0.1 % (0.0-0.8); Eosinophils # 0.3 10*3/uL (0.0-0.87); Eosinophils % 1.9 % (0.00-10.9); Hemoglobin 9.9 GM/DL (12.0-16.0); Immature Granulocytes % 0.6 %; Immature Granulocytes Absolute 0.08 #; Lymphocytes # 1.2 10*3/uL (1.4-4.0); Lymphocytes % 8.3 % (21.3-54.2); Mean Corpuscular HGB Conc 30.9 GM/DL (32-36); Mean Corpuscular Volume 88.6 FL (87-102); Monocytes % 5.2 % (1.7-12.7); Neutrophils % 83.9 % (38.7-73.9); Red Blood Count 3.61 MC/CUMM (3.8-5.5); Red Cell Distribution Width 23.9 % (9.3-17.3); White Blood Count 14.3 T/CUMM (4-12)
[2019-11-02 06:05] LABS: Platelet Count 50 T/CUMM (130-400)
[2019-11-02 06:23] LABS: Hypochromasia 1+; Ovalocytes Slight; Platelet Estimate Decreased
[2019-11-02 06:33] LABS: Albumin 1.9 G/DL (3.4-5.0); Bilirubin,Total 4.8 MG/DL (0.2-1.0); Calcium 9.1 MG/DL (8.5-10.1); Osmolality,Calculated 303.1 MOS/KG (273-304); Total Protein 5.6 G/DL (6.4-8.3)
[2019-11-02] MEDS: BUDESONIDE 0.5 MG/2 ML NEB RESP TX SCH ×2 (07:09→20:05)
[2019-11-02] MEDS: BENZONATATE 100 MG CAPSULE PO SCH ×3 (08:51→20:23)
[2019-11-02] MEDS: EZETIMIBE 10 MG TABLET PO SCH (08:51)
[2019-11-02] MEDS: COLESTIPOL 1 GM TABLET PO SCH ×3 (08:51→20:24)
[2019-11-02] MEDS: GABAPENTIN 300 MG CAPSULE PO SCH ×2 (08:52→20:24)
[2019-11-02] MEDS: busPIRone 15 MG TABLET PO SCH ×3 (08:52→20:24)
[2019-11-02] MEDS: CHOLECALCIFEROL 5,000 UNIT TABLET PO SCH (08:52)
[2019-11-02] MEDS: CETIRIZINE 10 MG TABLET PO SCH (08:52)
[2019-11-02] MEDS: FERROUS SULFATE 325 MG TABLET PO SCH ×2 (08:52→17:01)
[2019-11-02] MEDS: RIFAXIMIN 550 MG TABLET PO SCH ×2 (08:52→20:24)
[2019-11-02] MEDS: ASPIRIN 325 MG TABLET PO SCH (08:52)
[2019-11-02] MEDS: POTASSIUM GLUCONATE 500 MG TABLET PO SCH (08:52)
[2019-11-02] MEDS: PANTOPRAZOLE 40 MG TABLET PO SCH (08:52)
[2019-11-02] MEDS: predniSONE 10 MG TABLET PO SCH (08:52)
[2019-11-02] MEDS: INSULIN GLARGINE 100 UNIT/ML SUBCUT SCH ×2 (08:53→17:02)
[2019-11-02] MEDS: INSULIN REGULAR 100 UNIT/ML SUBCUT SCH ×4 (08:53→20:57)
[2019-11-02] MEDS: FLUCONAZOLE INJ 100 MG in PREMIX 1 EACH IV SCH (09:00)
[2019-11-02] MEDS: LACTULOSE 20 GM/30 ML UDCUP PO SCH ×4 (09:15→21:00)
[2019-11-02] MEDS: POLYETHYLENE GLYCOL POWDER 17 GM PACK PO SCH (09:17)
[2019-11-02] MEDS: NYSTATIN POWDER 15 GM BOTTLE TOP SCH ×3 (09:18→20:58)
[2019-11-02] MEDS: ONDANSETRON 4 MG/2 ML VIAL IV PRN (12:29)
[2019-11-02] MEDS ORDERED: INSULIN GLARGINE 100 UNIT/ML SUBCUT SCH (17:45)
[2019-11-02] MEDS: SERTRALINE 100 MG TABLET PO SCH (20:23)
[2019-11-02] MEDS: rOPINIRole 1 MG TABLET PO SCH (20:23)
[2019-11-02] MEDS: rOPINIRole 4 MG TABLET PO SCH (20:23)
[2019-11-02] MEDS: RIVAROXABAN 10 MG TABLET PO SCH (20:24)
[2019-11-02] MEDS: MELATONIN 3 MG TABLET PO SCH (20:24)
[2019-11-03] MEDS: ALBUTEROL/IPRATROPIUM 3 ML NEB RESP TX SCH ×7 (00:08→22:44)
[2019-11-03] MEDS: LACTULOSE 20 GM/30 ML UDCUP PO SCH ×4 (02:24→18:26)
[2019-11-03] MEDS: BUDESONIDE 0.5 MG/2 ML NEB RESP TX SCH ×2 (07:13→20:20)
[2019-11-03] MEDS: INSULIN REGULAR 100 UNIT/ML SUBCUT SCH ×4 (09:27→22:18)
[2019-11-03] MEDS: INSULIN LISPRO 100 UNIT/ML SUBCUT SCH ×3 (09:27→17:07)
[2019-11-03] MEDS: INSULIN GLARGINE 100 UNIT/ML SUBCUT SCH (09:30)
[2019-11-03] MEDS: POLYETHYLENE GLYCOL POWDER 17 GM PACK PO SCH (09:55)
[2019-11-03] MEDS: COLESTIPOL 1 GM TABLET PO SCH ×2 (09:55→21:10)
[2019-11-03] MEDS: busPIRone 15 MG TABLET PO SCH ×3 (09:55→21:10)
[2019-11-03] MEDS: FERROUS SULFATE 325 MG TABLET PO SCH ×2 (09:55→16:25)
[2019-11-03] MEDS: ASPIRIN 325 MG TABLET PO SCH (09:55)
[2019-11-03] MEDS: POTASSIUM GLUCONATE 500 MG TABLET PO SCH (09:56)
[2019-11-03] MEDS: PANTOPRAZOLE 40 MG TABLET PO SCH (09:56)
[2019-11-03] MEDS: EZETIMIBE 10 MG TABLET PO SCH (09:56)
[2019-11-03] MEDS: RIFAXIMIN 550 MG TABLET PO SCH ×2 (09:56→21:11)
[2019-11-03] MEDS: GABAPENTIN 300 MG CAPSULE PO SCH ×2 (09:56→21:10)
[2019-11-03] MEDS: CETIRIZINE 10 MG TABLET PO SCH (09:56)
[2019-11-03] MEDS: BENZONATATE 100 MG CAPSULE PO SCH ×3 (09:56→21:11)
[2019-11-03] MEDS: CHOLECALCIFEROL 5,000 UNIT TABLET PO SCH (09:56)
[2019-11-03] MEDS: FLUCONAZOLE INJ 100 MG in PREMIX 1 EACH IV SCH (10:18)
[2019-11-03] MEDS: NYSTATIN POWDER 15 GM BOTTLE TOP SCH ×3 (10:26→21:10)
[2019-11-03] MEDS: MORPHINE 4 MG/1 ML VIAL IV PRN (17:08)
[2019-11-03] MEDS: rOPINIRole 4 MG TABLET PO SCH (21:10)
[2019-11-03] MEDS: MELATONIN 3 MG TABLET PO SCH (21:10)
[2019-11-03] MEDS: RIVAROXABAN 10 MG TABLET PO SCH (21:11)
[2019-11-03] MEDS: SERTRALINE 100 MG TABLET PO SCH (21:11)
[2019-11-03] MEDS: rOPINIRole 1 MG TABLET PO SCH (21:11)
[2019-11-04] MEDS: ALBUTEROL/IPRATROPIUM 3 ML NEB RESP TX SCH ×6 (02:11→23:55)
[2019-11-04] MEDS: LACTULOSE 20 GM/30 ML UDCUP PO SCH ×3 (02:25→18:04)
[2019-11-04] MEDS: MORPHINE 4 MG/1 ML VIAL IV PRN ×3 (03:00→22:43)
[2019-11-04] MEDS: ONDANSETRON 4 MG/2 ML VIAL IV PRN ×2 (03:02→10:11)
[2019-11-04 06:01] LABS: Basophils % 0.2 % (0.0-0.8); Eosinophils # 0.3 10*3/uL (0.0-0.87); Eosinophils % 2.4 % (0.00-10.9); Hematocrit 32.2 VOL% (35.7-47.0); Hemoglobin 9.8 GM/DL (12.0-16.0); Immature Granulocytes % 0.7 %; Immature Granulocytes Absolute 0.09 #; Lymphocytes # 1.2 10*3/uL (1.4-4.0); Lymphocytes % 8.9 % (21.3-54.2); Mean Corpuscular HGB Conc 30.4 GM/DL (32-36); Mean Corpuscular Volume 89.7 FL (87-102); Mean Platelet Volume 10.7 FL (9.6-12.0); Monocytes % 4.8 % (1.7-12.7); Red Blood Count 3.59 MC/CUMM (3.8-5.5); Red Cell Distribution Width 24.1 % (9.3-17.3); White Blood Count 13.3 T/CUMM (4-12)
[2019-11-04 06:02] LABS: Platelet Count 46 T/CUMM (130-400)
[2019-11-04 06:26] LABS: Albumin 1.8 G/DL (3.4-5.0); Bilirubin,Total 5.6 MG/DL (0.2-1.0); Calcium 8.8 MG/DL (8.5-10.1); Osmolality,Calculated 311.1 MOS/KG (273-304); Total Protein 5.5 G/DL (6.4-8.3)
[2019-11-04] MEDS: BUDESONIDE 0.5 MG/2 ML NEB RESP TX SCH ×2 (07:15→18:59)
[2019-11-04 07:53] LABS: INR 2.9; PT Patient Result 29.8 SECS (9.8-11.9)
[2019-11-04] MEDS: INSULIN LISPRO 100 UNIT/ML SUBCUT SCH ×3 (10:16→16:34)
[2019-11-04] MEDS: INSULIN REGULAR 100 UNIT/ML SUBCUT SCH ×4 (10:16→21:19)
[2019-11-04] MEDS: INSULIN GLARGINE 100 UNIT/ML SUBCUT SCH (10:16)
[2019-11-04] MEDS: COLESTIPOL 1 GM TABLET PO SCH ×2 (10:17→21:21)
[2019-11-04] MEDS: FERROUS SULFATE 325 MG TABLET PO SCH ×2 (10:17→16:33)
[2019-11-04] MEDS: RIFAXIMIN 550 MG TABLET PO SCH ×2 (10:17→21:20)
[2019-11-04] MEDS: CHOLECALCIFEROL 5,000 UNIT TABLET PO SCH (10:17)
[2019-11-04] MEDS: GABAPENTIN 300 MG CAPSULE PO SCH ×2 (10:17→21:21)
[2019-11-04] MEDS: NYSTATIN POWDER 15 GM BOTTLE TOP SCH ×3 (10:18→21:21)
[2019-11-04] MEDS: POLYETHYLENE GLYCOL POWDER 17 GM PACK PO SCH (10:18)
[2019-11-04] MEDS: ASPIRIN 325 MG TABLET PO SCH (10:18)
[2019-11-04] MEDS: busPIRone 15 MG TABLET PO SCH ×3 (10:18→21:20)
[2019-11-04] MEDS: BENZONATATE 100 MG CAPSULE PO SCH ×3 (10:18→21:20)
[2019-11-04] MEDS: EZETIMIBE 10 MG TABLET PO SCH (10:18)
[2019-11-04] MEDS: ursodioL 300 MG CAPSULE PO SCH ×2 (10:18→21:20)
[2019-11-04] MEDS: CETIRIZINE 10 MG TABLET PO SCH (10:18)
[2019-11-04] MEDS: PANTOPRAZOLE 40 MG TABLET PO SCH (10:18)
[2019-11-04] MEDS: POTASSIUM GLUCONATE 500 MG TABLET PO SCH (10:18)
[2019-11-04] MEDS: rOPINIRole 4 MG TABLET PO SCH (21:20)
[2019-11-04] MEDS: SERTRALINE 100 MG TABLET PO SCH (21:20)
[2019-11-04] MEDS: MELATONIN 3 MG TABLET PO SCH (21:20)
[2019-11-04] MEDS: rOPINIRole 1 MG TABLET PO SCH (21:20)
[2019-11-04] MEDS: RIVAROXABAN 10 MG TABLET PO SCH (21:21)
[2019-11-05] MEDS: LACTULOSE 20 GM/30 ML UDCUP PO SCH ×3 (02:35→17:34)
[2019-11-05] MEDS: ALBUTEROL/IPRATROPIUM 3 ML NEB RESP TX SCH ×6 (03:08→23:19)
[2019-11-05 06:13] LABS: Basophils % 0.1 % (0.0-0.8); Eosinophils # 0.3 10*3/uL (0.0-0.87); Eosinophils % 2.2 % (0.00-10.9); Hematocrit 32.9 VOL% (35.7-47.0); Hemoglobin 9.7 GM/DL (12.0-16.0); Immature Granulocytes % 0.7 %; Immature Granulocytes Absolute 0.09 #; Lymphocytes # 1.2 10*3/uL (1.4-4.0); Lymphocytes % 8.8 % (21.3-54.2); Mean Corpuscular HGB Conc 29.5 GM/DL (32-36); Mean Corpuscular Volume 90.9 FL (87-102); Mean Platelet Volume 11.4 FL (9.6-12.0); Monocytes % 4.3 % (1.7-12.7); Neutrophils % 83.9 % (38.7-73.9); Platelet Count 58 T/CUMM (130-400); Red Blood Count 3.62 MC/CUMM (3.8-5.5); Red Cell Distribution Width 24.1 % (9.3-17.3); White Blood Count 13.4 T/CUMM (4-12)
[2019-11-05 06:38] LABS: Albumin 1.7 G/DL (3.4-5.0); Bilirubin,Total 5.4 MG/DL (0.2-1.0); Calcium 8.6 MG/DL (8.5-10.1); Osmolality,Calculated 308.3 MOS/KG (273-304); Total Protein 5.3 G/DL (6.4-8.3)
[2019-11-05 06:58] LABS: Band Neutrophils 1 % (0-10); Eosinophils 1 % (0-10); Lymphocytes 7 % (20-55); Segmented Neutrophils 86 % (50-85); Total Cells Counted 100
[2019-11-05 06:59] LABS: Anisocytosis 1+; Hypochromasia 2+; Platelet Estimate Decreased; Target Cells 2+
[2019-11-05] MEDS: BUDESONIDE 0.5 MG/2 ML NEB RESP TX SCH ×2 (07:17→19:17)
[2019-11-05] MEDS: INSULIN LISPRO 100 UNIT/ML SUBCUT SCH ×3 (09:17→17:34)
[2019-11-05] MEDS: INSULIN GLARGINE 100 UNIT/ML SUBCUT SCH (09:17)
[2019-11-05] MEDS: RIFAXIMIN 550 MG TABLET PO SCH ×2 (09:18→20:30)
[2019-11-05] MEDS: CETIRIZINE 10 MG TABLET PO SCH (09:18)
[2019-11-05] MEDS: busPIRone 15 MG TABLET PO SCH ×3 (09:18→20:31)
[2019-11-05] MEDS: INSULIN REGULAR 100 UNIT/ML SUBCUT SCH ×4 (09:18→20:29)
[2019-11-05] MEDS: POLYETHYLENE GLYCOL POWDER 17 GM PACK PO SCH (09:18)
[2019-11-05] MEDS: BENZONATATE 100 MG CAPSULE PO SCH ×3 (09:18→20:31)
[2019-11-05] MEDS: CHOLECALCIFEROL 5,000 UNIT TABLET PO SCH (09:18)
[2019-11-05] MEDS: FERROUS SULFATE 325 MG TABLET PO SCH ×2 (09:18→17:34)
[2019-11-05] MEDS: COLESTIPOL 1 GM TABLET PO SCH ×2 (09:18→20:30)
[2019-11-05] MEDS: PANTOPRAZOLE 40 MG TABLET PO SCH (09:18)
[2019-11-05] MEDS: GABAPENTIN 300 MG CAPSULE PO SCH ×2 (09:18→20:30)
[2019-11-05] MEDS: POTASSIUM GLUCONATE 500 MG TABLET PO SCH (09:19)
[2019-11-05] MEDS: ursodioL 300 MG CAPSULE PO SCH ×2 (09:19→20:31)
[2019-11-05] MEDS: ASPIRIN 325 MG TABLET PO SCH (09:19)
[2019-11-05] MEDS: NYSTATIN POWDER 15 GM BOTTLE TOP SCH ×3 (09:19→20:29)
[2019-11-05] MEDS: EZETIMIBE 10 MG TABLET PO SCH (09:19)
[2019-11-05] MEDS ORDERED: PROPRANOLOL LA 80 MG CAPSULE PO SCH (10:00)
[2019-11-05] MEDS: PROPRANOLOL 20 MG TABLET PO SCH ×2 (10:45→20:30)
[2019-11-05] MEDS: rOPINIRole 1 MG TABLET PO SCH (20:30)
[2019-11-05] MEDS: rOPINIRole 4 MG TABLET PO SCH (20:30)
[2019-11-05] MEDS: MELATONIN 3 MG TABLET PO SCH (20:30)
[2019-11-05] MEDS: SPIRONOLACTONE 25 MG TABLET PO SCH (20:30)
[2019-11-05] MEDS: SERTRALINE 100 MG TABLET PO SCH (20:31)
[2019-11-05] MEDS: RIVAROXABAN 10 MG TABLET PO SCH (20:31)
[2019-11-06] MEDS: LACTULOSE 20 GM/30 ML UDCUP PO SCH ×3 (02:31→17:48)
[2019-11-06] MEDS: ALBUTEROL/IPRATROPIUM 3 ML NEB RESP TX SCH ×6 (03:08→23:40)
[2019-11-06 05:25] LABS: Basophils # 0.1 10*3/uL (0.0-0.2); Basophils % 0.2 % (0.0-0.8); Eosinophils # 0.6 10*3/uL (0.0-0.87); Eosinophils % 3.1 % (0.00-10.9); Hematocrit 32.2 VOL% (35.7-47.0); Hemoglobin 9.9 GM/DL (12.0-16.0); Immature Granulocytes % 0.8 %; Immature Granulocytes Absolute 0.16 #; Lymphocytes # 1.4 10*3/uL (1.4-4.0); Lymphocytes % 6.7 % (21.3-54.2); Mean Corpuscular HGB Conc 30.7 GM/DL (32-36); Mean Corpuscular Volume 88.2 FL (87-102); Monocytes % 3.7 % (1.7-12.7); Neutrophils % 85.5 % (38.7-73.9); Platelet Count 60 T/CUMM (130-400); Red Blood Count 3.65 MC/CUMM (3.8-5.5); Red Cell Distribution Width 23.5 % (9.3-17.3); White Blood Count 20.6 T/CUMM (4-12)
[2019-11-06 05:47] LABS: Albumin 1.6 G/DL (3.4-5.0); Bilirubin,Total 6.2 MG/DL (0.2-1.0); Calcium 8.4 MG/DL (8.5-10.1); Osmolality,Calculated 305.4 MOS/KG (273-304); Total Protein 5.2 G/DL (6.4-8.3)
[2019-11-06 07:25] LABS: Hypochromasia 4+; Segmented Neutrophils 92 % (50-85); Target Cells Few; Total Cells Counted 100
[2019-11-06 07:26] LABS: Microcytosis 2+; Platelet Estimate Decreased; Schistocytes Slight
[2019-11-06 07:27] LABS: Polychromasia Slight
[2019-11-06] MEDS: BUDESONIDE 0.5 MG/2 ML NEB RESP TX SCH ×2 (07:34→19:28)
[2019-11-06] MEDS: INSULIN REGULAR 100 UNIT/ML SUBCUT SCH ×4 (09:02→20:50)
[2019-11-06] MEDS: INSULIN LISPRO 100 UNIT/ML SUBCUT SCH ×3 (09:03→17:48)
[2019-11-06] MEDS: INSULIN GLARGINE 100 UNIT/ML SUBCUT SCH (09:04)
[2019-11-06] MEDS: CETIRIZINE 10 MG TABLET PO SCH (09:05)
[2019-11-06] MEDS: POTASSIUM GLUCONATE 500 MG TABLET PO SCH (09:06)
[2019-11-06] MEDS: EZETIMIBE 10 MG TABLET PO SCH (09:06)
[2019-11-06] MEDS: GABAPENTIN 300 MG CAPSULE PO SCH ×2 (09:06→21:04)
[2019-11-06] MEDS: CHOLECALCIFEROL 5,000 UNIT TABLET PO SCH (09:06)
[2019-11-06] MEDS: COLESTIPOL 1 GM TABLET PO SCH ×2 (09:06→21:04)
[2019-11-06] MEDS: NYSTATIN POWDER 15 GM BOTTLE TOP SCH ×3 (09:06→20:50)
[2019-11-06] MEDS: RIFAXIMIN 550 MG TABLET PO SCH ×2 (09:06→21:04)
[2019-11-06] MEDS: PROPRANOLOL 20 MG TABLET PO SCH ×2 (09:06→21:05)
[2019-11-06] MEDS: busPIRone 15 MG TABLET PO SCH ×3 (09:06→21:05)
[2019-11-06] MEDS: BENZONATATE 100 MG CAPSULE PO SCH ×3 (09:06→21:04)
[2019-11-06] MEDS: PANTOPRAZOLE 40 MG TABLET PO SCH (09:06)
[2019-11-06] MEDS: FERROUS SULFATE 325 MG TABLET PO SCH ×2 (09:07→16:16)
[2019-11-06] MEDS: POLYETHYLENE GLYCOL POWDER 17 GM PACK PO SCH (09:07)
[2019-11-06] MEDS: ursodioL 300 MG CAPSULE PO SCH ×2 (09:07→21:04)
[2019-11-06] MEDS: ASPIRIN 325 MG TABLET PO SCH (09:07)
[2019-11-06] MEDS: SPIRONOLACTONE 25 MG TABLET PO SCH ×2 (09:07→21:05)
[2019-11-06 11:12] LABS: ABG Base Excess 14.7 MMOL/L (-2.5-2.5); ABG HCO3 38.4 MMOL/L (20-26); ABG Oxygen Saturation 86.4 % (95-100); ABG PCO2 48.6 MM HG (35-48); ABG PH 7.521 (7.35-7.45); ABG PO2 50.6 MM HG (80-95); ABG TCO2 36.2 MMOL/L (23-27)
[2019-11-06] MEDS: MEROPENEM 500 MG in SODIUM CHLORIDE 0.9% 100 ML IV SCH (18:32)
[2019-11-06] MEDS: rOPINIRole 1 MG TABLET PO SCH (21:04)
[2019-11-06] MEDS: MELATONIN 3 MG TABLET PO SCH (21:04)
[2019-11-06] MEDS: rOPINIRole 4 MG TABLET PO SCH (21:04)
[2019-11-06] MEDS: RIVAROXABAN 10 MG TABLET PO SCH (21:05)
[2019-11-06] MEDS: SERTRALINE 100 MG TABLET PO SCH (21:05)
[2019-11-07] MEDS: MEROPENEM 500 MG in SODIUM CHLORIDE 0.9% 100 ML IV SCH ×3 (02:19→18:01)
[2019-11-07] MEDS: LACTULOSE 20 GM/30 ML UDCUP PO SCH ×2 (02:23→12:13)
[2019-11-07] MEDS: ALBUTEROL/IPRATROPIUM 3 ML NEB RESP TX SCH ×5 (02:55→19:25)
[2019-11-07 03:23] LABS: Basophils % 0.2 % (0.0-0.8); Eosinophils # 0.6 10*3/uL (0.0-0.87); Hematocrit 32.2 VOL% (35.7-47.0); Hemoglobin 9.9 GM/DL (12.0-16.0); Immature Granulocytes % 0.7 %; Immature Granulocytes Absolute 0.14 #; Lymphocytes # 1.8 10*3/uL (1.4-4.0); Lymphocytes % 9.1 % (21.3-54.2); Mean Corpuscular HGB Conc 30.7 GM/DL (32-36); Mean Corpuscular Volume 88.5 FL (87-102); Monocytes % 4.2 % (1.7-12.7); Neutrophils % 82.8 % (38.7-73.9); Platelet Count 64 T/CUMM (130-400); Red Blood Count 3.64 MC/CUMM (3.8-5.5); Red Cell Distribution Width 23.4 % (9.3-17.3); White Blood Count 19.5 T/CUMM (4-12)
[2019-11-07 04:17] LABS: Anisocytosis 1+; Hypochromasia 1+; Lymphocytes 8 % (20-55); Segmented Neutrophils 88 % (50-85); Total Cells Counted 100
[2019-11-07 04:18] LABS: Platelet Estimate Decreased; Target Cells 1+
[2019-11-07] MEDS: BUDESONIDE 0.5 MG/2 ML NEB RESP TX SCH ×2 (07:26→19:25)
[2019-11-07] MEDS: FERROUS SULFATE 325 MG TABLET PO SCH ×2 (09:12→18:01)
[2019-11-07] MEDS: INSULIN REGULAR 100 UNIT/ML SUBCUT SCH ×4 (09:12→20:49)
[2019-11-07] MEDS: INSULIN GLARGINE 100 UNIT/ML SUBCUT SCH (09:13)
[2019-11-07] MEDS: INSULIN LISPRO 100 UNIT/ML SUBCUT SCH ×3 (09:13→18:56)
[2019-11-07] MEDS: SPIRONOLACTONE 25 MG TABLET PO SCH ×2 (09:13→20:49)
[2019-11-07] MEDS: COLESTIPOL 1 GM TABLET PO SCH ×2 (09:13→20:49)
[2019-11-07] MEDS: ursodioL 300 MG CAPSULE PO SCH ×2 (09:13→20:49)
[2019-11-07] MEDS: busPIRone 15 MG TABLET PO SCH ×3 (09:13→20:49)
[2019-11-07] MEDS: PROPRANOLOL 20 MG TABLET PO SCH ×2 (09:13→20:50)
[2019-11-07] MEDS: ASPIRIN 325 MG TABLET PO SCH (09:13)
[2019-11-07] MEDS: POTASSIUM GLUCONATE 500 MG TABLET PO SCH (09:14)
[2019-11-07] MEDS: BENZONATATE 100 MG CAPSULE PO SCH ×3 (09:14→20:52)
[2019-11-07] MEDS: RIFAXIMIN 550 MG TABLET PO SCH ×2 (09:14→20:53)
[2019-11-07] MEDS: EZETIMIBE 10 MG TABLET PO SCH (09:14)
[2019-11-07] MEDS: CHOLECALCIFEROL 5,000 UNIT TABLET PO SCH (09:14)
[2019-11-07] MEDS: PANTOPRAZOLE 40 MG TABLET PO SCH (09:14)
[2019-11-07] MEDS: CETIRIZINE 10 MG TABLET PO SCH (09:14)
[2019-11-07] MEDS: GABAPENTIN 300 MG CAPSULE PO SCH ×2 (09:14→20:51)
[2019-11-07 09:53] LABS: INR 1.8; PT Patient Result 18.7 SECS (9.8-11.9)
[2019-11-07] MEDS: NYSTATIN POWDER 15 GM BOTTLE TOP SCH ×2 (09:56→15:27)
[2019-11-07 10:01] LABS: Albumin 1.7 G/DL (3.4-5.0); Bilirubin,Total 6.8 MG/DL (0.2-1.0); Calcium 8.7 MG/DL (8.5-10.1); Total Protein 5.5 G/DL (6.4-8.3)
[2019-11-07] MEDS ORDERED: LACTULOSE 320 GM/480 ML BOTTLE RECTAL PRN (13:05)
[2019-11-07] MEDS: LACTULOSE 320 GM/480 ML BOTTLE RECTAL SCH (15:27)
[2019-11-07] MEDS: SODIUM CHLORIDE 0.45% 1,000 ML IV SCH (18:01)
[2019-11-07] MEDS: MORPHINE 4 MG/1 ML VIAL IV PRN (19:43)
[2019-11-07] MEDS: MELATONIN 3 MG TABLET PO SCH (20:51)
[2019-11-07] MEDS: RIVAROXABAN 10 MG TABLET PO SCH (20:52)
[2019-11-07] MEDS: rOPINIRole 4 MG TABLET PO SCH (20:52)
[2019-11-07] MEDS: rOPINIRole 1 MG TABLET PO SCH (20:52)
[2019-11-07] MEDS: SERTRALINE 100 MG TABLET PO SCH (20:53)
[2019-11-08] MEDS: ALBUTEROL/IPRATROPIUM 3 ML NEB RESP TX SCH ×7 (01:09→23:29)
[2019-11-08] MEDS: NYSTATIN POWDER 15 GM BOTTLE TOP SCH ×4 (02:44→21:52)
[2019-11-08] MEDS: LACTULOSE 320 GM/480 ML BOTTLE RECTAL SCH ×5 (02:44→23:44)
[2019-11-08] MEDS: MEROPENEM 500 MG in SODIUM CHLORIDE 0.9% 100 ML IV SCH ×3 (02:56→18:46)
[2019-11-08 05:22] LABS: Basophils # 0.1 10*3/uL (0.0-0.2); Basophils % 0.3 % (0.0-0.8); Eosinophils # 0.4 10*3/uL (0.0-0.87); Eosinophils % 1.8 % (0.00-10.9); Hematocrit 32.2 VOL% (35.7-47.0); Hemoglobin 9.7 GM/DL (12.0-16.0); Immature Granulocytes % 0.7 %; Immature Granulocytes Absolute 0.14 #; Lymphocytes # 1.6 10*3/uL (1.4-4.0); Lymphocytes % 7.7 % (21.3-54.2); Mean Corpuscular HGB Conc 30.1 GM/DL (32-36); Mean Corpuscular Volume 90.4 FL (87-102); Monocytes % 4.1 % (1.7-12.7); Neutrophils % 85.4 % (38.7-73.9); Platelet Count 67 T/CUMM (130-400); Red Blood Count 3.56 MC/CUMM (3.8-5.5); Red Cell Distribution Width 23.9 % (9.3-17.3); White Blood Count 21.4 T/CUMM (4-12)
[2019-11-08 05:43] LABS: Band Neutrophils 2 % (0-10); Eosinophils 1 % (0-10); Hypochromasia 2+; Lymphocytes 5 % (20-55); Segmented Neutrophils 87 % (50-85); Total Cells Counted 100
[2019-11-08 05:44] LABS: Microcytosis 2+; Platelet Estimate Decreased; Polychromasia Slight; Target Cells Few
[2019-11-08 06:03] LABS: Albumin 1.6 G/DL (3.4-5.0); Bilirubin,Total 7.8 MG/DL (0.2-1.0); Calcium 8.5 MG/DL (8.5-10.1); Osmolality,Calculated 319.8 MOS/KG (273-304); Total Protein 5.3 G/DL (6.4-8.3)
[2019-11-08] MEDS: SODIUM CHLORIDE 0.45% 1,000 ML IV SCH ×2 (06:25→20:42)
[2019-11-08] MEDS: BUDESONIDE 0.5 MG/2 ML NEB RESP TX SCH ×2 (07:12→19:10)
[2019-11-08] MEDS: FERROUS SULFATE 325 MG TABLET PO SCH ×2 (07:38→18:36)
[2019-11-08] MEDS ORDERED: DOXYCYCLINE HYCLATE INJ 200 MG, LIDOCAINE 1% INJ 20 ML in STERILE WATER INJ 30 ML INTRAPLEUR ONE (08:00)
[2019-11-08] MEDS: INSULIN LISPRO 100 UNIT/ML SUBCUT SCH ×3 (09:42→18:36)
[2019-11-08] MEDS: ursodioL 300 MG CAPSULE PO SCH ×2 (09:43→21:50)
[2019-11-08] MEDS: INSULIN REGULAR 100 UNIT/ML SUBCUT SCH ×4 (09:43→21:59)
[2019-11-08] MEDS: busPIRone 15 MG TABLET PO SCH ×3 (09:43→21:50)
[2019-11-08] MEDS: SPIRONOLACTONE 25 MG TABLET PO SCH ×2 (09:43→21:50)
[2019-11-08] MEDS: ASPIRIN 325 MG TABLET PO SCH (09:43)
[2019-11-08] MEDS: COLESTIPOL 1 GM TABLET PO SCH ×2 (09:44→21:52)
[2019-11-08] MEDS: PANTOPRAZOLE 40 MG TABLET PO SCH (09:44)
[2019-11-08] MEDS: INSULIN GLARGINE 100 UNIT/ML SUBCUT SCH (09:44)
[2019-11-08] MEDS: BENZONATATE 100 MG CAPSULE PO SCH ×3 (09:44→21:53)
[2019-11-08] MEDS: GABAPENTIN 300 MG CAPSULE PO SCH ×2 (09:44→21:52)
[2019-11-08] MEDS: PROPRANOLOL 20 MG TABLET PO SCH ×2 (09:44→21:52)
[2019-11-08] MEDS: POTASSIUM GLUCONATE 500 MG TABLET PO SCH (09:44)
[2019-11-08] MEDS: CHOLECALCIFEROL 5,000 UNIT TABLET PO SCH (09:45)
[2019-11-08] MEDS: CETIRIZINE 10 MG TABLET PO SCH (09:45)
[2019-11-08] MEDS: EZETIMIBE 10 MG TABLET PO SCH (09:45)
[2019-11-08] MEDS: RIFAXIMIN 550 MG TABLET PO SCH ×2 (09:45→21:53)
[2019-11-08] MEDS: MORPHINE 4 MG/1 ML VIAL IV PRN (15:54)
[2019-11-08] MEDS: MELATONIN 3 MG TABLET PO SCH (21:52)
[2019-11-08] MEDS: rOPINIRole 4 MG TABLET PO SCH (21:53)
[2019-11-08] MEDS: RIVAROXABAN 10 MG TABLET PO SCH (21:53)
[2019-11-08] MEDS: SERTRALINE 100 MG TABLET PO SCH (21:53)
[2019-11-08] MEDS: rOPINIRole 1 MG TABLET PO SCH (21:53)
[2019-11-09] MEDS: MORPHINE 4 MG/1 ML VIAL IV PRN ×3 (00:30→08:56)
[2019-11-09] MEDS: MEROPENEM 500 MG in SODIUM CHLORIDE 0.9% 100 ML IV SCH ×3 (03:34→17:17)
[2019-11-09] MEDS: ALBUTEROL/IPRATROPIUM 3 ML NEB RESP TX SCH ×5 (03:58→19:48)
[2019-11-09] MEDS: LACTULOSE 320 GM/480 ML BOTTLE RECTAL SCH ×3 (04:54→15:35)
[2019-11-09 05:34] LABS: Basophils % 0.3 % (0.0-0.8); Eosinophils # 0.5 10*3/uL (0.0-0.87); Eosinophils % 3.2 % (0.00-10.9); Hemoglobin 9.8 GM/DL (12.0-16.0); Immature Granulocytes % 0.6 %; Immature Granulocytes Absolute 0.09 #; Lymphocytes # 1.7 10*3/uL (1.4-4.0); Lymphocytes % 11.6 % (21.3-54.2); Mean Corpuscular HGB Conc 30.6 GM/DL (32-36); Mean Corpuscular Volume 89.4 FL (87-102); Mean Platelet Volume 11.8 FL (9.6-12.0); Monocytes % 5.6 % (1.7-12.7); Neutrophils % 78.7 % (38.7-73.9); Platelet Count 68 T/CUMM (130-400); Red Blood Count 3.58 MC/CUMM (3.8-5.5); Red Cell Distribution Width 23.9 % (9.3-17.3)
[2019-11-09 06:01] LABS: Albumin 1.4 G/DL (3.4-5.0); Bilirubin,Total 7.2 MG/DL (0.2-1.0); Calcium 8.4 MG/DL (8.5-10.1); Osmolality,Calculated 318.8 MOS/KG (273-304); Total Protein 5.2 G/DL (6.4-8.3)
[2019-11-09 06:06] LABS: Eosinophils 5 % (0-10); Hypochromasia 2+; Lymphocytes 6 % (20-55); Microcytosis 1+; Platelet Estimate Decreased; Segmented Neutrophils 85 % (50-85); Total Cells Counted 100
[2019-11-09] MEDS: BUDESONIDE 0.5 MG/2 ML NEB RESP TX SCH ×2 (07:36→19:48)
[2019-11-09] MEDS: INSULIN LISPRO 100 UNIT/ML SUBCUT SCH ×6 (07:54→21:49)
[2019-11-09] MEDS: ursodioL 300 MG CAPSULE PO SCH ×2 (08:26→20:43)
[2019-11-09] MEDS: FERROUS SULFATE 325 MG TABLET PO SCH ×2 (08:26→16:08)
[2019-11-09] MEDS: COLESTIPOL 1 GM TABLET PO SCH ×2 (08:30→20:42)
[2019-11-09] MEDS: PANTOPRAZOLE 40 MG TABLET PO SCH (08:30)
[2019-11-09] MEDS: busPIRone 15 MG TABLET PO SCH ×3 (08:30→20:41)
[2019-11-09] MEDS: PROPRANOLOL 20 MG TABLET PO SCH ×2 (08:30→20:43)
[2019-11-09] MEDS: GABAPENTIN 300 MG CAPSULE PO SCH ×2 (08:30→20:43)
[2019-11-09] MEDS: POTASSIUM GLUCONATE 500 MG TABLET PO SCH (08:30)
[2019-11-09] MEDS: SPIRONOLACTONE 25 MG TABLET PO SCH ×2 (08:30→20:42)
[2019-11-09] MEDS: ASPIRIN 325 MG TABLET PO SCH (08:30)
[2019-11-09] MEDS: BENZONATATE 100 MG CAPSULE PO SCH ×3 (08:31→20:42)
[2019-11-09] MEDS: CETIRIZINE 10 MG TABLET PO SCH (08:31)
[2019-11-09] MEDS: EZETIMIBE 10 MG TABLET PO SCH (08:31)
[2019-11-09] MEDS: RIFAXIMIN 550 MG TABLET PO SCH ×2 (08:31→20:43)
[2019-11-09] MEDS: CHOLECALCIFEROL 5,000 UNIT TABLET PO SCH (08:31)
[2019-11-09] MEDS: INSULIN REGULAR 100 UNIT/ML SUBCUT SCH (08:46)
[2019-11-09] MEDS: INSULIN GLARGINE 100 UNIT/ML SUBCUT SCH (08:47)
[2019-11-09] MEDS: NYSTATIN POWDER 15 GM BOTTLE TOP SCH ×3 (08:48→21:53)
[2019-11-09] MEDS: SODIUM CHLORIDE 0.45% 1,000 ML IV SCH (09:13)
[2019-11-09] MEDS: RIVAROXABAN 10 MG TABLET PO SCH (20:42)
[2019-11-09] MEDS: rOPINIRole 4 MG TABLET PO SCH (20:42)
[2019-11-09] MEDS: LACTULOSE 20 GM/30 ML UDCUP PO SCH (20:43)
[2019-11-09] MEDS: SERTRALINE 100 MG TABLET PO SCH (20:43)
[2019-11-09] MEDS: MELATONIN 3 MG TABLET PO SCH (20:43)
[2019-11-09] MEDS: rOPINIRole 1 MG TABLET PO SCH (21:52)
[2019-11-10] MEDS: SODIUM CHLORIDE 0.45% 1,000 ML IV SCH
[2019-11-10] MEDS: ALBUTEROL/IPRATROPIUM 3 ML NEB RESP TX SCH ×7 (00:23→23:27)
[2019-11-10] MEDS: MEROPENEM 500 MG in SODIUM CHLORIDE 0.9% 100 ML IV SCH ×3 (02:41→18:33)
[2019-11-10 06:16] LABS: Basophils % 0.3 % (0.0-0.8); Eosinophils # 0.6 10*3/uL (0.0-0.87); Eosinophils % 4.2 % (0.00-10.9); Hematocrit 31.3 VOL% (35.7-47.0); Hemoglobin 9.6 GM/DL (12.0-16.0); Immature Granulocytes % 0.7 %; Lymphocytes # 1.7 10*3/uL (1.4-4.0); Lymphocytes % 11.9 % (21.3-54.2); Mean Corpuscular HGB Conc 30.7 GM/DL (32-36); Mean Corpuscular Volume 89.7 FL (87-102); Monocytes % 6.7 % (1.7-12.7); Neutrophils % 76.2 % (38.7-73.9); Platelet Count 60 T/CUMM (130-400); Red Blood Count 3.49 MC/CUMM (3.8-5.5); Red Cell Distribution Width 23.6 % (9.3-17.3); White Blood Count 14.4 T/CUMM (4-12)
[2019-11-10 06:26] LABS: Calcium 8.2 MG/DL (8.5-10.1); Osmolality,Calculated 318.8 MOS/KG (273-304)
[2019-11-10 06:50] LABS: Platelet Estimate Decreased; Target Cells Few
[2019-11-10 06:51] LABS: Anisocytosis 2+; Basophilic Stippling Slight; Macrocytosis 1+
[2019-11-10] MEDS: BUDESONIDE 0.5 MG/2 ML NEB RESP TX SCH ×2 (07:40→19:10)
[2019-11-10] MEDS: busPIRone 15 MG TABLET PO SCH ×3 (09:21→22:14)
[2019-11-10] MEDS: INSULIN LISPRO 100 UNIT/ML SUBCUT SCH ×7 (09:21→22:15)
[2019-11-10] MEDS: FERROUS SULFATE 325 MG TABLET PO SCH ×2 (09:21→19:07)
[2019-11-10] MEDS: EZETIMIBE 10 MG TABLET PO SCH (09:21)
[2019-11-10] MEDS: ASPIRIN 325 MG TABLET PO SCH (09:22)
[2019-11-10] MEDS: GABAPENTIN 300 MG CAPSULE PO SCH ×2 (09:22→22:16)
[2019-11-10] MEDS: PROPRANOLOL 20 MG TABLET PO SCH ×2 (09:22→22:08)
[2019-11-10] MEDS: CETIRIZINE 10 MG TABLET PO SCH (09:22)
[2019-11-10] MEDS: PANTOPRAZOLE 40 MG TABLET PO SCH (09:22)
[2019-11-10] MEDS: POTASSIUM GLUCONATE 500 MG TABLET PO SCH (09:22)
[2019-11-10] MEDS: CHOLECALCIFEROL 5,000 UNIT TABLET PO SCH (09:22)
[2019-11-10] MEDS: INSULIN GLARGINE 100 UNIT/ML SUBCUT SCH (09:22)
[2019-11-10] MEDS: COLESTIPOL 1 GM TABLET PO SCH ×2 (09:23→22:15)
[2019-11-10] MEDS: LACTULOSE 20 GM/30 ML UDCUP PO SCH ×3 (09:23→22:14)
[2019-11-10] MEDS: SPIRONOLACTONE 25 MG TABLET PO SCH ×2 (09:23→22:14)
[2019-11-10] MEDS: MORPHINE 4 MG/1 ML VIAL IV PRN (09:24)
[2019-11-10] MEDS: NYSTATIN POWDER 15 GM BOTTLE TOP SCH ×3 (09:35→22:15)
[2019-11-10] MEDS: ursodioL 300 MG CAPSULE PO SCH ×2 (09:35→22:14)
[2019-11-10] MEDS: BENZONATATE 100 MG CAPSULE PO SCH ×3 (09:35→22:16)
[2019-11-10] MEDS: RIFAXIMIN 550 MG TABLET PO SCH ×2 (09:35→22:16)
[2019-11-10 10:20] LABS: Albumin 1.5 G/DL (3.4-5.0); Bilirubin,Direct 4.25 MG/DL (0.0-0.20); Bilirubin,Total 5.2 MG/DL (0.2-1.0); Total Protein 5.1 G/DL (6.4-8.3)
[2019-11-10] MEDS: MELATONIN 3 MG TABLET PO SCH (22:15)
[2019-11-10] MEDS: rOPINIRole 1 MG TABLET PO SCH (22:16)
[2019-11-10] MEDS: RIVAROXABAN 10 MG TABLET PO SCH (22:16)
[2019-11-10] MEDS: rOPINIRole 4 MG TABLET PO SCH (22:16)
[2019-11-10] MEDS: SERTRALINE 100 MG TABLET PO SCH (22:16)
[2019-11-11] MEDS: MEROPENEM 500 MG in SODIUM CHLORIDE 0.9% 100 ML IV SCH ×3 (03:00→17:30)
[2019-11-11] MEDS: ALBUTEROL/IPRATROPIUM 3 ML NEB RESP TX SCH ×5 (03:05→19:20)
[2019-11-11 05:50] LABS: Albumin 1.3 G/DL (3.4-5.0); Bilirubin,Total 5.1 MG/DL (0.2-1.0); Calcium 8.2 MG/DL (8.5-10.1); Osmolality,Calculated 315.3 MOS/KG (273-304); Total Protein 5.3 G/DL (6.4-8.3)
[2019-11-11] MEDS: BUDESONIDE 0.5 MG/2 ML NEB RESP TX SCH ×2 (07:30→19:20)
[2019-11-11 07:38] LABS: Basophils # 0.1 10*3/uL (0.0-0.2); Basophils % 0.4 % (0.0-0.8); Eosinophils # 0.4 10*3/uL (0.0-0.87); Eosinophils % 2.1 % (0.00-10.9); Hematocrit 33.1 VOL% (35.7-47.0); Hemoglobin 9.9 GM/DL (12.0-16.0); Immature Granulocytes % 0.7 %; Immature Granulocytes Absolute 0.14 #; Lymphocytes % 10.5 % (21.3-54.2); Mean Corpuscular HGB Conc 29.9 GM/DL (32-36); Mean Corpuscular Volume 89.9 FL (87-102); Monocytes % 7.1 % (1.7-12.7); Neutrophils % 79.2 % (38.7-73.9); Red Blood Count 3.68 MC/CUMM (3.8-5.5); White Blood Count 18.8 T/CUMM (4-12)
[2019-11-11 07:43] LABS: Platelet Count 63 T/CUMM (130-400)
[2019-11-11 08:01] LABS: Hypochromasia 2+; Microcytosis 1+; Target Cells Few
[2019-11-11 08:02] LABS: Platelet Estimate Decreased; Polychromasia Slight
[2019-11-11] MEDS: INSULIN LISPRO 100 UNIT/ML SUBCUT SCH ×7 (10:15→20:36)
[2019-11-11] MEDS: INSULIN GLARGINE 100 UNIT/ML SUBCUT SCH (10:15)
[2019-11-11] MEDS: NYSTATIN POWDER 15 GM BOTTLE TOP SCH ×3 (10:17→20:37)
[2019-11-11] MEDS: SPIRONOLACTONE 25 MG TABLET PO SCH ×2 (10:18→20:35)
[2019-11-11] MEDS: ursodioL 300 MG CAPSULE PO SCH ×2 (10:19→20:35)
[2019-11-11] MEDS: busPIRone 15 MG TABLET PO SCH ×3 (10:20→20:35)
[2019-11-11] MEDS: COLESTIPOL 1 GM TABLET PO SCH ×2 (10:20→20:35)
[2019-11-11] MEDS: GABAPENTIN 300 MG CAPSULE PO SCH ×2 (10:20→20:37)
[2019-11-11] MEDS: BENZONATATE 100 MG CAPSULE PO SCH ×3 (10:21→20:37)
[2019-11-11] MEDS: CETIRIZINE 10 MG TABLET PO SCH (10:22)
[2019-11-11] MEDS: RIFAXIMIN 550 MG TABLET PO SCH ×2 (10:22→20:42)
[2019-11-11] MEDS: CHOLECALCIFEROL 5,000 UNIT TABLET PO SCH (10:22)
[2019-11-11] MEDS: PANTOPRAZOLE 40 MG TABLET PO SCH (10:23)
[2019-11-11] MEDS: EZETIMIBE 10 MG TABLET PO SCH (10:23)
[2019-11-11] MEDS: LACTULOSE 20 GM/30 ML UDCUP PO SCH ×3 (10:24→20:35)
[2019-11-11] MEDS: PROPRANOLOL 20 MG TABLET PO SCH ×2 (10:24→20:36)
[2019-11-11] MEDS: FERROUS SULFATE 325 MG TABLET PO SCH ×2 (10:24→17:10)
[2019-11-11] MEDS: ASPIRIN 325 MG TABLET PO SCH (10:55)
[2019-11-11] MEDS: POTASSIUM GLUCONATE 500 MG TABLET PO SCH (10:56)
[2019-11-11] MEDS: MELATONIN 3 MG TABLET PO SCH (20:36)
[2019-11-11] MEDS: rOPINIRole 1 MG TABLET PO SCH (20:37)
[2019-11-11] MEDS: RIVAROXABAN 10 MG TABLET PO SCH (20:37)
[2019-11-11] MEDS: rOPINIRole 4 MG TABLET PO SCH (20:37)
[2019-11-11] MEDS: SERTRALINE 100 MG TABLET PO SCH (20:42)
[2019-11-12] MEDS: ALBUTEROL/IPRATROPIUM 3 ML NEB RESP TX SCH ×7 (00:38→23:54)
[2019-11-12] MEDS: MEROPENEM 500 MG in SODIUM CHLORIDE 0.9% 100 ML IV SCH (02:11)
[2019-11-12] MEDS: BUDESONIDE 0.5 MG/2 ML NEB RESP TX SCH ×2 (07:21→19:41)
[2019-11-12 08:11] LABS: Albumin 1.4 G/DL (3.4-5.0); Bilirubin,Total 5.8 MG/DL (0.2-1.0); Calcium 8.6 MG/DL (8.5-10.1); Total Protein 5.8 G/DL (6.4-8.3)
[2019-11-12] MEDS: ursodioL 300 MG CAPSULE PO SCH ×2 (08:53→21:02)
[2019-11-12] MEDS: FERROUS SULFATE 325 MG TABLET PO SCH ×2 (08:53→17:40)
[2019-11-12] MEDS: busPIRone 15 MG TABLET PO SCH ×3 (08:53→21:02)
[2019-11-12] MEDS: ASPIRIN 325 MG TABLET PO SCH (08:53)
[2019-11-12] MEDS: LACTULOSE 20 GM/30 ML UDCUP PO SCH ×3 (08:54→21:02)
[2019-11-12] MEDS: GABAPENTIN 300 MG CAPSULE PO SCH ×2 (08:54→21:03)
[2019-11-12] MEDS: COLESTIPOL 1 GM TABLET PO SCH ×2 (08:54→21:02)
[2019-11-12] MEDS: POTASSIUM GLUCONATE 500 MG TABLET PO SCH (08:54)
[2019-11-12] MEDS: BENZONATATE 100 MG CAPSULE PO SCH ×3 (08:55→21:03)
[2019-11-12] MEDS: CHOLECALCIFEROL 5,000 UNIT TABLET PO SCH (08:55)
[2019-11-12] MEDS: EZETIMIBE 10 MG TABLET PO SCH (08:55)
[2019-11-12] MEDS: PANTOPRAZOLE 40 MG TABLET PO SCH (08:55)
[2019-11-12] MEDS: CETIRIZINE 10 MG TABLET PO SCH (08:56)
[2019-11-12] MEDS: PROPRANOLOL 10 MG TABLET PO SCH ×2 (10:54→21:03)
[2019-11-12] MEDS: INSULIN LISPRO 100 UNIT/ML SUBCUT SCH ×7 (10:54→20:55)
[2019-11-12] MEDS: NYSTATIN POWDER 15 GM BOTTLE TOP SCH ×3 (10:55→21:03)
[2019-11-12] MEDS: INSULIN GLARGINE 100 UNIT/ML SUBCUT SCH (10:55)
[2019-11-12 11:30] LABS: Basophils # 0.1 10*3/uL (0.0-0.2); Basophils % 0.4 % (0.0-0.8); Eosinophils # 0.4 10*3/uL (0.0-0.87); Hematocrit 36.1 VOL% (35.7-47.0); Hemoglobin 10.8 GM/DL (12.0-16.0); Lymphocytes # 2.3 10*3/uL (1.4-4.0); Lymphocytes % 11.9 % (21.3-54.2); Mean Corpuscular HGB Conc 29.9 GM/DL (32-36); Mean Corpuscular Volume 91.9 FL (87-102); Monocytes % 6.1 % (1.7-12.7); Neutrophils % 78.6 % (38.7-73.9); Platelet Count 74 T/CUMM (130-400); Red Blood Count 3.93 MC/CUMM (3.8-5.5); Red Cell Distribution Width 24.5 % (9.3-17.3); White Blood Count 19.4 T/CUMM (4-12)
[2019-11-12 11:57] LABS: Platelet Estimate Decreased
[2019-11-12 11:58] LABS: Anisocytosis 2+; Macrocytosis 1+
[2019-11-12] MEDS: ACETAMINOPHEN 325 MG TABLET PO PRN ×2 (14:31→22:02)
[2019-11-12] MEDS: ONDANSETRON 4 MG/2 ML VIAL IV PRN (14:31)
[2019-11-12] MEDS ORDERED: FUROSEMIDE 40 MG/4 ML VIAL IV ONE (18:24)
[2019-11-12] MEDS ORDERED: FUROSEMIDE 40 MG/4 ML VIAL ONE (18:26)
[2019-11-12] MEDS: rOPINIRole 4 MG TABLET PO SCH (21:03)
[2019-11-12] MEDS: rOPINIRole 1 MG TABLET PO SCH (21:03)
[2019-11-12] MEDS: MELATONIN 3 MG TABLET PO SCH (21:03)
[2019-11-12] MEDS: RIVAROXABAN 10 MG TABLET PO SCH (21:03)
[2019-11-12] MEDS: SERTRALINE 100 MG TABLET PO SCH (21:03)
[2019-11-13] MEDS: ALBUTEROL/IPRATROPIUM 3 ML NEB RESP TX SCH ×4 (03:02→20:40)
[2019-11-13] MEDS: BUDESONIDE 0.5 MG/2 ML NEB RESP TX SCH ×2 (07:33→20:40)
[2019-11-13] MEDS: MORPHINE 4 MG/1 ML VIAL IV PRN ×6 (09:11→20:48)
[2019-11-13] MEDS: BENZONATATE 100 MG CAPSULE PO SCH ×3 (09:19→20:46)
[2019-11-13] MEDS: CETIRIZINE 10 MG TABLET PO SCH (09:19)
[2019-11-13] MEDS: busPIRone 15 MG TABLET PO SCH ×3 (09:20→20:45)
[2019-11-13] MEDS: GABAPENTIN 300 MG CAPSULE PO SCH ×2 (09:20→20:46)
[2019-11-13] MEDS: POTASSIUM GLUCONATE 500 MG TABLET PO SCH (09:20)
[2019-11-13] MEDS: ursodioL 300 MG CAPSULE PO SCH ×2 (09:20→20:45)
[2019-11-13] MEDS: PANTOPRAZOLE 40 MG TABLET PO SCH (09:20)
[2019-11-13] MEDS: INSULIN GLARGINE 100 UNIT/ML SUBCUT SCH (09:20)
[2019-11-13] MEDS: INSULIN LISPRO 100 UNIT/ML SUBCUT SCH ×7 (09:21→20:45)
[2019-11-13] MEDS: LACTULOSE 20 GM/30 ML UDCUP PO SCH ×3 (09:21→20:45)
[2019-11-13] MEDS: FERROUS SULFATE 325 MG TABLET PO SCH (10:24)
[2019-11-13] MEDS: ASPIRIN 325 MG TABLET PO SCH (10:24)
[2019-11-13] MEDS: COLESTIPOL 1 GM TABLET PO SCH (10:24)
[2019-11-13] MEDS: EZETIMIBE 10 MG TABLET PO SCH (10:25)
[2019-11-13] MEDS: PROPRANOLOL 10 MG TABLET PO SCH (10:25)
[2019-11-13] MEDS: CHOLECALCIFEROL 5,000 UNIT TABLET PO SCH (10:25)
[2019-11-13] MEDS: NYSTATIN POWDER 15 GM BOTTLE TOP SCH ×3 (11:22→20:45)
[2019-11-13 11:49] VITALS: BP 93/52
[2019-11-13] MEDS: MELATONIN 3 MG TABLET PO SCH (20:45)
[2019-11-13] MEDS: rOPINIRole 4 MG TABLET PO SCH (20:46)
[2019-11-13] MEDS: SERTRALINE 100 MG TABLET PO SCH (20:46)
[2019-11-13] MEDS: rOPINIRole 1 MG TABLET PO SCH (20:46)
== END 2019-11-13 21:19 | disposition expired | DRG 193 ==
LOC: N.ED 16:16 → N.EDINP 17:55 → SUATTDRO 17:55 → N.2E 18:43 → N.3E 10-10 16:02 → N.4E 10-17 10:40 → N.ICU 10-23 16:41 → N.4E 10-28 18:05
PROVIDERS: ADMIT Hospitalist; ATTEND Internal Medicine